=== PATIENT | male | born 1945 | race Caucasian/White ===

== ENCOUNTER 2016-09-05 15:16 | Inpatient (IN) | payer OTHER ==
[~2016-09-05] VITALS: Ht 172.7 cm; Wt 91.0 kg
[~2016-09-05 15:16] MED LIST: ASPEC81 PO; BETA0.1C3 TOP; CLOT1CRE3 TOP; CMD5 PO; CYCL-259 PO; DIGO0.1267 PO; HYDR1TAB2 PO; LISI5TAB3 PO; METO-217 PO; MULT-506 PO; NITR0.4S UT; PRLSR20 PO; SIMV80TA2 PO
[2016-09-05] MEDS ORDERED: SODIUM CHLORIDE 0.9% 1000ML 1,000 ML IV STA ×4 (15:47→17:50)
--- NOTE | 2016-09-05 15:53 | EMERGENCY ROOM VISIT NOTE ---
History Report prepared by Scribe: Annette Ram Under the Supervision of: Dr. Keven Hodge D.O. First contact with patient: 15:30 Chief Complaint: COUGH Stated Complaint: COUGHING, HOT History of Present Illness The patient is a 71 year old male who presents to the Emergency Room with complaints of persistent abdominal pain for the past 2 to 3 days. He is accompanied by his . He rates his discomfort as a 6/10 in severity. He denies any recent vomiting or diarrhea. He also complains of low back pain, intermittent fevers, diaphoresis and a cough for the past 1 month. The patient has a history of previous bypass surgery and mechanical valve replacement. He is currently on Coumadin and his admits to a family history of heart disease. Source of History: patient, spouse/significant other () Onset: 2 to 3 days [employer] Position: abdomen Symptom Intensity: 6/10 Timing: other (persistent) Associated Symptoms: + fevers, + diaphoresis, + cough, + back pain (low back pain), No vomiting, No diarrhea Review of Systems See HPI for pertinent positives & negatives. A total of 10 systems reviewed and were otherwise negative. Past Medical & Surgical Surgical Problems: (1) History of heart bypass surgery Family History Heart disease Social History Smoking Status: Former Smoker Alcohol Use: occasionally Drug Use: none Marital Status: Housing Status: lives with family Occupation Status: retired Current/Historical Medications Scheduled Digoxin (Digoxin), 0.125 MG PO DAILY Lisinopril (Zestril), 5 MG PO DAILY Metoprolol Succ (Toprol Xl) (Toprol-Xl), 25 MG PO DAILY Nitroglycerin (Nitrostat), 0.4 MG UT PRN Omeprazole (Prilosec), 20 MG PO QAM Simvastatin (Zocor), 80 MG PO QPM Warfarin Sodium (Warfarin Sodium), 2.5 TAB PO 2XWK Warfarin Sodium (Warfarin Sodium), 5 MG PO 5XWK Scheduled PRN Tramadol (Ultram), 50 MG PO DAILY PRN for Pain Allergies Coded Allergies: No Known Allergies (Verified , 12/03/11) Physical Exam Vital Signs Date Time Temp Pulse Resp B/P (MAP) Pulse Ox O2 Delivery O2 Flow Rate FiO2 09/05/16 17:45 98 Room Air 09/05/16 17:01 36.6 102 17 112/65 98 Room Air 09/05/16 16:43 126 20 90/65 95 Room Air 09/05/16 16:41 120 19 90/65 97 09/05/16 16:01 169 09/05/16 15:56 105 15 107/66 97 09/05/16 15:46 96 Room Air 09/05/16 15:45 177 09/05/16 15:45 96 Room Air 09/05/16 15:38 130 20 105/65 93 Room Air 09/05/16 15:23 36.3 94 20 64/48 94 Room Air Physical Exam GENERAL: Patient is awake, alert and mildly anxious appearing EYES: The conjunctivae are clear. The pupils are round and reactive. EARS, NOSE, MOUTH AND THROAT: The nose is without any evidence of any deformity. Mucous membranes are dry, tongue is midline NECK: The neck is nontender and supple. RESPIRATORY: Normal respiratory effort is noted there is no evidence of wheezing rhonchi or rales CARDIOVASCULAR: Heart sounds are irregular and tachycardic, no definite murmur noted to auscultation GASTROINTESTINAL: The abdomen is soft us mildly distended but soft. Bilateral lower abdominal tenderness to palpation, no guarding or rigidity. MUSCULOSKELETAL/EXTREMITIES: There is no evidence of gross deformity full range of motion is noted in the hips and shoulders SKIN: Trace pedal edema bilaterally. No signs of cellulitis. There is no obvious evidence of any rash. There are no petechiae, pallor or cyanosis noted. NEUROLOGIC: Patient is awake alert and oriented x3 Medical Decision & Procedures ER Provider Diagnostic Interpretation: Radiology results as stated below per my review and radiologist interpretation: CHEST ONE VIEW PORTABLE CLINICAL HISTORY: Sepsis. Cough. COMPARISON STUDY: Chest radiograph December 03, 2011. FINDINGS: There is no pneumothorax or pleural effusion. Median sternotomy wires are present. Mild to moderate cardiomegaly is unchanged. There is no evidence of pulmonary edema. There is no consolidation. IMPRESSION: No acute cardiopulmonary findings. Electronically signed by: Vipin Barnard M.D. 09/05/2016 4:[address] OF THE ABDOMEN AND PELVIS WITH CONTRAST CLINICAL HISTORY: Lower abdominal pain and fever. COMPARISON STUDY: None. TECHNIQUE: Following IV administration of 93 mL of Optiray-320, axial images of the abdomen and pelvis were obtained from the lung bases to the proximal femurs. Images were reviewed in the axial, sagittal, and coronal planes. IV contrast was administered without complication. CT DOSE: 532.89 mGy.cm FINDINGS: The heart is moderately enlarged. The liver, spleen, adrenal glands and pancreas are normal. Bilateral renal calculi are noted. The largest is a 6 mm left renal calculus. There are no ureteral calculi. There is no hydronephrosis. There is mild bladder wall thickening. Seminal vesicles are prominent. There are gallstones within the gallbladder. There is no pericholecystic infiltration. There is no biliary or pancreatic ductal dilatation. Mild mesenteric infiltration is of doubtful significance. There is sigmoid diverticulosis without evidence for acute diverticulitis. The appendix is normal. No suspicious skeletal lesions are identified. There is an old T12 compression deformity. There is a 1.2 cm left renal cyst. IMPRESSION: 1. Bilateral nephrolithiasis. No ureteral calculi or hydronephrosis. 2. Mild bladder wall thickening which could be correlated with urinalysis. 3. Cholelithiasis. No evidence of acute cholecystitis. 4. Normal appendix. No bowel obstruction. Electronically signed by: Vipin Barnard M.D. 09/05/2016 4:37 PM Laboratory Results Test 09/05/16 15:44 09/05/16 15:45 09/05/16 15:48 09/05/16 16:56 Bedside Hemoglobin 17.0 g/dl (14.0-18.0) Bedside Hematocrit 50 % (42-52) Bedside Sodium 138 mEq/L (135-144) Bedside Potassium 3.7 mEq/L (3.3-5.0) Bedside Chloride 97 mEq/L (101-112) Bedside Total CO2 26 mEq/l (24-31) Bedside Blood Urea Nitrogen 21 mg/dl (7-18) Bedside Creatinine 1.5 mg/dl (0.6-1.3) Bedside Glucose (other) 203 mg/dl (70-99) Bedside Ionized Calcium ([place]) 1.12 mmol/l (1.12-1.32) Erythrocyte Sedimentation Rate 31 mm/hr (0-14) C-Reactive Protein 11.40 mg/dl (0-0.29) Pro-B-Type Natriuretic Peptide 5958 pg/ml (0-900) Globulin 3.9 gm/dl (2.5-4.0) Albumin/Globulin Ratio 1.0 (0.9-2) Lipase 86 U/L (73-393) Thyroid Stimulating Hormone (TSH) 3.230 uIu/ml (0.300-4.500) Free Thyroxine 1.15 ng/dl (0.80-1.60) Random Cortisol 62.84 mcg/dl Digoxin Level 0.8 ng/ml (0.8-2.0) Bedside Lactic Acid Venous 2.97 mmol/L (0.90-1.70) Activated Partial Thromboplast Time 53.1 SECONDS (21.0-31.0) Partial Thromboplastin Ratio 2.0 Venous Blood pH 7.43 (7.36-7.41) Venous Blood Partial Pressure CO2 32 mmHg (38.0-50.0) Venous Blood Partial Pressure O2 43 mmHg Venous Blood HCO3 21 mmol/L Venous Blood Oxygen Saturation 81.9 % Venous Blood Base Excess -2.6 mmol/L Test 09/05/16 17:10 Urine Color DK YELLOW Urine Appearance CLOUDY (CLEAR) Urine pH 5.5 (4.5-7.5) Urine Specific [place] > 1.045 (1.000-1.030) Urine Protein 2+ (NEG) Urine Glucose (UA) TRACE (NEG) Urine Ketones NEG (NEG) Urine Occult Blood 3+ (NEG) Urine Nitrite POS (NEG) Urine Bilirubin NEG (NEG) Urine Urobilinogen POS (NEG) Urine Leukocyte Esterase MODERATE (NEG) Urine WBC (Auto) >30 /hpf (0-5) Urine RBC (Auto) 10-30 /hpf (0-4) Urine Hyaline Casts (Auto) 10-30 /lpf (0-5) Urine Epithelial Cells (Auto) 5-10 /lpf (0-5) Urine Bacteria (Auto) 4+ (NEG) Laboratory results per my review. Medications Administered Medications (Trade) Dose Ordered Sig/Bobby Route Start Time Stop Time Status Last Admin Dose Admin Sodium Chloride 1,000 ml @ 999 mls/hr Q1H1M STAT IV 09/05/16 15:47 09/05/16 16:47 DC 09/05/16 15:47 999 MLS/HR Sodium Chloride 1,000 ml @ 200 mls/hr Q5H STAT IV 09/05/16 15:47 09/05/16 19:50 DC 09/05/16 16:40 200 MLS/HR Levofloxacin (Levaquin / D5W) 750 mg NOW STAT IV 09/05/16 16:42 09/05/16 16:43 DC 09/05/16 16:46 750 MG Sodium Chloride 1,000 ml @ 999 mls/hr Q1H1M STAT IV 09/05/16 17:01 09/05/16 18:01 DC 09/05/16 17:01 999 MLS/HR Sodium Chloride 1,000 ml @ 999 mls/hr Q1H1M STAT IV 09/05/16 17:50 09/05/16 18:50 DC 09/05/16 17:50 999 MLS/HR ECG Indication: abdominal pain Rate (beats per minute): 167 Rhythm: atrial fibrillation Findings: other (low voltage QRS, diffuse ST segment abnormalities) Comparison ECG Date: Changes are new when compared to EKG from December 03, 2011 ED Course 1542: The patient was evaluated in room A3. A complete history and physical examination were performed. 1547: NSS 1000 ml @ 200 mls/hr IV, NSS 1000 ml @ 999 mls/hr IV. 1642: Levaquin 750 mg IV. 1701: NSS 1000 ml @ 999 mls/hr IV. 1714: I [facility] the [facility] The patient will be further evaluated. Medical Decision Medication Reconciliation: I attest that I have personally reviewed the patient' s current medications list. Blood pressure screening: Patient was found to have a low blood pressure and was referred to their primary doctor for recheck and further treatment. Prior records/ancillary studies reviewed. Triage Nursing notes reviewed. The patient's history was concerning for sepsis. Differential diagnosis: Etiologies such as sepsis, UTI, pneumonia, metabolic, electrolyte abnormalities , cardiac sources, intracerebral event, toxicologic, neurologic, as well as others were entertained. The patient is a 71-year-old male who presented to the emergency department with generalized weakness. He was found have rapid atrial fibrillation with ST segment abnormalities which could be consistent with ischemia. He was also very hypotensive. I do feel the patient's underlying issue was from an infectious process and this may have put him into this dysrhythmia. This reason the primary infectious process was treated with IV fluids and IV antibiotics prior to initiating any treatment for this dysrhythmia. Currently the patient is taking blood thinners because of valve replacement surgery in the past. The patient was reevaluated multiple times. His condition improved clinically however his blood pressure continued to be low. I discussed the patient's laboratory radiographic studies with him. He stated that he felt much better. I discussed his case with the on-call [facility]. They've agreed to evaluate the patient in the emergency department for further management and disposition. Consults Time Called: 171 Consulting Physician: Little Forrester Returned Call: [phone] I discussed the patients case with Little Forrester. The patient will be further evaluated. Impression Primary Impression: Sepsis Additional Impressions: Atrial fibrillation with RVR Rhabdomyolysis ANTWAN (acute kidney injury) Pyelonephritis Critical Care I have personally spent greater than 45 minutes of critical care time in the direct management of this patient. This includes bedside care, interpretation of diagnostic studies, and testing, discussion with consultants, patient, and family members, and other required patient management activities. This 45 minutes is in excess of all separately billable procedures. Scribe Attestation The scribe's documentation has been prepared under my direction and personally reviewed by me in its entirety. I confirm that the note above accurately reflects all work, treatment, procedures, and medical decision making performed by me. Departure Information Dispostion Being Evaluated By Hospitalist Omar Quiles M.D. (PCP) Patient Instructions My [facility] Problem Qualifiers Primary Impression: Sepsis Sepsis type: sepsis due to unspecified organism Qualified Codes: A41.9 - Sepsis, unspecified organism
[2016-09-05 15:55] LABS: BASO % 0.1 %; BASO ABS # 0.01 K/uL (0-0.2); COMPLETE YES; HEMATOCRIT 47.2 % (42-52); IG% 0.5 %; LYMPH % 3.5 %; LYMPH ABS # 0.28 K/uL (1.2-3.4); MEAN CELL VOLUME 90.8 fL (80-100); MEAN CORPUSCULAR HEMOGLOBIN 32.3 pg (25-34); MEAN CORPUSCULAR HGB CONC 35.6 g/dl (32-36); MEAN PLATELET VOLUME 11.8 fL (7.4-10.4); MONO % 3.6 %; NEUT % 92.3 %; PLATELET COUNT 132 K/uL (130-400)
[2016-09-05 15:58] LABS: ISTAT CREATININE 1.5 mg/dl (0.6-1.3); ISTAT IONIZED CALCIUM 1.12 mmol/l (1.12-1.32)
[2016-09-05] MEDS ORDERED: OPTIRAY 320 IV PRN (16:00)
[2016-09-05 16:13] LABS: BUN/CREATININE RATIO 11.3 (10-20); CALCIUM 8.9 mg/dl (8.5-10.1); CREATININE 1.7 mg/dl (0.60-1.40); MAGNESIUM 2.4 mg/dl (1.8-2.4); POTASSIUM 3.7 mmol/L (3.5-5.1)
--- NOTE | 2016-09-05 16:13 | DIAGNOSTIC IMAGING REPORT ---
CHEST ONE VIEW PORTABLE CLINICAL HISTORY: Sepsis. Cough. COMPARISON STUDY: Chest radiograph December 03, 2011. FINDINGS: There is no pneumothorax or pleural effusion. Median sternotomy wires are present. Mild to moderate cardiomegaly is unchanged. There is no evidence of pulmonary edema. There is no consolidation. IMPRESSION: No acute cardiopulmonary findings. Electronically signed by: Vipin Barnard M.D. 09/05/2016 4:12 PM Dictated Date/Time: 09/05/2016 4:11 PM
[2016-09-05] MEDS ORDERED: WARF-246 PO ×2 (16:26→16:44)
[2016-09-05 16:35] LABS: C-REACTIVE PROTEIN 11.4 mg/dl (0-0.29); CKMB/CK RATIO 0.2 (0-3.0); PHOSPHORUS 1.4 mg/dl (2.5-4.9); THYROID STIMULATING HORMONE 3.23 uIu/ml (0.300-4.500)
--- NOTE | 2016-09-05 16:38 | DIAGNOSTIC IMAGING REPORT ---
CT OF THE ABDOMEN AND PELVIS WITH CONTRAST CLINICAL HISTORY: Lower abdominal pain and fever. COMPARISON STUDY: None. TECHNIQUE: Following IV administration of 93 mL of Optiray-320, axial images of the abdomen and pelvis were obtained from the lung bases to the proximal femurs. Images were reviewed in the axial, sagittal, and coronal planes. IV contrast was administered without complication. CT DOSE: 532.89 mGy.cm FINDINGS: The heart is moderately enlarged. The liver, spleen, adrenal glands and pancreas are normal. Bilateral renal calculi are noted. The largest is a 6 mm left renal calculus. There are no ureteral calculi. There is no hydronephrosis. There is mild bladder wall thickening. Seminal vesicles are prominent. There are gallstones within the gallbladder. There is no pericholecystic infiltration. There is no biliary or pancreatic ductal dilatation. Mild mesenteric infiltration is of doubtful significance. There is sigmoid diverticulosis without evidence for acute diverticulitis. The appendix is normal. No suspicious skeletal lesions are identified. There is an old T12 compression deformity. There is a 1.2 cm left renal cyst. IMPRESSION: 1. Bilateral nephrolithiasis. No ureteral calculi or hydronephrosis. 2. Mild bladder wall thickening which could be correlated with urinalysis. 3. Cholelithiasis. No evidence of acute cholecystitis. 4. Normal appendix. No bowel obstruction. Electronically signed by: Vipin Barnard M.D. 09/05/2016 4:37 PM Dictated Date/Time: 09/05/2016 4:28 PM
[2016-09-05] MEDS ORDERED: LEVAQUIN 750MG / 150ML D5W IV STA (16:42)
[2016-09-05] MEDS ORDERED: LISI-729 PO (16:44)
[2016-09-05] MEDS ORDERED: METO25TA3 PO (16:44)
[2016-09-05] MEDS ORDERED: LNX125 PO (16:44)
[2016-09-05] MEDS ORDERED: TRAM-10 PO (16:44)
[2016-09-05 17:02] LABS: VEN BLD GAS O2 SATURATION 81.9 %; VEN BLOOD GAS BASE EXCESS -2.6 mmol/L
[2016-09-05 17:21] LABS: INR 2.9 (0.9-1.1); PROTHROMBIN TIME (PATIENT) 32.8 SECONDS (9.0-12.0)
[2016-09-05 17:24] LABS: URINE APPEARANCE CLOUDY (CLEAR); URINE COLOR DK YELLOW; URINE NITRITE POS (NEG); URINE PH 5.5 (4.5-7.5); URINE SPECIFIC GRAVITY > 1.045 (1.000-1.030); UROBILINOGEN POS (NEG); ZZUR CULT IF INDIC CLEAN CATCH YES
[2016-09-05 17:27] LABS: MANUAL MICROSCOPIC REQUIRED? NO; REVIEW REQ? YES
[2016-09-05 17:28] LABS: URINE BILIRUBIN NEG (NEG)
[2016-09-05 17:45] VITALS: O2SAT 98; Ht 172.7 cm; Wt 91.0 kg
[2016-09-05] MEDS ORDERED: ACETAMINOPHEN 325 MG TAB PO PRN (17:45)
[2016-09-05] MEDS ORDERED: TRAMADOL HCL 50 MG TAB PO PRN (17:45)
[2016-09-05] MEDS ORDERED: NITROGLYCERIN 0.4 MG SL PER TAB CHARGE UT SCH (17:45)
[2016-09-05] MEDS ORDERED: MAGNESIUM HYDROXIDE SUSP 30 ML UDC PO PRN (17:45)
[2016-09-05] MEDS ORDERED: ONDANSETRON INJ 2 MG/ML 2 ML VIAL IV PRN (17:45)
[2016-09-05] MEDS ORDERED: ALUMINUM/MAGNESIUM/SIMETH (MAALOX MAX) 30 ML UDC PO PRN (17:45)
[2016-09-05] MEDS ORDERED: PIPERACILL/TAZOBAC IV 3.375 GM in DEXTROSE 5% 100ML 100 ML IV SCH (17:45)
[2016-09-05] MEDS ORDERED: NITROGLYCERIN 0.4 MG SL PER TAB CHARGE SL PRN (17:45)
[2016-09-05] MEDS ORDERED: SODIUM PHOSPHATE 3 MMOL/1 ML INFUSION IV STA (17:53)
[2016-09-05] MEDS ORDERED: SODIUM PHOSPHATE INJ 30 MMOL in SODIUM CHLORIDE 0.9% 500ML 500 ML IV STA (18:05)
[2016-09-05] MEDS ORDERED: VANCOMYCIN INJ 2,000 MG in SODIUM CHLORIDE 0.9% 500ML 500 ML IV STA (18:09)
[2016-09-05] MEDS ORDERED: PIPERACILL/TAZOBAC CONSULT ACTIVE PRN (18:15)
[2016-09-05] MEDS ORDERED: VANCOMYCIN CONSULT ACTIVE PRN (18:15)
[2016-09-05] MEDS ORDERED: DEXTROSE 50% 50 ML SYR IV PRN (18:30)
[2016-09-05] MEDS ORDERED: GLUCOSE 10 TABS/TUBE PO PRN (18:30)
[2016-09-05] MEDS ORDERED: GLUCAGON FOR INJ 1 MG VIAL SQ PRN (18:30)
[2016-09-05] MEDS ORDERED: GLUCOSE 40% GEL 15 GM TUBE PO PRN (18:30)
--- NOTE | 2016-09-05 18:55 | DIAGNOSTIC IMAGING REPORT ---
ABDOMINAL ULTRASOUND, RIGHT UPPER QUADRANT HISTORY: Elevated liver function tests. Nausea. COMPARISON: CT of the abdomen and pelvis September 05, 2016. FINDINGS: Liver morphology is normal. No hepatic lesions are identified. There is no biliary ductal dilatation. The common bile duct measures 4 mm in caliber. There are multiple gallstones within gallbladder. There is no gallbladder wall thickening. The pancreas is obscured by overlying bowel gas. There is no right hydronephrosis. IMPRESSION: 1. Cholelithiasis. No evidence of acute cholecystitis. 2. No biliary ductal dilatation. Electronically signed by: Vipin Barnard M.D. 09/05/2016 6:54 PM Dictated Date/Time: 09/05/2016 6:52 PM
--- NOTE | 2016-09-05 19:22 | HISTORY & PHYSICAL EXAMINATION ---
DATE OF ADMISSION: 09/05/2016 CHIEF COMPLAINT: Not feeling well. HISTORY OF PRESENT ILLNESS: A 71-year-old male with past medical history significant for atrial fibrillation status post aortic valve replacement on Coumadin,history of left shoulder tendinitis, hyperlipidemia, who presents with not feeling well and found to be hypotensive. The patient states since 1 week ago, he had cold-like symptoms, went to [facility], was told he is suffering from cold and was not prescribed any medications, but he continued to have a lot of cough and he has a lot of nausea, vomited a couple of times and had diarrhea for 1.5 day and he is not eating much since last week and also has sweating and had some temperatures at home. Generally not feeling good and came to the ER today and found to be hypotensive. He had iv fluid bolus and currently blood pressure is improving.He was in rapid AFib which is also improve currently. Resting and talking comfortably. Denies any headaches, no blurred vision, no neck pain, no chest pain, no abdominal pain, no leg swelling, no rash. ALLERGIES: No known drug allergies. PAST MEDICAL HISTORY: As mentioned above. PAST SURGICAL HISTORY: No past surgical history. MEDICATIONS: The patient is on Toprol-XL 25 mg p.o. daily, digoxin 125 mcg p.o. daily, lisinopril 5 mg p.o. daily, hydrocodone/acetaminophen 5 mg one tablet p.o. q. 6 hours p.r.n. pain, multivitamins 1 tablet p.o. daily, cyclobenzaprine 10 mg p.o. b.i.d. p.r.n., Coumadin as directed, simvastatin 80 mg p.o. daily, omeprazole 20 mg p.o. daily. FAMILY HISTORY: Significant for sister has diabetes. Brother has NM at age of 63. Another brother of NM at age of 56. Father of NM at age of 63. SOCIAL HISTORY: Former smoker, quit in 1995. Alcohol occasional. No drug use. . REVIEW OF SYMPTOMS: As per HPI. Rest of review of symptoms is negative. PHYSICAL EXAMINATION: GENERAL: The patient is of moderate build, not in distress. VITAL SIGNS: Temperature 36.3, pulse in 120s, respiratory rate 20, blood pressure when he came in was 64/48, now 90/65, oxygen 95% room air. HEENT: No pallor, no icterus. Pupils equal, round, and reactive to light. NECK: No JVD, no neck masses, no carotid bruits. CARDIOVASCULAR: S1, S2 heard. Irregular tachycardia. No murmur. RESPIRATORY: Clear to auscultation bilaterally. No wheezing, no crackles, no accessory muscle use. ABDOMEN: Soft, bowel sounds present. Nontender. No distention. CENTRAL NERVOUS SYSTEM: Cranial nerves II-XII are grossly intact. Nonfocal. EXTREMITIES: No edema, no erythema. LABORATORIES: Sodium 138, potassium 3.7, chloride 102, bicarb 25, BUN 19, creatinine 1.7, serum glucose 202, calcium 8.9, phosphorus 1.4, magnesium 2, AST 99, ALT 57, alkaline phosphatase 68, total creatinine kinase 1722, troponin I 0.08. BNP 5000. TSH 3.2, lipase 86. Free T4 1.15. Random cortisol 62. Urinalysis positive for leukocyte esterase, and positive for nitrite. WBC 8, hemoglobin 16.8, hematocrit 47.2, platelets 132. ESR 31. IMAGING: Chest x-ray: No acute process seen. CT of the abdomen and pelvis shows bilateral nephrolithiasis, No hydronephrosis, mild bladder wall thickening.Cholelithiasis. There is no evidence of acute cholecystitis, no bowel obstruction. EKG shows AFib with rapid ventricular response with a rate of 167, some ST-T wave abnormalities, T-wave inversions in anterior leads. ASSESSMENT AND PLAN: This is a 71-year-old male who presents with possible sepsis. 1. Possible sepsis, patient presents with having some fever at home, tachycardia. Urinalysis positive, having cough for some time, but chest x-ray was unremarkable, and also has nausea and vomiting and CT abdomen and pelvis shows some gallstones, but no acute cholecystitis, but bladder wall thickening shown and urinalysis positive for urinary tract infection. Source of infection could be urinary tract infection, and possible pneumonia. We will place him on IV Zosyn, IV vancomycin and p.o. doxycycline. Follow his cultures. Aggressive IV fluids. Lactic acid is 2.9, will repeat the lactic acid in 6 hours and monitor his hemodynamics.Close monitoring in tele floor. 2. Rapid atrial fibrillation. The patient is on metoprolol and digoxin at home. We will hold the metoprolol as patinet is hypotensive mostly in sepsis. We will . If patient does not improve with fluid resuscitation and antibiotics we will give IV digoxin and consider consulting cardiology in the a.m. 3. Acute renal failure, baseline creatinine 0.8, Presented with creatinine of 1.7 secondary to above, on IV fluids. We will follow the labs in a.m. 4. Hypophosphatemia. We will replace and follow the labs. 5 Mild elevation in troponin, most likely demand ischemia from rapid atrial fibrillation and sepsis. We will follow the serial cardiac enzymes. We will consider echo. 6. History of aortic valve replacement, on Coumadin. INR is 2.9. We will follow the PT/INR. 7. History of hyperlipidemia. Hold statin for now. Elevated CPK. We will follow the labs. 8. Hypertension, currently hypotensive. Holding the lisinopril and metoprolol. We will monitor the blood pressure. 9 DVT prophylaxis On Coumadin. 10. Hyperglycemia we will place on insulin sliding scale and check HbA1c levels. 11. Disposition. Close monitoring in the tele floor, full code. MTDD
[2016-09-05] MEDS ORDERED: PIPERACILL/TAZOBAC IV 3.375 GM in DEXTROSE 5% 100ML IV ONE (20:00)
[2016-09-05 20:07] VITALS: BP 114/78; PULSE 94; TEMP 37; O2SAT 99
--- NOTE | 2016-09-05 20:09 | Pharmacy Progress Note ---
Pharmacy Abx Initial Consult Date of Service Sep 05, 2016. Pharmacy Dosing Scope Date of Consult: 09/05/16 Consultation requested by: Dr. Soto Pharmacy is consulted to initiate vancomycin and Zosyn IV dosing therapy, order appropriate labs and adjust drug dose/frequency. Subjective The patient is a 71 year old male admitted on Sep 05, 2016. Objective Height (Feet): 5 Height (Inches): 8.00 Weight (Kilograms): 84.200 Vital Signs (Past 12Hrs) Vital Signs Past 12 Hours Date Time Temp Pulse Resp B/P (MAP) Pulse Ox O2 Delivery O2 Flow Rate FiO2 09/05/16 19:16 37.0 110 20 106/70 94 Room Air 09/05/16 17:45 98 Room Air 09/05/16 17:01 36.6 102 17 112/65 98 Room Air 09/05/16 16:43 126 20 90/65 95 Room Air 09/05/16 16:41 120 19 90/65 97 09/05/16 16:01 169 09/05/16 15:56 105 15 107/66 97 09/05/16 15:46 96 Room Air 09/05/16 15:45 177 09/05/16 15:45 96 Room Air 09/05/16 15:38 130 20 105/65 93 Room Air 09/05/16 15:23 36.3 94 20 64/48 94 Room Air Lab Results (24Hrs) Laboratory Tests (24 Hours) Test 09/05/16 15:45 C-Reactive Protein 11.40 mg/dl (0-0.29) H Erythrocyte Sedimentation Rate 31 mm/hr (0-14) H White Blood Count 8.00 K/uL (4.8-10.8) Red Blood Count 5.20 M/uL (4.7-6.1) Hemoglobin 16.8 g/dL (14.0-18.0) Hematocrit 47.2 % (42-52) Mean Corpuscular Volume 90.8 fL (80-100) Mean Corpuscular Hemoglobin 32.3 pg (25-34) Mean Corpuscular Hemoglobin Concent 35.6 g/dl (32-36) Platelet Count 132 K/uL (130-400) Mean Platelet Volume 11.8 fL (7.4-10.4) H Neutrophils (%) (Auto) 92.3 % Lymphocytes (%) (Auto) 3.5 % Monocytes (%) (Auto) 3.6 % Eosinophils (%) (Auto) 0.0 % Basophils (%) (Auto) 0.1 % Neutrophils # (Auto) 7.38 K/uL (1.4-6.5) H Lymphocytes # (Auto) 0.28 K/uL (1.2-3.4) L Monocytes # (Auto) 0.29 K/uL (0.11-0.59) Eosinophils # (Auto) 0.00 K/uL (0-0.5) Basophils # (Auto) 0.01 K/uL (0-0.2) Total Creatine Kinase 1722 U/L (39-308) H Micro Results Date/Time Source Procedure Growth Status 09/05/16 16:00 Blood Blood Culture Pending Received 09/05/16 15:45 Blood Blood Culture Pending Received 09/05/16 17:10 Urine , Clean Catch Urine Culture Pending Received Assessment & Plan Assessment 71 year old male with sepsis secondary to UTI and possible pneumonia. Est PK parameters for vanc: Vd 0.7 L/kg, Uday 0.04 hr-1, t1/2 17.3 hrs; baseline SCr 0.8-1 but dosing vanc off of current SCr since it is significantly elevated from baseline - will need to adjust regimen if SCr improves Plan Vancomycin IV for pneumonia * Loading dose: 2000 mg (25 mg/kg) * Maintenance dose: 1250 mg IV (15 mg/kg) every 20 hours * Goal trough level for pneumonia : 15 to 20 mcg/mL * Trough level ordered for 09/07/16 prior to the 3rd dose - note that this will be prior to steady state * MRSA swab also ordered to determine if vancomycin is necessary (no risk factors for MRSA) Piperacillin/tazobactam for complicated UTI * 3.375 g bolus administered over 30 minutes, then 3.375 g IV extended infusion every 8 hours for CrCl greater than 20 mL/min Doxycycline not being dosed by pharmacy but is appropriate Pharmacy will continue to follow and will adjust dose/frequency as necessary. Thank you.
[2016-09-05] MEDS ORDERED: SODIUM CHLORIDE 0.9% 1000ML 1,000 ML IV SCH (20:15)
[2016-09-05] MEDS: INSULIN ASPART 100 UNITS/ML 3 ML PEN SC SCH (21:00)
[2016-09-05] MEDS: WARFARIN SOD 5 MG TAB PO SCH (21:09)
[2016-09-05] MEDS: DOXYCYCLINE HYCLATE 100 MG CAP PO SCH (21:52)
[2016-09-05] MEDS: SIMVASTATIN 80 MG TAB PO SCH (21:52)
[2016-09-05] MEDS: SODIUM CHLORIDE 0.9% 1000ML 1,000 ML IV SCH (23:38)
[2016-09-05] MEDS: PIPERACILL/TAZOBAC IV 3.375 GM in DEXTROSE 5% 100ML IV SCH (23:38)
[2016-09-05 23:52] VITALS: BP 109/73; PULSE 104; TEMP 36.7; O2SAT 98
[2016-09-06 02:11] LABS: CKMB/CK RATIO 0.3 (0-3.0)
[2016-09-06 04:31] VITALS: BP 116/80; PULSE 115; TEMP 37.4; O2SAT 95
[2016-09-06 06:23] LABS: INR 3.5 (0.9-1.1); PROTHROMBIN TIME (PATIENT) 39.7 SECONDS (9.0-12.0)
[2016-09-06] MEDS: SODIUM CHLORIDE 0.9% 1000ML 1,000 ML IV SCH ×3 (06:26→19:45)
[2016-09-06 06:39] LABS: COMPLETE YES; DOHLE BODIES 1+; EOS % 0.2 %; HEMATOCRIT 36.6 % (42-52); IG% 0.5 %; LYMPH % 6.8 %; LYMPH ABS # 0.41 K/uL (1.2-3.4); MEAN CELL VOLUME 88.8 fL (80-100); MEAN CORPUSCULAR HEMOGLOBIN 31.6 pg (25-34); MEAN CORPUSCULAR HGB CONC 35.5 g/dl (32-36); MEAN PLATELET VOLUME 11.3 fL (7.4-10.4); MONO % 4.1 %; NEUT % 88.4 %; PLATELET COUNT 96 K/uL (130-400); PLT ESTIMATE DECREASED; RED BLOOD COUNT 4.12 M/uL (4.7-6.1); WHITE BLOOD COUNT 6.07 K/uL (4.8-10.8)
[2016-09-06] MEDS: INSULIN ASPART 100 UNITS/ML 3 ML PEN SC SCH ×4 (07:00→21:00)
[2016-09-06 07:04] LABS: BUN/CREATININE RATIO 14.4 (10-20); CALCIUM 7.2 mg/dl (8.5-10.1); CHOLESTEROL/HDL RATIO 14.7; CREATININE 0.92 mg/dl (0.60-1.40); PHOSPHORUS 1.8 mg/dl (2.5-4.9); POTASSIUM 3.3 mmol/L (3.5-5.1)
[2016-09-06 07:07] LABS: LYME DISEASE AB IGG NEG (NEG); LYME DISEASE AB IGM NEG (NEG)
[2016-09-06 07:39] VITALS: BP 113/74; PULSE 111; TEMP 36.9; O2SAT 92
[2016-09-06] MEDS: PIPERACILL/TAZOBAC IV 3.375 GM in DEXTROSE 5% 100ML IV SCH ×3 (08:15→23:56)
[2016-09-06] MEDS: PANTOprazole SOD 40 MG TAB PO SCH (08:16)
[2016-09-06] MEDS: DOXYCYCLINE HYCLATE 100 MG CAP PO SCH ×2 (08:17→19:47)
[2016-09-06] MEDS ORDERED: DIGOXIN IV 125 MCG in SYRINGE 9.5 ML IV ONE (08:45)
[2016-09-06] MEDS ORDERED: POTASSIUM PHOS 3 MMOL/1 ML INFUSION IV STA (09:50)
[2016-09-06] MEDS ORDERED: METOPROLOL TARTRATE 1 MG/ML VIAL IV ONE (10:00)
[2016-09-06] MEDS ORDERED: POTASSIUM PHOSPHATE INJ 30 MMOL in SODIUM CHLORIDE 0.9% 500ML 500 ML IV ONE (10:30)
[2016-09-06] MEDS ORDERED: POTASSIUM CHLORIDE 10 MEQ TABCR PO ONE (10:30)
[2016-09-06] MEDS ORDERED: VANCOMYCIN INJ 1,250 MG in SODIUM CHLORIDE 0.9% 250ML 250 ML IV SCH ×2 (11:00→14:00)
--- NOTE | 2016-09-06 11:25 | DIAGNOSTIC IMAGING REPORT ---
CHEST ONE VIEW PORTABLE CLINICAL HISTORY: Cough. COMPARISON STUDY: 09/05/2016 FINDINGS: There are postsurgical changes of midline sternotomy. The heart is enlarged. There is no failure. There is no focal pulmonary consolidation. There are no pleural effusions.[ IMPRESSION: Cardiomegaly. No acute findings. Electronically signed by: Byron Beck M.D. 09/06/2016 11:24 AM Dictated Date/Time: 09/06/2016 11:23 AM
[2016-09-06 11:33] LABS: CKMB/CK RATIO 0.3 (0-3.0)
[2016-09-06 11:39] VITALS: BP 120/80; PULSE 107; TEMP 36.6; O2SAT 96
[2016-09-06 15:19] VITALS: BP 117/83; PULSE 111; TEMP 36.7; O2SAT 99
[2016-09-06] MEDS: WARFARIN SOD 5 MG TAB PO SCH (15:38)
[2016-09-06] MEDS: DIGOXIN 0.125 MG TAB PO SCH (15:45)
--- NOTE | 2016-09-06 15:47 | Progress Note ---
Internal Med Progress Note Date of Service: Sep 06, 2016. Provider Documentation: SUBJECTIVE: FEELING SLIGHTLY BETTER STILL HAS COUGH ABDOMINAL PAIN IS BETTER NO NAUSEA SLEPT OK OBJECTIVE: Vital Signs-as noted below Exam: General-alert and awake. Not in distress HEENT-Normal hearing Neck-no neck masses, supple Lungs-cta b/l no wheezing or crackles Heart-s1 and s2 heard irregular ,tachycardia, no murmurs Abdomen-soft bowel sounds present non tender no distension Extremities- no edema present no erythema Neuro-alert and awake moves extremities Lab data as noted below. ASSESSMENT & PLAN: This is a 71-year-old male who presents with possible sepsis. 1. Possible sepsis, patient presents with having some fever at home, tachycardia. Urinalysis positive, having cough for some time, but chest x-ray was unremarkable, and also has nausea and vomiting and CT abdomen and pelvis shows some gallstones, but no acute cholecystitis, but bladder wall thickening shown and urinalysis positive for urinary tract infection. Source of infection could be urinary tract infection, and possible pneumonia. Started on IV Zosyn, IV vancomycin and p.o. doxycycline. Follow his cultures. Aggressive IV fluids. Lactic acid is 2.9, will repeat the lactic acid in 6 hours and monitor his hemodynamics.Close monitoring in tele floor. 09/06/16 lactic acid normalized f/u cx continue current abx. 2. Rapid atrial fibrillation. The patient is on metoprolol and digoxin at home. Metoprolol held as patient is hypotensive. Currently blood pressure improved received a dose of iv digoxin and iv Lopressor. iv Lopressor prn Will restart Toprol xl in am. 3. Acute renal failure, baseline creatinine 0.8, Presented with creatinine of 1.7 secondary to above, on IV fluids. We will follow the labs in a.m. Resolved. 4. Hypophosphatemia. We will replace and follow the labs. 5 Mild elevation in troponin, most likely demand ischemia from rapid atrial fibrillation and sepsis. We will follow the serial cardiac enzymes. We will consider echo. 6. History of aortic valve replacement, on Coumadin. INR is 3.5. Hold Coumadin tonight. We will follow the PT/INR. 7. History of hyperlipidemia. Hold statin for now. Elevated CPK. We will follow the labs.CPK trending down. On high dose stain may need to cut down or change to Lipitor 40mg daily.. 8. Hypertension, currently hypotensive. Holding the lisinopril and metoprolol. We will monitor the blood pressure and possible restart them in am. . 9 DVT prophylaxis On Coumadin. 10. Hyperglycemia we will place on insulin sliding scale and check HbA1c levels. 11. Disposition. Close monitoring in the tele floor, full code. to be determined pt/ot when more stable Vital Signs: Date Time Temp Pulse Resp B/P (MAP) Pulse Ox O2 Delivery O2 Flow Rate FiO2 09/06/16 20:22 37.0 133 20 148/84 (105) 91 Room Air 09/06/16 16:57 135 117/83 09/06/16 16:00 Room Air 09/06/16 15:45 126 09/06/16 15:19 36.7 111 20 117/83 (94) 99 Room Air 09/06/16 12:00 Room Air 09/06/16 11:39 36.6 107 16 120/80 (93) 96 Room Air 09/06/16 11:34 135 128/64 09/06/16 08:46 143 09/06/16 08:00 Room Air 09/06/16 07:39 36.9 111 18 113/74 (87) 92 Room Air 09/06/16 04:31 37.4 115 20 116/80 (92) 95 Room Air 09/06/16 04:00 Room Air 09/05/16 23:59 Room Air 09/05/16 23:52 36.7 104 16 109/73 (85) 98 Room Air Lab Results: Results Past 24 Hours Test 09/05/16 21:00 09/05/16 21:04 09/06/16 01:18 09/06/16 05:50 Range/Units Lactic Acid Level 1.7 2.2 0.4-2.0 mmol/L Bedside Glucose 131 70-99 mg/dl Total Creatine Kinase 1390 39-308 U/L Creatine Kinase MB 3.8 0.5-3.6 ng/ml Creatine Kinase MB Ratio 0.3 0-3.0 Troponin I 0.062 0-0.045 ng/ml White Blood Count 6.07 4.8-10.8 K/uL Red Blood Count 4.12 4.7-6.1 M/uL Hemoglobin 13.0 14.0-18.0 g/dL Hematocrit 36.6 42-52 % Mean Corpuscular Volume 88.8 80-100 fL Mean Corpuscular Hemoglobin 31.6 25-34 pg Mean Corpuscular Hemoglobin Concent 35.5 32-36 g/dl Platelet Count 96 130-400 K/uL Mean Platelet Volume 11.3 7.4-10.4 fL Neutrophils (%) (Auto) 88.4 % Lymphocytes (%) (Auto) 6.8 % Monocytes (%) (Auto) 4.1 % Eosinophils (%) (Auto) 0.2 % Basophils (%) (Auto) 0.0 % Neutrophils # (Auto) 5.37 1.4-6.5 K/uL Lymphocytes # (Auto) 0.41 1.2-3.4 K/uL Monocytes # (Auto) 0.25 0.11-0.59 K/uL Eosinophils # (Auto) 0.01 0-0.5 K/uL Basophils # (Auto) 0.00 0-0.2 K/uL RDW Standard Deviation 40.7 36.4-46.3 fL RDW Coefficient of Variation 12.6 11.5-14.5 % Immature Granulocyte % (Auto) 0.5 % Immature Granulocyte # (Auto) 0.03 0.00-0.02 K/uL Dohle Bodies 1+ Platelet Estimate DECREASED Prothrombin Time 39.7 9.0-12.0 SECONDS Prothromb Time International Ratio 3.5 0.9-1.1 Sodium Level 142 136-145 mmol/L Potassium Level 3.3 3.5-5.1 mmol/L Chloride Level 110 98-107 mmol/L Carbon Dioxide Level 21 21-32 mmol/L Anion Gap 11.0 3-11 mmol/L Blood Urea Nitrogen 13 7-18 mg/dl Creatinine 0.92 0.60-1.40 mg/dl Est Creatinine Clear Calc Drug Dose 82.2 ml/min Estimated GFR () 98.0 Estimated GFR (Non- 84.6 BUN/Creatinine Ratio 14.4 10-20 Random Glucose 96 70-99 mg/dl Calcium Level 7.2 8.5-10.1 mg/dl Phosphorus Level 1.8 2.5-4.9 mg/dl Magnesium Level 2.0 1.8-2.4 mg/dl Total Bilirubin 1.4 0.2-1 mg/dl Direct Bilirubin 0.5 0-0.2 mg/dl Aspartate Amino Transf (AST/SGOT) 83 15-37 U/L Alanine Aminotransferase (ALT/SGPT) 50 12-78 U/L Alkaline Phosphatase 50 45-117 U/L Total Protein 5.7 6.4-8.2 gm/dl Albumin 2.8 3.4-5.0 gm/dl Triglycerides Level 161 0-150 mg/dl Cholesterol Level 103 0-200 mg/dl HDL Cholesterol 7 mg/dl LDL Cholesterol, Calculated 64 mg/dl VLDL Cholesterol, Calculated 32 mg/dl Cholesterol/HDL Ratio 14.7 Lyme Disease IgG Antibody NEG NEG Lyme Disease IgM Antibody NEG NEG Test 09/06/16 06:45 09/06/16 10:35 09/06/16 11:20 09/06/16 16:40 Range/Units Bedside Glucose 90 98 100 70-99 mg/dl Lactic Acid Level 1.5 0.4-2.0 mmol/L Total Creatine Kinase 1226 39-308 U/L Creatine Kinase MB 4.0 0.5-3.6 ng/ml Creatine Kinase MB Ratio 0.3 0-3.0 Troponin I 0.071 0-0.045 ng/ml
[2016-09-06] MEDS: METOPROLOL TARTRATE 1 MG/ML VIAL IV PRN ×2 (16:57→23:00)
[2016-09-06] MEDS: SIMVASTATIN 80 MG TAB PO SCH (19:47)
[2016-09-06 20:22] VITALS: BP 148/84; PULSE 133; TEMP 37; O2SAT 91
[2016-09-06 23:28] VITALS: BP 124/80; PULSE 137; TEMP 38; O2SAT 96
[2016-09-07] VITALS (15 sets, daily range): BP systolic 100–146; BP diastolic 59–92; PULSE 74–133; TEMP 36.2–37.1; O2SAT 93–98
[2016-09-07] MEDS ORDERED: METOPROLOL TARTRATE 1 MG/ML VIAL IV STA ×2 (01:30→18:32)
[2016-09-07] MEDS: METOPROLOL TARTRATE 1 MG/ML VIAL IV PRN (06:32)
[2016-09-07 07:00] LABS: ESTIMATED AVERAGE GLUCOSE 117 mg/dl; HA1C FLAG Normal (Normal)
[2016-09-07] MEDS: INSULIN ASPART 100 UNITS/ML 3 ML PEN SC SCH ×4 (07:00→21:00)
--- NOTE | 2016-09-07 07:39 | DIAGNOSTIC IMAGING REPORT ---
CHEST ONE VIEW PORTABLE CLINICAL HISTORY: congestion? Dyspnea COMPARISON STUDY: 09/06/2016 FINDINGS: Mild stable cardiomegaly. Prominent pulmonary vasculature suggesting mild congestive failure. Diaphragms smooth. Calcifications are sharp. IMPRESSION: Mild congestive failure Electronically signed by: Omar Romo M.D. 09/07/2016 7:37 AM Dictated Date/Time: 09/07/2016 7:37 AM
[2016-09-07 07:54] LABS: INR 4.5 (0.9-1.1); PROTHROMBIN TIME (PATIENT) 51.3 SECONDS (9.0-12.0)
[2016-09-07 08:03] LABS: HEMATOCRIT 36.5 % (42-52); MEAN CELL VOLUME 90.1 fL (80-100); MEAN CORPUSCULAR HEMOGLOBIN 30.9 pg (25-34); MEAN CORPUSCULAR HGB CONC 34.2 g/dl (32-36); PLATELET COUNT 104 K/uL (130-400); RED BLOOD COUNT 4.05 M/uL (4.7-6.1); WHITE BLOOD COUNT 5.15 K/uL (4.8-10.8)
[2016-09-07] MEDS: DOXYCYCLINE HYCLATE 100 MG CAP PO SCH (08:06)
[2016-09-07] MEDS: PIPERACILL/TAZOBAC IV 3.375 GM in DEXTROSE 5% 100ML IV SCH ×2 (08:06→16:24)
[2016-09-07] MEDS: PANTOprazole SOD 40 MG TAB PO SCH (08:06)
[2016-09-07] MEDS: LISINOPRIL 5 MG TAB PO SCH (08:07)
[2016-09-07 08:15] LABS: COMPLETE YES; EOS % 0.2 %; IG% 0.2 %; LARGE PLATELETS 1+; LYMPH % 18.6 %; LYMPH ABS # 0.96 K/uL (1.2-3.4); MONO % 4.3 %; NEUT % 76.7 %
[2016-09-07 08:25] LABS: BUN/CREATININE RATIO 7.4 (10-20); CREATININE 0.85 mg/dl (0.60-1.40); MAGNESIUM 1.9 mg/dl (1.8-2.4); PHOSPHORUS 2.2 mg/dl (2.5-4.9); POTASSIUM 3.9 mmol/L (3.5-5.1)
[2016-09-07] MEDS ORDERED: METOPROLOL SUCC 25MG EXT REL TAB PO SCH (09:00)
[2016-09-07 09:12] LABS: CALCIUM 7.9 mg/dl (8.5-10.1)
[2016-09-07] MEDS ORDERED: VANCOMYCIN TROUGH SCH (09:30)
--- NOTE | 2016-09-07 11:08 | Progress Note ---
Internal Med Progress Note Date of Service: Sep 07, 2016. Provider Documentation: SUBJECTIVE: The patient was seen and examined Feel a lot better Denies any symptoms Seems to have no more confusion OBJECTIVE: Vital Signs-as noted below Exam: General-no distress at rest Eyes-normal ENT-normal Neck-supple Lungs-clear to auscultate bilaterally Heart-Regular,no murmur Abdomen-Benign,no masses,bowel sound present Extremities-No edema Neuro-AAOx3 No focal neuro deficit Lab data as noted below. ASSESSMENT & PLAN: Possible sepsis and Likely source UTI Patient presents with having some fever at home, tachycardia. Urinalysis positive and Negative CXR -but could have Pneumonia given H/O Cough 1 week before Started on IV Zosyn, IV vancomycin and p.o. doxycycline. Blood Cultures-negative Urine Culture-3 different organisms MRSA screen negative Discontinue Vancomycin CXR negative for Pneumonia -discontinue Doxycycline Rapid atrial fibrillation. The patient is on metoprolol and digoxin at home. Received a dose of iv digoxin and iv Lopressor. Has been back on his Usual medications Acute renal failure, baseline creatinine 0.8, Presented with creatinine of 1.7 Received IVF and Renal function improved Mild elevation in troponin, most likely demand ischemia from rapid atrial fibrillation and sepsis. We will follow the serial cardiac enzymes. We will consider echo. History of aortic valve replacement, on Coumadin. INR is 3.5. Monitor INR while in Hospital History of hyperlipidemia. Hold statin for now. Elevated CPK. CPK trending down. On high dose stain may need to cut down or change to Lipitor 40mg daily.. Hypertension, currently hypotensive. Hold lisinopril and metoprolol. Will monitor the blood pressure and possible restart them in am. . DVT prophylaxis On Coumadin. Hyperglycemia we will place on insulin sliding scale and check HbA1c levels. Disposition. Close monitoring in the tele floor, full code. to be determined Start PT/OT Vital Signs: Date Time Temp Pulse Resp B/P (MAP) Pulse Ox O2 Delivery O2 Flow Rate FiO2 09/07/16 07:30 36.8 115 20 143/88 (106) 98 Room Air 09/07/16 06:32 158 09/07/16 04:31 37.1 128 22 133/89 (104) 96 Room Air 09/07/16 04:00 Room Air 09/07/16 02:02 150 09/06/16 23:59 Room Air 09/06/16 23:28 38.0 137 20 124/80 (95) 96 Room Air 09/06/16 23:00 158 09/06/16 20:22 37.0 133 20 148/84 (105) 91 Room Air 09/06/16 20:00 Room Air 09/06/16 16:57 135 117/83 09/06/16 16:00 Room Air 09/06/16 15:45 126 09/06/16 15:19 36.7 111 20 117/83 (94) 99 Room Air 09/06/16 12:00 Room Air 09/06/16 11:39 36.6 107 16 120/80 (93) 96 Room Air 09/06/16 11:34 135 128/64 Lab Results: Results Past 24 Hours Test 09/06/16 11:20 09/06/16 16:40 09/06/16 20:43 09/07/16 07:15 Range/Units Bedside Glucose 98 100 93 98 70-99 mg/dl Test 09/07/16 07:29 Range/Units White Blood Count 5.15 4.8-10.8 K/uL Red Blood Count 4.05 4.7-6.1 M/uL Hemoglobin 12.5 14.0-18.0 g/dL Hematocrit 36.5 42-52 % Mean Corpuscular Volume 90.1 80-100 fL Mean Corpuscular Hemoglobin 30.9 25-34 pg Mean Corpuscular Hemoglobin Concent 34.2 32-36 g/dl Platelet Count 104 130-400 K/uL Mean Platelet Volume 12.0 7.4-10.4 fL Neutrophils (%) (Auto) 76.7 % Lymphocytes (%) (Auto) 18.6 % Monocytes (%) (Auto) 4.3 % Eosinophils (%) (Auto) 0.2 % Basophils (%) (Auto) 0.0 % Neutrophils # (Auto) 3.95 1.4-6.5 K/uL Lymphocytes # (Auto) 0.96 1.2-3.4 K/uL Monocytes # (Auto) 0.22 0.11-0.59 K/uL Eosinophils # (Auto) 0.01 0-0.5 K/uL Basophils # (Auto) 0.00 0-0.2 K/uL RDW Standard Deviation 42.7 36.4-46.3 fL RDW Coefficient of Variation 12.9 11.5-14.5 % Immature Granulocyte % (Auto) 0.2 % Immature Granulocyte # (Auto) 0.01 0.00-0.02 K/uL Large Platelets 1+ Prothrombin Time 51.3 9.0-12.0 SECONDS Prothromb Time International Ratio 4.5 0.9-1.1 Sodium Level 143 136-145 mmol/L Potassium Level 3.9 3.5-5.1 mmol/L Chloride Level 108 98-107 mmol/L Carbon Dioxide Level 27 21-32 mmol/L Anion Gap 8.0 3-11 mmol/L Blood Urea Nitrogen 6 7-18 mg/dl Creatinine 0.85 0.60-1.40 mg/dl Est Creatinine Clear Calc Drug Dose 90.2 ml/min Estimated GFR () 103.0 Estimated GFR (Non- 88.9 BUN/Creatinine Ratio 7.4 10-20 Random Glucose 106 70-99 mg/dl Calcium Level 7.9 8.5-10.1 mg/dl Phosphorus Level 2.2 2.5-4.9 mg/dl Magnesium Level 1.9 1.8-2.4 mg/dl Total Bilirubin 1.0 0.2-1 mg/dl Direct Bilirubin 0.3 0-0.2 mg/dl Aspartate Amino Transf (AST/SGOT) 83 15-37 U/L Alanine Aminotransferase (ALT/SGPT) 54 12-78 U/L Alkaline Phosphatase 43 45-117 U/L Total Creatine Kinase 930 39-308 U/L Total Protein 5.5 6.4-8.2 gm/dl Albumin 2.7 3.4-5.0 gm/dl
[2016-09-07] MEDS: SODIUM CHLORIDE 0.9% 1000ML 1,000 ML IV SCH (15:57)
[2016-09-07] MEDS ORDERED: WARFARIN SOD 2.5 MG TAB PO SCH (16:00)
[2016-09-07] MEDS ORDERED: METOPROLOL TARTRATE 1 MG/ML VIAL IV ONE (16:20)
[2016-09-07] MEDS: DIGOXIN 0.125 MG TAB PO SCH (16:29)
[2016-09-07] MEDS ORDERED: METOPROLOL TARTRATE 25 MG TAB PO SCH (18:30)
[2016-09-07] MEDS ORDERED: DIGOXIN 0.125 MG TAB PO ONE (20:30)
[2016-09-07] MEDS: SIMVASTATIN 80 MG TAB PO SCH (20:59)
[2016-09-07] MEDS ORDERED: DILTIAZEM BOLUS / DRIP IV STA (22:23)
[2016-09-07] MEDS ORDERED: DILTIAZEM HCL INJ 125 MG in DEXTROSE 5% 100ML IV PRN (22:45)
[2016-09-07] MEDS ORDERED: DILTIAZEM HCL 5 MG/ML 5 ML VIAL IV STA (23:12)
[2016-09-08] VITALS (15 sets, daily range): BP systolic 107–130; BP diastolic 65–79; PULSE 80–131; TEMP 36.7–36.8; O2SAT 95–98
[2016-09-08] MEDS: PIPERACILL/TAZOBAC IV 3.375 GM in DEXTROSE 5% 100ML IV SCH ×4 (00:06→23:35)
[2016-09-08] MEDS: DILTIAZEM HCL INJ 125 MG in DEXTROSE 5% 100ML 100 ML IV PRN ×3 (05:55→23:53)
[2016-09-08 06:27] LABS: BASO % 1.1 %; BASO ABS # 0.06 K/uL (0-0.2); COMPLETE YES; EOS % 2.5 %; HEMATOCRIT 35.9 % (42-52); IG% 0.4 %; LYMPH % 18.5 %; LYMPH ABS # 1.05 K/uL (1.2-3.4); MEAN CELL VOLUME 88.6 fL (80-100); MEAN CORPUSCULAR HEMOGLOBIN 30.4 pg (25-34); MEAN CORPUSCULAR HGB CONC 34.3 g/dl (32-36); MEAN PLATELET VOLUME 11.4 fL (7.4-10.4); MONO % 10.6 %; NEUT % 66.9 %; PLATELET COUNT 133 K/uL (130-400); RED BLOOD COUNT 4.05 M/uL (4.7-6.1); WHITE BLOOD COUNT 5.68 K/uL (4.8-10.8)
[2016-09-08 06:47] LABS: PROTHROMBIN TIME (PATIENT) 48.3 SECONDS (9.0-12.0)
[2016-09-08 06:48] LABS: INR 4.2 (0.9-1.1)
[2016-09-08] MEDS: INSULIN ASPART 100 UNITS/ML 3 ML PEN SC SCH ×4 (07:00→20:50)
[2016-09-08 07:03] LABS: BUN/CREATININE RATIO 8.4 (10-20); CALCIUM 7.7 mg/dl (8.5-10.1); CREATININE 0.69 mg/dl (0.60-1.40); MAGNESIUM 2.2 mg/dl (1.8-2.4); POTASSIUM 3.7 mmol/L (3.5-5.1)
[2016-09-08 07:04] LABS: PHOSPHORUS 2.7 mg/dl (2.5-4.9)
[2016-09-08] MEDS: PANTOprazole SOD 40 MG TAB PO SCH (08:46)
[2016-09-08] MEDS: METOPROLOL SUCC 50MG EXT REL TAB PO SCH (08:46)
[2016-09-08] MEDS: LISINOPRIL 5 MG TAB PO SCH (08:47)
[2016-09-08] MEDS ORDERED: VANCOMYCIN TROUGH SCH (10:30)
--- NOTE | 2016-09-08 11:58 | Cardiology Consultation ---
Cardiology Consultation Date of Consultation: Sep 08, 2016 Requesting Physician: Neptali Attending Decator Operator: Swetha (Omar Burgos PA-C) History of Present Illness History of Present Illness: Mr. Barahona is a 71 year old male who is being seen at the request of Dr. Gunderson. Reason for consultation is atrial fibrillation with a rapid ventricular response. Mr. Barahona presented to the [facility] ER on 09/05/2016 with a chief complaint of lower abdominal discomfort. Additional complaints included lower back pain, intermittent fevers and diaphoresis, and a cough. Workup was felt to reveal probable urosepsis with course complicated by acute renal dysfunction, elevated CPK's, and a minimally elevated troponin. He was initially treated with IV Zosyn, Vancomycin, and oral doxycycline. One of two blood cultures obtained on 09/05/2016 is growing gram negative bacilli ( sensitivities pending). Metoprolol held on presentation secondary to hypotension. Continuous telemetry monitoring reveals a rapid ventricular response to his chronic atrial fibrillation. He has received multiple doses of IV Lopressor, IV diltiazem, and IV digoxin. Toprol XL has been resumed and increased. Mr. Barahona appears intermittently confusion. He denies chest pain or discomfort. He denies palpitations. Denies shortness of breath, cough, orthopnea , PND, or lower extremity peripheral edema. No dizziness, near syncope, or syncope. (Omar Burgos PA-C) History Past Medical and Surgical History: ASCVD. March 04, 2016 Cardiac Catheterization at [facility] revealed a normal left main, nonobstructive LAD system, nondominant RCA with an 80% proximal lesion, and a large cominant left circumflex with a 40-50% first OM lesion and an 80% ostial OM3 lesion. Repeat coronary angiography at [facility] on 01/19/2007 revealed mild nonobstructive coronary artery disease including a 25% LAD stenosis, nondominant RCA free of obstructive disease, and a dominant LCX with a 25% LCX lesion between the OM1 and OM2. Severe aortic insufficiency status post April 30, 2006 aortic valve replacement with a #21 On-X valve at [facility]. Postoperative course complicated by anemia and a large pericardial effusion requiring emergent drainage Past paroxysmal and now chronic atrial fibrillation Hypertension Dyslipidemia Family History: Positive for CAD in his father and brother. Father with an FL at 63. Brother with an FL at 63. Another brother with an FL at 56. Social History: Reformed smoker, 20 pack year history. Ongoing chronic smokeless tobacco user. No illegal drug use. . 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 (Omar Burgos PA-C) Review Of Systems A complete and accurate review of systems could not be obtained due to the patients confusion. (Omar Burgos PA-C) Allergies Coded Allergies: No Known Allergies (Verified , 12/03/11) Medications Reported Home Medications Medications Dose Route/Sig Max Daily Dose Days Date Category Dose Instructions Warfarin Sodium 5 Mg Tab 5 Mg PO 5XWK 90 09/05/16 Reported Ultram (Tramadol HCl) 50 Mg Tab 50 Mg PO DAILY PRN 09/05/16 Reported Toprol-Xl (Metoprolol Succinate) 25 Mg Tabcr 25 Mg PO DAILY 09/05/16 Reported Zestril (Lisinopril) 5 Mg Tab 5 Mg PO DAILY 09/05/16 Reported Digoxin 0.125 Mg Tab 0.125 Mg PO DAILY 09/05/16 Reported Warfarin Sodium 5 Mg Tab 2.5 Tab PO 2XWK 90 09/05/16 Reported WEDNESDAY,WEDNESDAY Nitrostat (Nitroglycerin) 0.4 Mg Sub 0.4 Mg UT PRN 12/03/11 Reported dissolve one tab under tongue prn,may repeat q 5 min x 3 doses.if no relief call md. Zocor (Simvastatin) 80 Mg Tab 80 Mg PO QPM 06/13/11 Reported Prilosec (Omeprazole) 20 Mg Capcr 20 Mg PO QAM 01/11/08 Reported (Omar Burgos PA-C) Physical Exam Vital Signs (Last 8hrs): Last 8 Hrs Date Time Temp Pulse Resp B/P (MAP) Pulse Ox O2 Delivery O2 Flow Rate FiO2 09/08/16 08:00 Room Air 09/08/16 07:34 36.7 91 16 113/66 (82) 97 Room Air 09/08/16 04:00 95 09/08/16 04:00 Room Air 09/08/16 03:46 36.7 115 20 116/65 (82) 96 Room Air General Appearance: Alert and Oriented to person and place, not to time. NAD. Head: Normocephalic Atraumatic. Eyes: PER, EOMI, conjunctiva and sclera clear Neck: Supple. No carotid bruits. No JVD. No HJD. Respiratory: Breath sounds clear to auscultation bilaterally. No w/r/r. Cardiovascular: Irregularly irregular in the 90's. Beadle mechanical valve sounds. Soft systolic murmur heard at the LLSB and apex. No diastolic murmur. No rub. PMI non displaced. Abdomen: +BS. Soft. Nontender. Extremities: No edema. No clubbing. No cyanosis. Distal pulses 2/4 bilaterally. Neuro: Appearing to be intermittently confusion. No focal deficits. Psychiatric: Normal affect. (Omar Burgos PA-C) Data Last 24 Hours Test 09/07/16 16:42 09/07/16 20:19 09/08/16 06:18 09/08/16 06:28 Bedside Glucose 100 mg/dl 102 mg/dl 81 mg/dl White Blood Count 5.68 K/uL Red Blood Count 4.05 M/uL Hemoglobin 12.3 g/dL Hematocrit 35.9 % Mean Corpuscular Volume 88.6 fL Mean Corpuscular Hemoglobin 30.4 pg Mean Corpuscular Hemoglobin Concent 34.3 g/dl Platelet Count 133 K/uL Mean Platelet Volume 11.4 fL Neutrophils (%) (Auto) 66.9 % Lymphocytes (%) (Auto) 18.5 % Monocytes (%) (Auto) 10.6 % Eosinophils (%) (Auto) 2.5 % Basophils (%) (Auto) 1.1 % Neutrophils # (Auto) 3.81 K/uL Lymphocytes # (Auto) 1.05 K/uL Monocytes # (Auto) 0.60 K/uL Eosinophils # (Auto) 0.14 K/uL Basophils # (Auto) 0.06 K/uL RDW Standard Deviation 41.8 fL RDW Coefficient of Variation 12.8 % Immature Granulocyte % (Auto) 0.4 % Immature Granulocyte # (Auto) 0.02 K/uL Prothrombin Time 48.3 SECONDS Prothromb Time International Ratio 4.2 Sodium Level 143 mmol/L Potassium Level 3.7 mmol/L Chloride Level 107 mmol/L Carbon Dioxide Level 28 mmol/L Anion Gap 8.0 mmol/L Blood Urea Nitrogen 6 mg/dl Creatinine 0.69 mg/dl Est Creatinine Clear Calc Drug Dose 110.9 ml/min Estimated GFR () 112.3 Estimated GFR (Non- 96.9 BUN/Creatinine Ratio 8.4 Random Glucose 89 mg/dl Calcium Level 7.7 mg/dl Phosphorus Level 2.7 mg/dl Magnesium Level 2.2 mg/dl Test 09/08/16 11:08 Bedside Glucose 112 mg/dl CXR's from 09/05, 09/06, and 09/07 reviewed Abdomen and Pelvix CT from 09/05 reviewed. Gallbladder ultrasound reviewed. EKG dated and timed 05-SEP-2016 @ 15:34:38: Atrial fibrillation with rapid ventricular response (167 bpm) with lateral ischemic changes. Telemetry: Continuous telemetry monitoring reveals his chronic atrial fibrillation with a rapid ventricular response. Heart rates recently coming under fair control (90-120 bpm). (Omar Burgos PA-C) Assessment & Plan Complex 71 year old male admitted with the working diagnosis of urosepsis with one of two blood cultures obtained on 09/05/2016 demonstrating gram negative bacilli. Course complicated by acute renal dysfunction, elevated CPK's, and a minimally elevated troponin. Cardiology consultation sought secondary to a rapid ventricular response of his chronic atrial fibrillation, as detailed above. Chronic atrial fibrillation, rapid ventricular response secondary to the acute illness and beta-shiloh withdrawal. Wean to discontinue diltiazem Titrate beta-shiloh therapy as needed Continue low dose digoxin Continue chronic Coumadin anticoagulation History of April 30, 2006 aortic valve replacement with a #21 On-X MECHANICAL valve. Continue chronic Coumadin anticoagulation Assess resting echocardiography. ? Need for transesophageal echocardiography. Recommend Infectious Disease Consultation Elevated troponin. Appears to be in the absence of necrosis Suspect secondary to the rhabdomyolysis, acute renal dysfunction, critically illness. Intermittent confusion Check noncontrast CT of the chest. Hyperlipidemia. Hold statin, RE: rhabdomyolysis. Recommend switching simvastatin to atorvastatin Hypertension. Follow. (Omar Burgos PA-C) Cardiology attending physician: Patient seen and examined at the bedside. Denies chest discomfort or unusual shortness of breath. No palpitations. Heart rate has improved. Average heart rate approximately 90 bpm on telemetry. He remains in atrial fibrillation which is chronic. Diltiazem infusing at 15 mg per hour. Metoprolol succinate has been titrated to 50 mg daily and he received a dose of oral digoxin this morning. No fevers. CT of the head performed without acute intracranial abnormality. Patient offers no complaints currently. PE: VSS, GEN: NAD, confused. Heart: Irregular, borderline tachycardic. 2/6 systolic ejection murmur heard best at the cardiac base. Lungs: Clear bilateral , no rales, rhonchi, or wheeze. Abdomen: No rebound or guarding. Extremities : No edema. A/P: Agree with above PAC history, physical exam, assessment and plan. 71-year- old gentleman admitted with gram-negative sepsis. Initially the presumed source was urinary, however, urine culture negative at this time. From a cardiovascular perspective patient noted to be in atrial fibrillation with rapid ventricular response with history of mechanical aortic valve replacement. Intravenous Cardizem infusing at 15 mg per hour. Metoprolol succinate titrated to 50 mg daily. Heart rate has improved. Continue oral digoxin. Intravenous diltiazem will be weaned as tolerated. Patient may require further titration of metoprolol during hospitalization. Hold Coumadin today with repeat INR in the a.m. Review resting 2-D transthoracic echo when available. Infectious disease consultation pending. Thank you for allowing me to take part in the care of the patient. Pb Posada DO, FACC (Sorin Posada DO)
--- NOTE | 2016-09-08 13:06 | DIAGNOSTIC IMAGING REPORT ---
CT OF THE HEAD WITHOUT CONTRAST CLINICAL HISTORY: Intermittent confusion. COMPARISON STUDY: Head CT June 13, 2011. CT DOSE: 638.56 mGycm TECHNIQUE: Helical axial images of the head were obtained without IV contrast. Automated exposure control was utilized for the study. FINDINGS: No acute intracranial hemorrhage, midline shift or mass effect is present. Ventricular system is normal for age. Basilar cisterns are patent. There are no extra-axial collections. There are no findings to suggest acute dural sinus thrombosis or acute territorial infarct. White matter hypodensity suggests small vessel disease. There are no significant calvarial abnormalities. Mastoid air cells are clear. There is minimal mucosal thickening of the ethmoid sinuses. IMPRESSION: No acute intracranial findings. Electronically signed by: Vipin Barnard M.D. 09/08/2016 1:05 PM Dictated Date/Time: 09/08/2016 1:02 PM
--- NOTE | 2016-09-08 14:54 | Progress Note ---
Progress Note Date of Service Sep 08, 2016. Progress Note ID Consult Dictated #[id number] A/P: 1. GNR sepsis, likely secondary to uti 2. Fever - resolved -Continue zosyn for now -Repeat blood cultures -Await echo report -Final abx recs based on ID/sensitivities gnr -Will follow, thank you
--- NOTE | 2016-09-08 15:04 | Progress Note ---
Internal Med Progress Note Date of Service: Sep 08, 2016. Provider Documentation: SUBJECTIVE: The patient was seen and examined Feel a lot better but having Rapid Ventricular response Denies any symptoms Seems to have no more confusion Wants to go home OBJECTIVE: Vital Signs-as noted below Exam: General-no distress at rest Eyes-normal ENT-normal Neck-supple Lungs-clear to auscultate bilaterally Heart-Regular,no murmur Abdomen-Benign,no masses,bowel sound present Extremities-No edema Neuro-AAOx3 No focal neuro deficit Lab data as noted below. ASSESSMENT & PLAN: Possible sepsis and Likely source UTI -Gm Negative Bacteremia Patient presents with having some fever at home, tachycardia. Urinalysis positive and Negative CXR -but could have Pneumonia given H/O Cough 1 week before Started on IV Zosyn, IV vancomycin and p.o. doxycycline. Blood Cultures-Gm negative Bacilli in 1 bottle -sensitivity pending Urine Culture-3 different organisms MRSA screen negative Discontinue Vancomycin CXR negative for Pneumonia -discontinue Doxycycline Continue with Zosyn for now Doubt Infective Endocarditis ID consulted A Fib with Rapid atrial fibrillation. The patient is on metoprolol and digoxin at home. Received a dose of iv digoxin and iv Lopressor. Has been back on his Usual medications Required to start IV Cardizem last night Cardiology consult-appreciate input Acute renal failure, baseline creatinine 0.8, Presented with creatinine of 1.7 Received IVF and Renal function improved Mild elevation in troponin, most likely demand ischemia from rapid atrial fibrillation and sepsis. We will follow the serial cardiac enzymes. We will consider echo. History of aortic valve replacement, on Coumadin. INR is 3.5. Monitor INR while in Hospital History of hyperlipidemia. Hold statin for now. Elevated CPK. CPK trending down. On high dose stain may need to cut down or change to Lipitor 40mg daily.. Hypertension, currently hypotensive. Hold lisinopril and metoprolol. Will monitor the blood pressure and possible restart them in am. . DVT prophylaxis On Coumadin. Hyperglycemia we will place on insulin sliding scale and check HbA1c levels. Disposition. Close monitoring in the tele floor, full code. to be determined Start PT/OT Vital Signs: Date Time Temp Pulse Resp B/P (MAP) Pulse Ox O2 Delivery O2 Flow Rate FiO2 09/08/16 12:00 Room Air 09/08/16 11:47 36.8 91 20 112/72 (85) 97 Room Air 09/08/16 08:00 Room Air 09/08/16 07:34 36.7 91 16 113/66 (82) 97 Room Air 09/08/16 04:00 95 09/08/16 04:00 Room Air 09/08/16 03:46 36.7 115 20 116/65 (82) 96 Room Air 09/08/16 01:48 127 130/73 (92) 97 Room Air 09/08/16 00:45 131 20 125/75 (92) 97 Room Air 09/08/16 00:30 107/78 (88) 09/08/16 00:01 36.8 127 24 123/79 (94) 97 Room Air 09/08/16 00:00 98 Room Air 09/07/16 23:45 146/92 (110) 09/07/16 23:32 36.9 130 22 100/66 (77) 93 Room Air 09/07/16 23:17 113/62 (79) 09/07/16 23:01 125/75 (92) 09/07/16 22:59 133 121/70 (87) 09/07/16 22:18 98 121/59 (79) 09/07/16 20:59 101 09/07/16 20:00 98 Room Air 09/07/16 19:52 36.7 127 22 115/70 (85) 98 Room Air 09/07/16 18:51 102 132/82 09/07/16 17:07 94 114/70 09/07/16 17:00 74 114/70 (85) 09/07/16 16:29 102 09/07/16 16:29 102 09/07/16 16:00 97 Room Air 09/07/16 15:42 36.4 110 20 143/90 (107) 97 Room Air Lab Results: Results Past 24 Hours Test 09/07/16 16:42 09/07/16 20:19 09/08/16 06:18 09/08/16 06:28 Range/Units Bedside Glucose 100 102 81 70-99 mg/dl White Blood Count 5.68 4.8-10.8 K/uL Red Blood Count 4.05 4.7-6.1 M/uL Hemoglobin 12.3 14.0-18.0 g/dL Hematocrit 35.9 42-52 % Mean Corpuscular Volume 88.6 80-100 fL Mean Corpuscular Hemoglobin 30.4 25-34 pg Mean Corpuscular Hemoglobin Concent 34.3 32-36 g/dl Platelet Count 133 130-400 K/uL Mean Platelet Volume 11.4 7.4-10.4 fL Neutrophils (%) (Auto) 66.9 % Lymphocytes (%) (Auto) 18.5 % Monocytes (%) (Auto) 10.6 % Eosinophils (%) (Auto) 2.5 % Basophils (%) (Auto) 1.1 % Neutrophils # (Auto) 3.81 1.4-6.5 K/uL Lymphocytes # (Auto) 1.05 1.2-3.4 K/uL Monocytes # (Auto) 0.60 0.11-0.59 K/uL Eosinophils # (Auto) 0.14 0-0.5 K/uL Basophils # (Auto) 0.06 0-0.2 K/uL RDW Standard Deviation 41.8 36.4-46.3 fL RDW Coefficient of Variation 12.8 11.5-14.5 % Immature Granulocyte % (Auto) 0.4 % Immature Granulocyte # (Auto) 0.02 0.00-0.02 K/uL Prothrombin Time 48.3 9.0-12.0 SECONDS Prothromb Time International Ratio 4.2 0.9-1.1 Sodium Level 143 136-145 mmol/L Potassium Level 3.7 3.5-5.1 mmol/L Chloride Level 107 98-107 mmol/L Carbon Dioxide Level 28 21-32 mmol/L Anion Gap 8.0 3-11 mmol/L Blood Urea Nitrogen 6 7-18 mg/dl Creatinine 0.69 0.60-1.40 mg/dl Est Creatinine Clear Calc Drug Dose 110.9 ml/min Estimated GFR () 112.3 Estimated GFR (Non- 96.9 BUN/Creatinine Ratio 8.4 10-20 Random Glucose 89 70-99 mg/dl Calcium Level 7.7 8.5-10.1 mg/dl Phosphorus Level 2.7 2.5-4.9 mg/dl Magnesium Level 2.2 1.8-2.4 mg/dl Test 09/08/16 11:08 Range/Units Bedside Glucose 112 70-99 mg/dl
--- NOTE | 2016-09-08 15:11 | ECHOCARDIOGRAM REPORT ---
*NOTICE TO RECEIVING DEMOCRAT AGENCY This information is strictly Confidential and protected under [place] law. [place] law prohibits you from making any further disclosure of this information unless further disclosure is expressly permitted by the written consent of the person to whom it pertains or is authorized by law. A general authorization for the release of medical or other information is not sufficient for this purpose. Hospital accepts no responsibility if the information is made available to any other person, INCLUDING THE PATIENT. Interpretation Summary * Name: PEARL RIVERA Study Date: 09/08/2016 02:02 PM BP: 112/72 mmHg * Patient Location: C.2T\S\E222\S\1 HR: 101 * : 1945 (M/d/yyyy) Gender: Male Height: 67 in * Age: 71 yrs Ethnicity: [place] Weight: 201 lb * Ordering Physician: Omar Burgos * Referring Physician: Self, Referred * Performed By: Ami Roman * * Reason For Study: VALVULAR HEART DISEASE, SEPSIS. AVR * BSA: 2.0 m2 * The study was technically adequate. * -- Conclusions -- * Ejection Fraction = 55-60%. * There is mild concentric left ventricular hypertrophy. * There is a mechanical aortic valve. * The gradient is normal for this prosthetic aortic valve. * Doppler evidence of regurgitation is probably normal for this prosthetic aortic valve. * There is mild mitral regurgitation. * There is mild tricuspid regurgitation. * Pulse wave TDI of the anterior and posterior mitral annulas demonstrates abnormal LV relaxation Procedure Details * Left Ventricle The left ventricle is normal in size. There is no thrombus. There is mild concentric left ventricular hypertrophy. Ejection Fraction = 55-60%. Septal motion is consistent with post-operative state. * Right Ventricle The right ventricular cavity size is normal (basal dimension <4.2 cm in right ventricular apical 4-chamber view). The right ventricular systolic function is normal as assessed by tricuspid annular plane systolic excursion (TAPSE) (normal >1.5 cm). * Atria The left atrium is moderately dilated. The right atrium is mild to moderately dilated. * Mitral Valve There is moderate mitral annular calcification. The posterior mitral valve leaflet is moderately calcified. There is no mitral valve stenosis. There is mild mitral regurgitation. * Tricuspid Valve The tricuspid valve anatomy is normal. There is no tricuspid stenosis. There is mild tricuspid regurgitation. Doppler findings do not suggest pulmonary hypertension. * Aortic Valve There is a mechanical aortic valve. The gradient is normal for this prosthetic aortic valve. Doppler evidence of regurgitation is probably normal for this prosthetic aortic valve. * Pulmonic Valve The pulmonary valve is inadequately visualized, but the Doppler data is adequate for interpretation. There is no pulmonic valvular stenosis. There is no pulmonic valvular regurgitation. * Great Vessels The aortic root is normal size. * Pericardium/Pleural There is no pericardial effusion. * Great Vessels Normal inferior vena cava size and collapsability with sniff indicates a normal right atrial pressure of 3 mmHg * Left Ventricular Diastolic Function Pulse wave TDI of the anterior and posterior mitral annulas demonstrates abnormal LV relaxation * * MMode 2D Measurements and Calculations * IVSd 1.4 cm * IVSs 1.8 cm * * LVIDd 5.5 cm * LVIDs 3.8 cm * LVPWd 1.3 cm * LVPWs 1.9 cm * * IVS/LVPW 1.1 * FS 30.1 % * EDV(Teich) 147.2 ml * ESV(Teich) 63.7 ml * EF(Teich) 56.7 % * * EDV(cubed) 166.0 ml * ESV(cubed) 56.8 ml * EF(cubed) 65.8 % * % IVS thick 29.0 % * % LVPW thick 44.8 % * * LV mass(C)d 328.2 grams * LV mass(C)dI 162.0 grams/m\S\2 * LV mass(C)s 317.6 grams * LV mass(C)sI 156.7 grams/m\S\2 * * CO(Teich) 6.1 l/min * CI(Teich) 3.0 l/min/m\S\2 * SV(Teich) 83.5 ml * SI(Teich) 41.2 ml/m\S\2 * CO(cubed) 8.0 l/min * CI(cubed) 3.9 l/min/m\S\2 * SV(cubed) 109.2 ml * SI(cubed) 53.9 ml/m\S\2 * * ACS 1.4 cm * * asc Aorta Diam 3.4 cm * * LVAd ap4 34.6 cm\S\2 * LVLd ap4 8.7 cm * EDV(MOD-sp4) 113.0 ml * LVAs ap4 20.5 cm\S\2 * LVLs ap4 7.5 cm * ESV(MOD-sp4) 47.1 ml * EF(MOD-sp4) 58.3 % * * LVAd ap2 34.4 cm\S\2 * LVLd ap2 8.8 cm * EDV(MOD-sp2) 113.0 ml * LVAs ap2 19.0 cm\S\2 * LVLs ap2 6.6 cm * ESV(MOD-sp2) 46.8 ml * EF(MOD-sp2) 58.6 % * * CO(MOD-sp4) 4.8 l/min * CI(MOD-sp4) 2.4 l/min/m\S\2 * SV(MOD-sp4) 65.9 ml * SI(MOD-sp4) 32.5 ml/m\S\2 * * CO(MOD-sp2) 4.8 l/min * CI(MOD-sp2) 2.4 l/min/m\S\2 * SV(MOD-sp2) 66.2 ml * SI(MOD-sp2) 32.7 ml/m\S\2 * * * Doppler Measurements and Calculations * MV E max miguel 153.0 cm/sec * * MV P1/2t max miguel 171.6 cm/sec * MV P1/2t 94.9 msec * MVA(P1/2t) 2.3 cm\S\2 * MV dec slope 529.6 cm/sec\S\2 * MV dec time 0.27 sec * * Ao V2 max 257.2 cm/sec * Ao max PG 26.5 mmHg * Ao max PG (full) 16.3 mmHg * * LV V1 max PG 10.2 mmHg * * LV V1 max 159.3 cm/sec * * MR max miguel 443.0 cm/sec * MR max PG 78.5 mmHg * * PA V2 max 72.8 cm/sec * PA max PG 2.1 mmHg * * TR max miguel 259.3 cm/sec * *
--- NOTE | 2016-09-08 15:24 | INFECT. DISEASE CONSULTATION ---
DATE OF CONSULTATION: 09/08/2016 DATE OF CONSULTATION: 09/08/2016. REQUESTING PHYSICIAN: Dr. Soto. HISTORY OF PRESENT ILLNESS: This is a 71-year-old gentleman who was admitted after he was found to be hypotensive. For the past week, he has had off and on flu-like symptoms per the H&P. On my examination today, he is complaining of suprapubic pain. He states this is essentially unchanged since admission to the hospital. He did admit to some subjective fevers at home and has had intermittent temperature elevations since admission to the hospital. As part of his initial workup, blood cultures were obtained and are growing gram negative rods which are yet to be identified. He remains on broad spectrum antibiotics. He does have a history of aortic valve replacement and he did have an echocardiogram just prior to my examination. Results are not available for review. He is tolerating antibiotics well. He states that he was eating well at home but his appetite is decreased since being admitted to the hospital. He has also had periods of confusion and continues to ask me what time he would be going to surgery later today. All remaining review of systems are negative except or as noted. ALLERGIES: He has no known drug allergies. PAST MEDICAL HISTORY: Significant for Afib, tendinitis, hyperlipidemia. PAST SURGICAL HISTORY: Significant for aortic valve replacement and left shoulder surgery. FAMILY HISTORY: Noncontributory. SOCIAL HISTORY: Significant for history of tobacco use. He quit in 1995. He occasionally drinks alcohol. He denies any drug use. He is and lives with family. CURRENT MEDICATIONS: Include Toprol-XL, Lopressor, Diltiazem, lisinopril, digoxin, Protonix, Zosyn, insulin, acetaminophen, Maalox, milk of magnesia, Zofran, Nitrostat, Ultram. PHYSICAL EXAMINATION: VITAL SIGNS: He has been afebrile for the past 24 hours, but did have an isolated fever of 38 degrees on the 11th, pulse 91, respiratory rate is 20, blood pressure is 112/72, oxygen saturation is 97% on room air. GENERAL: He is awake and alert. He is in no acute distress. HEAD, EYES, EARS, NOSE, AND THROAT: Mucous membranes are moist. Extraocular muscles are intact. HEART: Without murmur. LUNGS: Clear bilaterally with poor inspiratory effort. ABDOMEN: Soft and nondistended. There is minimal suprapubic tenderness. EXTREMITIES: There is no lower extremity edema. SKIN: Without rash. LABORATORY STUDIES: CBC today reveals a white blood cell count 5.6, hemoglobin 12.3 and platelets of 133. Chemistry panel today reveals a sodium of 143, potassium 3.7, chloride 107, bicarbonate 28, BUN 6, creatinine 0.6, glucose is 112. Most recent LFTs showed mild AST elevation of 83, ALT was normal at 54. CK has been elevated as high as 1722. Troponins were initially elevated as well. Total bilirubin was 2 on admission. This has been improving and is now back to normal. Again, blood cultures from the 10th 1/2 sets are growing gram negative rods which has yet to be identified. Urine culture from the 10th had more than 3 organisms found. Urinalysis done in the ER had greater than 30 WBCs and 4+ bacteria. Lyme titer was negative. Review of imaging chest x-ray done in the Emergency Room was unremarkable. CAT scan of the abdomen and pelvis did show gallbladder thickening and bilateral renal stones, the largest measuring 6 mm on the last. There were gallstones within the gallbladder. Gallbladder ultrasound was obtained and did not show any evidence of cholecystitis. A head CT was done today and was negative. Again, echocardiogram was done today and results are pending. ASSESSMENT AND PLAN: 1. Gram negative septicemia, likely secondary to urinary tract infection. 2. Transaminitis. Could be secondary to cholesterol medications and/or underlying infection. At this time, he will be continued on Zosyn as he does appear to have some clinical improvement. Repeat blood cultures will be obtained. I will await the final results from his blood cultures and adjust antibiotics as necessary. Thank you for this consultation.
[2016-09-08] MEDS: DIGOXIN 0.125 MG TAB PO SCH (16:16)
[2016-09-08] MEDS: METOPROLOL TARTRATE 1 MG/ML VIAL IV PRN (17:17)
[2016-09-09] VITALS (9 sets, daily range): BP systolic 103–138; BP diastolic 67–81; PULSE 97–117; TEMP 36.4–37.1; O2SAT 94–97
[2016-09-09 06:06] LABS: HEMATOCRIT 34.4 % (42-52); MEAN CELL VOLUME 88.9 fL (80-100); MEAN CORPUSCULAR HEMOGLOBIN 30.2 pg (25-34); PLATELET COUNT 176 K/uL (130-400); RED BLOOD COUNT 3.87 M/uL (4.7-6.1); WHITE BLOOD COUNT 5.85 K/uL (4.8-10.8)
[2016-09-09 06:23] LABS: INR 3.4 (0.9-1.1); PROTHROMBIN TIME (PATIENT) 38.7 SECONDS (9.0-12.0)
[2016-09-09 06:42] LABS: BUN/CREATININE RATIO 5.2 (10-20); CALCIUM 7.7 mg/dl (8.5-10.1); CREATININE 0.72 mg/dl (0.60-1.40); MAGNESIUM 2.2 mg/dl (1.8-2.4); POTASSIUM 3.6 mmol/L (3.5-5.1)
[2016-09-09] MEDS: INSULIN ASPART 100 UNITS/ML 3 ML PEN SC SCH ×2 (07:00→11:00)
[2016-09-09] MEDS: PIPERACILL/TAZOBAC IV 3.375 GM in DEXTROSE 5% 100ML IV SCH ×2 (08:29→15:37)
[2016-09-09] MEDS: METOPROLOL SUCC 50MG EXT REL TAB PO SCH (08:30)
[2016-09-09] MEDS: LISINOPRIL 5 MG TAB PO SCH (08:30)
[2016-09-09] MEDS: PANTOprazole SOD 40 MG TAB PO SCH (08:30)
--- NOTE | 2016-09-09 10:21 | Cardiology Follow-Up ---
Subjective General Date of Service: Sep 09, 2016. Chief Complaint: atrial fibrillation Pt evaluation today including: conversation w/ patient, conversation w/ family (), physical exam, chart review, lab review, review of studies, review of inpatient medication list History of Present Illness Patient seen and examined. at bedside. Denies chest pain, palpitations, dyspnea, orthopnea, PND, or edema. No fevers or chills. Remains on IV cardizem Telemetry: Atrial fibrillation with a rapid ventricular response. No marked bradycardia or pauses. September 08, 2016 TTE Interpretation Summary ([facility], Dr. Posada): Ejection Fraction = 55-60%. There is mild concentric left ventricular hypertrophy. There is a mechanical aortic valve. The gradient is normal for this prosthetic aortic valve. Doppler evidence of regurgitation is probably normal for this prosthetic aortic valve. There is mild mitral regurgitation. There is mild tricuspid regurgitation. Pulse wave TDI of the anterior and posterior mitral annulus demonstrates abnormal LV relaxation. Allergies Coded Allergies: No Known Allergies (Verified , 12/03/11) Social History Smoking Status: Former Smoker Hx Tobacco Use In Past Year?: Yes Hx Alcohol Use - Type And Amou: Yes (BEER AND TERESA BAUTISTA OCCASIONALLY) Hx Substance Use - Type And Am: No Problem List Medical Problems: (1) ANTWAN (acute kidney injury) Status: Acute (2) Atrial fibrillation with RVR Status: Acute (3) Pyelonephritis Status: Acute (4) Rhabdomyolysis Status: Acute (5) Sepsis Status: Acute Review of Systems Respiratory: No cough, No wheezing, No shortness of breath, No dyspnea on exertion, No dyspnea at rest, No hemoptysis Cardiac: No chest pain, No orthopnea, No PND, No edema, No claudication, No palpitations Physical Exam Vital Signs Last Vital Signs Documentation Date Time Temp Pulse Resp B/P (MAP) Pulse Ox O2 Delivery O2 Flow Rate FiO2 09/09/16 07:36 36.7 97 18 130/70 (90) 97 Room Air Physical Exam Constitutional: General Apperance: heathly-appearing Level of Distress: NAD Psychiatric: Mental Status: active & alert Orientation: to time, to place, to person Memory: remote memory normal, recent memory abnormal Head: normocephalic, atraumatic Eyes: Pupils: PERRLA Neck: pertinent finding (Normal JVP. No HJR) Lungs: Respiratory effort: no dyspnea Auscultation: breath sounds normal, no wheezing, no rales/crackles, no rhonchi Cardiovascular: Heart Auscultation: no rubs, tachycardia, II/ ROXIE, irregular rate rhythm Peripheral Pulses: Carotid Pulse: normal on the left, normal on the right Dorsalis Pedis Pulse: normal on the left, normal on the right Abdomen: Bowel Sounds: normal Inspection & Palpation: soft, non-distended Extremities: no cyanosis, no edema, no clubbing Neurologic: Cranial Nerves: grossly intact Assessment and Plan Assessment and Plan Complex 71 year old male admitted with the working diagnosis of urosepsis. One of the two blood cultures obtained on 09/05/2016 have now demonstrated pansensitive E coli. Course complicated by acute renal dysfunction, elevated CPK 's, and a minimally elevated troponin. Cardiology consultation sought secondary to a rapid ventricular response of his chronic atrial fibrillation. Chronic atrial fibrillation, rapid ventricular response secondary to the acute illness and beta-shiloh withdrawal. Titrate metoprolol to 50 mg in the AM and 25 mg in the PM Wean to discontinue diltiazem Continue low dose digoxin Continue chronic Coumadin anticoagulation History of April 30, 2006 aortic valve replacement with a #21 [employer] valve. Continue chronic Coumadin anticoagulation Elevated troponin. Appears to be in the absence of necrosis Suspect secondary to the rhabdomyolysis, acute renal dysfunction, critically illness. No further evaluation planned during this hospitalization. Intermittent confusion Noncontrast CT of the head OK As per Hospitalist. Hyperlipidemia. Hold statin, RE: rhabdomyolysis. Recommend switching simvastatin to atorvastatin when CPK's have normalized. Hypertension. Follow. Cardiology attending physician: Patient seen and examined at the bedside. Denies chest discomfort or unusual shortness of breath. No palpitations. Heart rate is borderline elevated. Cardizem infusion continues at 15 mg per hour. No fevers or chills. Tolerating medications. Offers no complaints this time. PE: VSS, GEN: NAD, confused. Heart: Irregular, borderline tachycardic. 2/6 systolic ejection murmur heard best at the cardiac base. Lungs: Clear bilateral , no rales, rhonchi, or wheeze. Abdomen: No rebound or guarding. Extremities : No edema. A/P: Agree with above PAC history, physical exam, assessment and plan. Titrate metoprolol to 50 mg in the morning, 25 mg in the evening. Continue to monitor telemetry. Wean diltiazem infusion as tolerated. Restart warfarin today. Will continue to follow during hospitalization. Pb Posada DO, [facility] Laboratory Results Last 24 Hours Test 09/08/16 11:08 09/08/16 16:13 09/08/16 19:53 09/09/16 06:00 Bedside Glucose 112 mg/dl 110 mg/dl 120 mg/dl White Blood Count 5.85 K/uL Red Blood Count 3.87 M/uL Hemoglobin 11.7 g/dL Hematocrit 34.4 % Mean Corpuscular Volume 88.9 fL Mean Corpuscular Hemoglobin 30.2 pg Mean Corpuscular Hemoglobin Concent 34.0 g/dl RDW Standard Deviation 41.3 fL RDW Coefficient of Variation 12.9 % Platelet Count 176 K/uL Mean Platelet Volume 11.0 fL Prothrombin Time 38.7 SECONDS Prothromb Time International Ratio 3.4 Sodium Level 144 mmol/L Potassium Level 3.6 mmol/L Chloride Level 110 mmol/L Carbon Dioxide Level 29 mmol/L Anion Gap 5.0 mmol/L Blood Urea Nitrogen 4 mg/dl Creatinine 0.72 mg/dl Est Creatinine Clear Calc Drug Dose 104.8 ml/min Estimated GFR () 110.3 Estimated GFR (Non- 95.2 BUN/Creatinine Ratio 5.2 Random Glucose 94 mg/dl Calcium Level 7.7 mg/dl Magnesium Level 2.2 mg/dl Test 09/09/16 06:50 Bedside Glucose 92 mg/dl
--- NOTE | 2016-09-09 10:34 | Progress Note ---
Internal Med Progress Note Date of Service: Sep 09, 2016. Provider Documentation: SUBJECTIVE: The patient was seen and examined Feel a lot better but having Rapid Ventricular response Denies any symptoms Seems to have no more confusion Getting anxious to get out of the hospital OBJECTIVE: Vital Signs-as noted below Exam: General-no distress at rest but anxious Eyes-normal ENT-normal Neck-supple Lungs-clear to auscultate bilaterally Heart-Regular,no murmur Abdomen-Benign,no masses,bowel sound present Extremities-No edema Neuro-AAOx3 No focal neuro deficit Lab data as noted below. ASSESSMENT & PLAN: Possible sepsis and Likely source UTI -Gm Negative Bacteremia Patient presents with having some fever at home, tachycardia. Urinalysis positive and Negative CXR -but could have Pneumonia given H/O Cough 1 week before Started on IV Zosyn, IV vancomycin and p.o. doxycycline. Blood Cultures-Gm negative Bacilli in 1 bottle -sensitivity pending Urine Culture-3 different organisms MRSA screen negative Discontinue Vancomycin CXR negative for Pneumonia -discontinue Doxycycline Continue with Zosyn for now Doubt Infective Endocarditis ID consulted-appreciate input ,Repeat Blood culture and awit for further recommendation A Fib with Rapid atrial fibrillation. The patient is on metoprolol and digoxin at home. Received a dose of iv digoxin and iv Lopressor. Has been back on his Usual medications Required to start IV Cardizem last night Cardiology consult-appreciate input BB increased and wean off Cardizem Acute renal failure, baseline creatinine 0.8, Presented with creatinine of 1.7 Received IVF and Renal function improved Mild elevation in troponin, most likely demand ischemia from rapid atrial fibrillation and sepsis. We will follow the serial cardiac enzymes. We will consider echo. History of aortic valve replacement, on Coumadin. INR is 3.5. Monitor INR while in Hospital History of hyperlipidemia. Hold statin for now. Elevated CPK. CPK trending down. On high dose stain may need to cut down or change to Lipitor 40mg daily.. Hypertension, currently hypotensive. Hold lisinopril and metoprolol. Will monitor the blood pressure and possible restart them in am. . DVT prophylaxis On Coumadin. Hyperglycemia we will place on insulin sliding scale and check HbA1c levels. Disposition. Close monitoring in the tele floor, full code. to be determined Start PT/OT Likely home tomorrow Vital Signs: Date Time Temp Pulse Resp B/P (MAP) Pulse Ox O2 Delivery O2 Flow Rate FiO2 09/09/16 07:36 36.7 97 18 130/70 (90) 97 Room Air 09/09/16 04:00 94 Room Air 09/09/16 03:53 36.6 100 20 103/67 (79) 94 Room Air 09/08/16 23:59 95 Room Air 09/08/16 23:48 36.8 80 21 114/73 (87) 95 Room Air 09/08/16 20:11 36.7 84 16 112/69 (83) 97 Room Air 09/08/16 20:00 Room Air 09/08/16 20:00 96 Room Air 09/08/16 17:17 84 148/80 09/08/16 16:16 85 09/08/16 16:00 96 Room Air 09/08/16 15:28 36.8 99 20 113/76 (88) 96 Room Air 09/08/16 12:00 Room Air 09/08/16 11:47 36.8 91 20 112/72 (85) 97 Room Air Lab Results: Results Past 24 Hours Test 09/08/16 11:08 09/08/16 16:13 09/08/16 19:53 09/09/16 06:00 Range/Units Bedside Glucose 112 110 120 70-99 mg/dl White Blood Count 5.85 4.8-10.8 K/uL Red Blood Count 3.87 4.7-6.1 M/uL Hemoglobin 11.7 14.0-18.0 g/dL Hematocrit 34.4 42-52 % Mean Corpuscular Volume 88.9 80-100 fL Mean Corpuscular Hemoglobin 30.2 25-34 pg Mean Corpuscular Hemoglobin Concent 34.0 32-36 g/dl RDW Standard Deviation 41.3 36.4-46.3 fL RDW Coefficient of Variation 12.9 11.5-14.5 % Platelet Count 176 130-400 K/uL Mean Platelet Volume 11.0 7.4-10.4 fL Prothrombin Time 38.7 9.0-12.0 SECONDS Prothromb Time International Ratio 3.4 0.9-1.1 Sodium Level 144 136-145 mmol/L Potassium Level 3.6 3.5-5.1 mmol/L Chloride Level 110 98-107 mmol/L Carbon Dioxide Level 29 21-32 mmol/L Anion Gap 5.0 3-11 mmol/L Blood Urea Nitrogen 4 7-18 mg/dl Creatinine 0.72 0.60-1.40 mg/dl Est Creatinine Clear Calc Drug Dose 104.8 ml/min Estimated GFR () 110.3 Estimated GFR (Non- 95.2 BUN/Creatinine Ratio 5.2 10-20 Random Glucose 94 70-99 mg/dl Calcium Level 7.7 8.5-10.1 mg/dl Magnesium Level 2.2 1.8-2.4 mg/dl Test 09/09/16 06:50 Range/Units Bedside Glucose 92 70-99 mg/dl Microbiology Results 09/08/16 Blood Culture, Received Pending 09/08/16 Blood Culture, Received Pending
[2016-09-09] MEDS ORDERED: NURSING VERBAL MED ORDER ONE (15:15)
--- NOTE | 2016-09-09 15:37 | Progress Note ---
Subjective Date of Service: Sep 09, 2016. Subjective Pt evaluation today including: conversation w/ patient, physical exam, chart review, lab review pt seen in follow up, doing well. asking to go home. echo negative for veg. blood culture with price sensitive e. coli, repeat pending. no abd pain, resolved. denies f/c. no gu complaints. eating well. no cough, cp. tolerating abx. remains on zosyn. afebrile. wbc nml. all remaining ros reviewed and are negative. Problem List Medical Problems: (1) ANTWAN (acute kidney injury) Status: Acute (2) Atrial fibrillation with RVR Status: Acute (3) Pyelonephritis Status: Acute (4) Rhabdomyolysis Status: Acute (5) Sepsis Status: Acute Objective Vital Signs Date Time Temp Pulse Resp B/P (MAP) Pulse Ox O2 Delivery O2 Flow Rate FiO2 09/09/16 15:33 37.1 113 18 129/69 (89) 96 Room Air 09/09/16 12:00 Room Air 09/09/16 11:44 36.6 101 18 131/72 (91) 95 Room Air 09/09/16 08:00 Room Air 09/09/16 07:36 36.7 97 18 130/70 (90) 97 Room Air 09/09/16 04:00 94 Room Air 09/09/16 03:53 36.6 100 20 103/67 (79) 94 Room Air 09/08/16 23:59 95 Room Air 09/08/16 23:48 36.8 80 21 114/73 (87) 95 Room Air 09/08/16 20:11 36.7 84 16 112/69 (83) 97 Room Air 09/08/16 20:00 Room Air 09/08/16 20:00 96 Room Air 09/08/16 17:17 84 148/80 09/08/16 16:16 85 09/08/16 16:00 96 Room Air Physical Exam General Appearance: WD/WN, no apparent distress Eyes: normal inspection, EOMI Neck: supple Respiratory/Chest: lungs clear, normal breath sounds, no respiratory distress Cardiovascular: regular rate, rhythm, no edema Abdomen: non tender, soft Extremities: non-tender, normal inspection, no pedal edema Neurologic/Psychiatric: alert, oriented x 3 Skin: normal color Laboratory Results Item Value Date Time Blood Culture - Preliminary Resulted 09/05/16 1545 Blood NO GROWTH TO DATE. Blood Culture - Preliminary Resulted 09/05/16 1600 Blood Escherichia Coli Last 24 Hours Test 09/08/16 16:13 09/08/16 19:53 09/09/16 06:00 09/09/16 06:50 Bedside Glucose 110 mg/dl 120 mg/dl 92 mg/dl White Blood Count 5.85 K/uL Red Blood Count 3.87 M/uL Hemoglobin 11.7 g/dL Hematocrit 34.4 % Mean Corpuscular Volume 88.9 fL Mean Corpuscular Hemoglobin 30.2 pg Mean Corpuscular Hemoglobin Concent 34.0 g/dl RDW Standard Deviation 41.3 fL RDW Coefficient of Variation 12.9 % Platelet Count 176 K/uL Mean Platelet Volume 11.0 fL Prothrombin Time 38.7 SECONDS Prothromb Time International Ratio 3.4 Sodium Level 144 mmol/L Potassium Level 3.6 mmol/L Chloride Level 110 mmol/L Carbon Dioxide Level 29 mmol/L Anion Gap 5.0 mmol/L Blood Urea Nitrogen 4 mg/dl Creatinine 0.72 mg/dl Est Creatinine Clear Calc Drug Dose 104.8 ml/min Estimated GFR () 110.3 Estimated GFR (Non- 95.2 BUN/Creatinine Ratio 5.2 Random Glucose 94 mg/dl Calcium Level 7.7 mg/dl Magnesium Level 2.2 mg/dl Assessment and Plan (1) Gram negative septicemia Assessment & Plan: culture with price sensitive e coli, can narrow to po keflex 500mg po tid to complete course, would give 14 days. ok for d/c when medically stable.
[2016-09-09] MEDS: DIGOXIN 0.125 MG TAB PO SCH (15:38)
[2016-09-09] MEDS: WARFARIN SOD 5 MG TAB PO SCH (16:51)
[2016-09-09] MEDS: METOPROLOL TARTRATE 1 MG/ML VIAL IV PRN (17:33)
[2016-09-09] MEDS: DILTIAZEM HCL INJ 125 MG in DEXTROSE 5% 100ML 100 ML IV PRN (19:42)
[2016-09-09] MEDS ORDERED: METOPROLOL SUCC 25MG EXT REL TAB PO SCH (21:00)
[2016-09-10] MEDS: PIPERACILL/TAZOBAC IV 3.375 GM in DEXTROSE 5% 100ML IV SCH ×2 (00:05→08:03)
[2016-09-10 00:11] VITALS: BP 126/71; PULSE 94; TEMP 36.8; O2SAT 96
[2016-09-10] MEDS: DILTIAZEM HCL INJ 125 MG in DEXTROSE 5% 100ML 100 ML IV PRN (03:55)
[2016-09-10 04:10] VITALS: BP 102/65; PULSE 91; TEMP 36.8; O2SAT 95
[2016-09-10 06:22] LABS: PROTHROMBIN TIME (PATIENT) 44.1 SECONDS (9.0-12.0)
[2016-09-10 06:30] LABS: INR 3.9 (0.9-1.1)
[2016-09-10 07:32] VITALS: BP 117/76; PULSE 100; TEMP 36.8; O2SAT 94
[2016-09-10] MEDS: METOPROLOL SUCC 50MG EXT REL TAB PO SCH ×2 (08:03→20:28)
[2016-09-10] MEDS: LISINOPRIL 5 MG TAB PO SCH (08:03)
[2016-09-10] MEDS: PANTOprazole SOD 40 MG TAB PO SCH (08:03)
--- NOTE | 2016-09-10 09:59 | Cardiology Follow-Up ---
Subjective General Date of Service: Sep 10, 2016. Chief Complaint: atrial fibrillation Pt evaluation today including: conversation w/ patient, conversation w/ family , physical exam, chart review, lab review, review of studies, review of inpatient medication list History of Present Illness Patient seen and examined. at bedside. Anxious to return home. Denies chest pain, palpitations, dyspnea, orthopnea, PND, or edema. No fevers or chills. Remains on IV cardizem Telemetry: Chronic atrial fibrillation, intermittently with an asymptomatic rapid ventricular response. No marked bradycardia or pauses. September 08, 2016 TTE Interpretation Summary ([facility], Dr. Posada): Ejection Fraction = 55-60%. There is mild concentric left ventricular hypertrophy. There is a mechanical aortic valve. The gradient is normal for this prosthetic aortic valve. Doppler evidence of regurgitation is probably normal for this prosthetic aortic valve. There is mild mitral regurgitation. There is mild tricuspid regurgitation. Pulse wave TDI of the anterior and posterior mitral annulus demonstrates abnormal LV relaxation. Allergies Coded Allergies: No Known Allergies (Verified , 12/03/11) Social History Smoking Status: Former Smoker Hx Tobacco Use In Past Year?: Yes Hx Alcohol Use - Type And Amou: Yes (BEER AND TERESA BAUTISTA OCCASIONALLY) Hx Substance Use - Type And Am: No Problem List Medical Problems: (1) ANTWAN (acute kidney injury) Status: Acute (2) Atrial fibrillation with RVR Status: Acute (3) Pyelonephritis Status: Acute (4) Rhabdomyolysis Status: Acute (5) Sepsis Status: Acute Review of Systems Respiratory: No cough, No sputum, No wheezing, No shortness of breath, No dyspnea on exertion, No dyspnea at rest, No hemoptysis Cardiac: No chest pain, No orthopnea, No PND, No edema, No claudication, No palpitations Physical Exam Vital Signs Last Vital Signs Documentation Date Time Temp Pulse Resp B/P (MAP) Pulse Ox O2 Delivery O2 Flow Rate FiO2 09/10/16 08:00 Room Air 09/10/16 07:32 36.8 100 16 117/76 (90) 94 Physical Exam Constitutional: General Apperance: heathly-appearing Level of Distress: NAD Psychiatric: Mental Status: active & alert Orientation: to time, to place, to person Head: normocephalic, atraumatic Eyes: Pupils: PERRLA Neck: pertinent finding (Normal JVP. No HJR) Lungs: Respiratory effort: no dyspnea Auscultation: breath sounds normal, no wheezing, no rales/crackles, no rhonchi Cardiovascular: Heart Auscultation: no rubs, II/ ROXIE, irregular rate rhythm Peripheral Pulses: Carotid Pulse: normal on the left, normal on the right Dorsalis Pedis Pulse: normal on the left, normal on the right Abdomen: Bowel Sounds: normal Inspection & Palpation: soft, non-distended Extremities: no cyanosis, no edema, no clubbing Neurologic: Cranial Nerves: grossly intact Assessment and Plan Assessment and Plan Complex 71 year old male admitted with the working diagnosis of urosepsis. One of the two blood cultures obtained on 09/05/2016 with pansensitive E coli. Course complicated by acute renal dysfunction, elevated CPK's, and a minimally elevated troponin. Cardiology consultation sought secondary to a rapid ventricular response of his chronic atrial fibrillation. Chronic atrial fibrillation, intermittent rapid ventricular response, asymptomatic. Titrate metoprolol succinate to 50 mg twice a day. Wean to discontinue diltiazem Continue low dose digoxin Continue chronic Coumadin anticoagulation History of April 30, 2006 aortic valve replacement with a #21 On-X MECHANICAL valve. Continue chronic Coumadin anticoagulation Elevated troponin. Suspect secondary to the rhabdomyolysis, acute renal dysfunction, critically illness. No further evaluation planned during this hospitalization. Hyperlipidemia. Statin held secondary to rhabdomyolysis. Recommend switching simvastatin to atorvastatin when CPK's have normalized. Hypertension. Follow. Outpatient Cardiology follow-up to be arranged, typically followed by Dr. Joe Luna DO, [facility]. Cardiology attending physician: Patient seen and examined at the bedside. Denies chest discomfort or unusual shortness of breath. Family present today. No palpitations. Heart rate controlled overnight with borderline elevated rates this a.m. Cardizem infusing at 15 mg per hour. No fevers or chills. Tolerating medications. Offers no complaints this time. PE: VSS, GEN: NAD, confused. Heart: Irregular, borderline tachycardic. 2/6 systolic ejection murmur heard best at the cardiac base. Lungs: Clear bilateral , no rales, rhonchi, or wheeze. Abdomen: No rebound or guarding. Extremities : No edema. A/P: Agree with above PAC history, physical exam, assessment and plan. Titrate metoprolol to 50 mg twice a day. Continue digoxin. Wean diltiazem infusion as tolerated. Pb Posada DO, [facility] Laboratory Results Last 24 Hours Test 09/09/16 11:30 09/10/16 05:45 Bedside Glucose 94 mg/dl Prothrombin Time 44.1 SECONDS Prothromb Time International Ratio 3.9
[2016-09-10] MEDS: CEPHALEXIN MONOHYDRATE 500 MG CAP PO SCH ×2 (10:59→16:33)
--- NOTE | 2016-09-10 13:33 | Progress Note ---
Internal Med Progress Note Date of Service: Sep 10, 2016. Provider Documentation: SUBJECTIVE: The patient was seen and examined Feel a lot better but having Rapid Ventricular response Denies any symptoms even with occasional tachyarrhythmia Seems to have no more confusion Getting anxious to get out of the hospital OBJECTIVE: Vital Signs-as noted below Exam: General-no distress at rest but anxious Eyes-normal ENT-normal Neck-supple Lungs-clear to auscultate bilaterally Heart-Regular,no murmur Abdomen-Benign,no masses,bowel sound present Extremities-No edema Neuro-AAOx3 No focal neuro deficit Lab data as noted below. ASSESSMENT & PLAN: Possible sepsis and Likely source UTI -Gm Negative Bacteremia Patient presents with having some fever at home, tachycardia. Urinalysis positive and Negative CXR -but could have Pneumonia given H/O Cough 1 week before Started on IV Zosyn, IV vancomycin and p.o. doxycycline. Blood Cultures-Gm negative Bacilli in 1 bottle -sensitivity pending Urine Culture-3 different organisms MRSA screen negative Discontinue Vancomycin CXR negative for Pneumonia -discontinue Doxycycline Continue with Zosyn for now Doubt Infective Endocarditis ID consulted-appreciate input ,Repeat Blood culture and await for further recommendation Started on Keflex 500mg TID for a total of 14 days A Fib with Rapid atrial fibrillation. The patient is on metoprolol and digoxin at home. Received a dose of iv digoxin and iv Lopressor. Has been back on his Usual medications Required to start IV Cardizem last night Cardiology consult-appreciate input BB increased and wean off Cardizem Wean off Cardizem drip Likely to discharge today /tomorrow Acute renal failure, baseline creatinine 0.8, Presented with creatinine of 1.7 Received IVF and Renal function improved Mild elevation in troponin, most likely demand ischemia from rapid atrial fibrillation and sepsis. We will follow the serial cardiac enzymes. We will consider echo. History of aortic valve replacement, on Coumadin. INR is 3.9 on 09/10/16 Monitor INR while in Hospital History of hyperlipidemia. Hold statin for now. Elevated CPK. CPK trending down. On high dose stain may need to cut down or change to Lipitor 40mg daily.. Hypertension, currently hypotensive. Hold lisinopril and metoprolol. Will monitor the blood pressure and possible restart them in am. . DVT prophylaxis On Coumadin. Hyperglycemia we will place on insulin sliding scale and check HbA1c levels. Disposition. Close monitoring in the tele floor, full code. to be determined Start PT/OT Likely home today/tomorrow Vital Signs: Date Time Temp Pulse Resp B/P (MAP) Pulse Ox O2 Delivery O2 Flow Rate FiO2 09/10/16 12:00 Room Air 09/10/16 08:00 Room Air 09/10/16 07:32 36.8 100 16 117/76 (90) 94 Room Air 09/10/16 04:10 36.8 91 16 102/65 (77) 95 Room Air 09/10/16 04:00 Room Air 09/10/16 00:11 36.8 94 20 126/71 (89) 96 Room Air 09/09/16 23:50 Room Air 09/09/16 20:00 96 Room Air 09/09/16 19:56 36.4 117 20 138/81 (100) 96 Room Air 09/09/16 17:33 98 130/80 09/09/16 17:26 98 130/80 (97) 09/09/16 16:00 96 Room Air 09/09/16 15:38 84 09/09/16 15:33 37.1 113 18 129/69 (89) 96 Room Air Lab Results: Results Past 24 Hours Test 09/10/16 05:45 Range/Units Prothrombin Time 44.1 9.0-12.0 SECONDS Prothromb Time International Ratio 3.9 0.9-1.1
[2016-09-10] MEDS: WARFARIN SOD 5 MG TAB PO SCH (16:00)
[2016-09-10 16:18] VITALS: BP 131/88; PULSE 94; TEMP 36.7; O2SAT 95
[2016-09-10] MEDS: DIGOXIN 0.125 MG TAB PO SCH (16:34)
[2016-09-10 19:13] VITALS: BP 119/80; PULSE 110; TEMP 36.7; O2SAT 95
[2016-09-10 23:45] VITALS: BP 130/67; PULSE 120; TEMP 36.8; O2SAT 97
[2016-09-11 03:28] VITALS: BP 115/80; PULSE 100; TEMP 36.8; O2SAT 95
[2016-09-11 06:38] LABS: PROTHROMBIN TIME (PATIENT) 51.5 SECONDS (9.0-12.0)
[2016-09-11 06:41] LABS: INR 4.5 (0.9-1.1)
[2016-09-11 07:37] VITALS: BP 125/88; PULSE 113; TEMP 36.8; O2SAT 94
[2016-09-11] MEDS: CEPHALEXIN MONOHYDRATE 500 MG CAP PO SCH ×2 (07:54→11:13)
[2016-09-11] MEDS: LISINOPRIL 5 MG TAB PO SCH (07:55)
[2016-09-11] MEDS: PANTOprazole SOD 40 MG TAB PO SCH (07:55)
[2016-09-11] MEDS: METOPROLOL SUCC 50MG EXT REL TAB PO SCH (07:55)
--- NOTE | 2016-09-11 09:52 | Cardiology Follow-Up ---
Subjective General Date of Service: Sep 11, 2016. Chief Complaint: atrial fibrillation Pt evaluation today including: conversation w/ patient, conversation w/ family , physical exam, chart review, lab review, review of studies, review of inpatient medication list History of Present Illness Patient seen and examined. at bedside. Anxious to return home. Denies chest pain, palpitations, dyspnea, orthopnea, PND, or edema. No fevers or chills. Off IV Cardizem. Resting heart rates remain elevated during the day, acceptably controlled at night while on Toprol XL 50 mg twice a day and digoxin 125 mcg/day Telemetry: Chronic atrial fibrillation, currently with an asymptomatic rapid ventricular response. No marked bradycardia or pauses. September 08, 2016 TTE Interpretation Summary ([facility], Dr. Posada): Ejection Fraction = 55-60%. There is mild concentric left ventricular hypertrophy. There is a mechanical aortic valve. The gradient is normal for this prosthetic aortic valve. Doppler evidence of regurgitation is probably normal for this prosthetic aortic valve. There is mild mitral regurgitation. There is mild tricuspid regurgitation. Pulse wave TDI of the anterior and posterior mitral annulus demonstrates abnormal LV relaxation. Allergies Coded Allergies: No Known Allergies (Verified , 12/03/11) Social History Smoking Status: Former Smoker Hx Tobacco Use In Past Year?: Yes Hx Alcohol Use - Type And Amou: Yes (BEER AND TERESA BAUTISTA OCCASIONALLY) Hx Substance Use - Type And Am: No Problem List Medical Problems: (1) ANTWAN (acute kidney injury) Status: Acute (2) Atrial fibrillation with RVR Status: Acute (3) Pyelonephritis Status: Acute (4) Rhabdomyolysis Status: Acute (5) Sepsis Status: Acute Physical Exam Vital Signs Last Vital Signs Documentation Date Time Temp Pulse Resp B/P (MAP) Pulse Ox O2 Delivery O2 Flow Rate FiO2 09/11/16 07:37 36.8 113 18 125/88 (100) 94 Room Air Physical Exam Constitutional: General Apperance: heathly-appearing Level of Distress: NAD Psychiatric: Mental Status: active & alert Orientation: to time, to place, to person Head: normocephalic, atraumatic Eyes: Pupils: PERRLA Neck: pertinent finding (Normal JVP. No HJR) Lungs: Respiratory effort: no dyspnea Auscultation: breath sounds normal, no wheezing, no rales/crackles, no rhonchi Cardiovascular: Heart Auscultation: no rubs, tachycardia, II/ ROXIE, irregular rate rhythm Peripheral Pulses: Carotid Pulse: normal on the left, normal on the right Dorsalis Pedis Pulse: normal on the left, normal on the right Abdomen: Bowel Sounds: normal Inspection & Palpation: soft, non-distended Extremities: no cyanosis, no edema, no clubbing Neurologic: Cranial Nerves: grossly intact Assessment and Plan Assessment and Plan Complex 71 year old male admitted with the working diagnosis of urosepsis. One of the two blood cultures obtained on 09/05/2016 with pansensitive E coli. Course complicated by acute renal dysfunction, elevated CPK's, and a minimally elevated troponin. Cardiology consultation sought secondary to a rapid ventricular response of his chronic atrial fibrillation. Chronic atrial fibrillation, intermittent rapid ventricular response, asymptomatic. Titrate metoprolol succinate to 100 mg in the AM and 50 mg in the PM. Continue low dose digoxin Continue chronic Coumadin anticoagulation Status post April 30, 2006 aortic valve replacement with a #21 On-X MECHANICAL valve. Continue chronic Coumadin anticoagulation Elevated troponin. Suspect secondary to the rhabdomyolysis, acute renal dysfunction, critically illness. No further evaluation planned during this hospitalization. Hyperlipidemia. Statin held secondary to rhabdomyolysis. Recommend switching simvastatin to atorvastatin when CPK's have normalized. Hypertension. Follow. Dr. Gonzalez is covering the service over the weekend. Please call if any questions or concerns. Outpatient Cardiology follow-up to be arranged, typically followed by Dr. Joe Luna DO, [facility]. Patient seen and examined, agree with above. Will need blood cultures after completion of antibiotics. Fidencio Gonzalez MD Laboratory Results Last 24 Hours Test 09/11/16 05:56 Prothrombin Time 51.5 SECONDS Prothromb Time International Ratio 4.5
[2016-09-11] MEDS ORDERED: METOPROLOL SUCC 50MG EXT REL TAB PO ONE (10:15)
--- NOTE | 2016-09-11 10:23 | Progress Note ---
Internal Med Progress Note Date of Service: Sep 11, 2016. Provider Documentation: SUBJECTIVE: The patient was seen and examined Feel a lot better but having Rapid Ventricular response Denies any symptoms even with occasional tachyarrhythmia Seems to have no more confusion Likely to be discharged today OBJECTIVE: Vital Signs-as noted below Exam: General-no distress at rest but anxious Eyes-normal ENT-normal Neck-supple Lungs-clear to auscultate bilaterally Heart-Regular,no murmur Abdomen-Benign,no masses,bowel sound present Extremities-No edema Neuro-AAOx3 No focal neuro deficit Lab data as noted below. ASSESSMENT & PLAN: Possible sepsis and Likely source UTI -Gm Negative Bacteremia Patient presents with having some fever at home, tachycardia. Urinalysis positive and Negative CXR -but could have Pneumonia given H/O Cough 1 week before Started on IV Zosyn, IV vancomycin and p.o. doxycycline. Blood Cultures-Gm negative Bacilli in 1 bottle -sensitivity pending Urine Culture-3 different organisms MRSA screen negative Discontinue Vancomycin CXR negative for Pneumonia -discontinue Doxycycline Continue with Zosyn for now Doubt Infective Endocarditis ID consulted-appreciate input ,Repeat Blood culture and await for further recommendation Started on Keflex 500mg TID for a total of 14 days A Fib with Rapid atrial fibrillation. The patient is on metoprolol and digoxin at home. Received a dose of iv digoxin and iv Lopressor. Has been back on his Usual medications Required to start IV Cardizem last night Cardiology consult-appreciate input BB increased and wean off Cardizem Wean off Cardizem drip Likely to discharge today /tomorrow BB dose has been increased further Discharge this afternoon if Heart rate remains stable Acute renal failure, baseline creatinine 0.8, Presented with creatinine of 1.7 Received IVF and Renal function improved Mild elevation in troponin, most likely demand ischemia from rapid atrial fibrillation and sepsis. We will follow the serial cardiac enzymes. We will consider echo. History of aortic valve replacement, on Coumadin. INR is 3.9 on 09/10/16 Monitor INR while in Hospital Increased ti 4.9 -will hold Coumadin for today and decrease the dose History of hyperlipidemia. Hold statin for now. Elevated CPK. CPK trending down. On high dose stain may need to cut down or change to Lipitor 40mg daily.. Hypertension, currently hypotensive. Hold lisinopril and metoprolol. Will monitor the blood pressure and possible restart them in am. . DVT prophylaxis On Coumadin. Hyperglycemia we will place on insulin sliding scale and check HbA1c levels. Disposition. Close monitoring in the tele floor, full code. to be determined Start PT/OT Likely home today Vital Signs: Date Time Temp Pulse Resp B/P (MAP) Pulse Ox O2 Delivery O2 Flow Rate FiO2 09/11/16 07:37 36.8 113 18 125/88 (100) 94 Room Air 09/11/16 04:00 Room Air 09/11/16 03:28 36.8 100 20 115/80 (92) 95 Room Air 09/10/16 23:59 Room Air 09/10/16 23:45 36.8 120 20 130/67 (88) 97 Room Air 09/10/16 20:00 Room Air 09/10/16 19:13 36.7 110 18 119/80 (93) 95 Room Air 09/10/16 16:34 94 09/10/16 16:18 36.7 94 20 131/88 (102) 95 Room Air 09/10/16 16:00 Room Air 09/10/16 12:00 Room Air Lab Results: Results Past 24 Hours Test 09/11/16 05:56 Range/Units Prothrombin Time 51.5 9.0-12.0 SECONDS Prothromb Time International Ratio 4.5 0.9-1.1
[2016-09-11 11:29] VITALS: BP 118/71; PULSE 109; TEMP 36.6; O2SAT 96
[2016-09-11] MEDS ORDERED: KFL500 PO (14:24)
[2016-09-11] MEDS ORDERED: LCTX PO (14:24)
[2016-09-11] MEDS ORDERED: TPRSR50 PO ×2 (14:24)
[2016-09-11] MEDS ORDERED: ATOR-24 PO (14:24)
--- NOTE | 2016-09-11 14:26 | Discharge Instructions ---
Discharge Instructions Date of Service Sep 11, 2016. Admission Reason for Admission: Sepsis Discharge Discharge Diagnosis / Problem: AF with RVR,UTI with E Coli Bacteremia Discharge Goals Goal(s): Prevent Disease Progression Activity Recommendations Activity Limitations: resume your previous activity . Instructions / Follow-Up Instructions / Follow-Up DR East on 09/15/16 at 8:25 AM ( Dr Beck is away).Please make an appointment with Dr Luna in 2 weeks Current Hospital Diet Patient's current hospital diet: AHA Diet (Heart Healthy) Discharge Diet Recommended Diet: AHA Diet (Heart Healthy) Pending Studies Studies pending at discharge: no Laboratory Results Hemoglobin A1c Test 09/06/16 05:50 Range/Units Estimated Average Glucose 117 mg/dl Hemoglobin A1c 5.7 H 4.5-5.6 % Lipid Panel Test 09/06/16 05:50 Range/Units Triglycerides Level 161 H 0-150 mg/dl Cholesterol Level 103 0-200 mg/dl HDL Cholesterol 7 mg/dl Cholesterol/HDL Ratio 14.7 LDL Cholesterol, Calculated 64 mg/dl Medical Emergencies . Who to Call and When: Medical Emergencies: If at any time you feel your situation is an emergency, please call 911 immediately. . Non-Emergent Contact Non-Emergency issues call your: Primary Care Provider . Past History Medical & Surgical History: (1) Pyelonephritis (2) Rhabdomyolysis (3) ANTWAN (acute kidney injury) (4) Atrial fibrillation with RVR (5) Gram negative septicemia . "Provider Documentation" section prepared by Smith Gunderson. . VTE Core Measure Inpt VTE Proph given/why not?: Warfarin (Coumadin)
[2016-09-11 14:37] VITALS: BP 118/71; PULSE 109; TEMP 36.6; O2SAT 96
[2016-09-11] MEDS ORDERED: METOPROLOL SUCC 50MG EXT REL TAB PO SCH (21:00)
--- NOTE | 2016-09-12 08:14 | Discharge Summary ---
Discharge Summary Date of Service Sep 12, 2016. Discharge Summary Admission Date: Sep 05, 2016 at 17:52 Discharge Date: Sep 11, 2016 Discharge Disposition: Home Principal Diagnosis: AF with RVR,UTI with E Coli Bacteremia Secondary Diagnoses/Problems: Please see H&P and Hospital Progress note Consultations: Cardiology and ID Medication Reconciliation New Medications: Atorvastatin (Lipitor) 40 Mg Tab 1 TAB PO DAILY for 30 Days, #30 TAB 5 Refills Lactobacillus Acidophilus (Lactinex) Tab 2 TAB PO BID, #30 TAB Cephalexin Monohydrate (Cephalexin) 500 Mg Cap 500 MG PO TIDM for 7 Days, #21 CAP Metoprolol Succinate (Metoprolol Succinate ER) 50 Mg Tabcr 100 MG PO QAM for 30 Days, #30 Metoprolol Succinate (Metoprolol Succinate ER) 50 Mg Tabcr 50 MG PO QPM for 30 Days, #30 Continued Medications: Digoxin (Digoxin) 0.125 Mg Tab 0.125 MG PO DAILY Lisinopril (Zestril) 5 Mg Tab 5 MG PO DAILY, TAB Nitroglycerin (Nitrostat) 0.4 Mg Sub 0.4 MG UT PRN, SUB dissolve one tab under tongue prn,may repeat q 5 min x 3 doses.if no relief call md. Omeprazole (Prilosec) 20 Mg Capcr 20 MG PO QAM, 0 Refills Tramadol (Ultram) 50 Mg Tab 50 MG PO DAILY PRN for Pain, TAB Warfarin Sodium (Warfarin Sodium) 5 Mg Tab 2.5 TAB PO 2XWK for 90 Days, TAB 3 Refills WEDNESDAY,WEDNESDAY Warfarin Sodium (Warfarin Sodium) 5 Mg Tab 5 MG PO 5XWK for 90 Days, TAB 3 Refills Discontinued Medications: Metoprolol Succ (Toprol Xl) (Toprol-Xl) 25 Mg Tabcr 25 MG PO DAILY, #30 TAB Simvastatin (Zocor) 80 Mg Tab 80 MG PO QPM Admission Information HPI (per Admitting provider): DATE OF ADMISSION: 09/05/2016 CHIEF COMPLAINT: Not feeling well. HISTORY OF PRESENT ILLNESS: A 71-year-old male with past medical history significant for atrial fibrillation status post aortic valve replacement on Coumadin,history of left shoulder tendinitis, hyperlipidemia, who presents with not feeling well and found to be hypotensive. The patient states since 1 week ago, he had cold-like symptoms, went to [facility], was told he is suffering from cold and was not prescribed any medications, but he continued to have a lot of cough and he has a lot of nausea, vomited a couple of times and had diarrhea for 1.5 day and he is not eating much since last week and also has sweating and had some temperatures at home. Generally not feeling good and came to the ER today and found to be hypotensive. He had iv fluid bolus and currently blood pressure is improving.He was in rapid AFib which is also improve currently. Resting and talking comfortably. Denies any headaches, no blurred vision, no neck pain, no chest pain, no abdominal pain, no leg swelling, no rash. ALLERGIES: No known drug allergies. PAST MEDICAL HISTORY: As mentioned above. PAST SURGICAL HISTORY: No past surgical history. MEDICATIONS: The patient is on Toprol-XL 25 mg p.o. daily, digoxin 125 mcg p.o. daily, lisinopril 5 mg p.o. daily, hydrocodone/acetaminophen 5 mg one tablet p.o. q. 6 hours p.r.n. pain, multivitamins 1 tablet p.o. daily, cyclobenzaprine 10 mg p.o. b.i.d. p.r.n., Coumadin as directed, simvastatin 80 mg p.o. daily, omeprazole 20 mg p.o. daily. FAMILY HISTORY: Significant for sister has diabetes. Brother has AZ at age of 63. Another brother of [place] at age of 56. Father of [place] at age of 63. SOCIAL HISTORY: Former smoker, quit in 1995. Alcohol occasional. No drug use. . REVIEW OF SYMPTOMS: As per HPI. Rest of review of symptoms is negative. PHYSICAL EXAMINATION: GENERAL: The patient is of moderate build, not in distress. VITAL SIGNS: Temperature 36.3, pulse in 120s, respiratory rate 20, blood pressure when he came in was 64/48, now 90/65, oxygen 95% room air. HEENT: No pallor, no icterus. Pupils equal, round, and reactive to light. NECK: No JVD, no neck masses, no carotid bruits. CARDIOVASCULAR: S1, S2 heard. Irregular tachycardia. No murmur. RESPIRATORY: Clear to auscultation bilaterally. No wheezing, no crackles, no accessory muscle use. ABDOMEN: Soft, bowel sounds present. Nontender. No distention. CENTRAL NERVOUS SYSTEM: Cranial nerves II-XII are grossly intact. Nonfocal. EXTREMITIES: No edema, no erythema. LABORATORIES: Sodium 138, potassium 3.7, chloride 102, bicarb 25, BUN 19, creatinine 1.7, serum glucose 202, calcium 8.9, phosphorus 1.4, magnesium 2, AST 99, ALT 57, alkaline phosphatase 68, total creatinine kinase 1722, troponin I 0.08. BNP 5000. TSH 3.2, lipase 86. Free T4 1.15. Random cortisol 62. Urinalysis positive for leukocyte esterase, and positive for nitrite. WBC 8, hemoglobin 16.8, hematocrit 47.2, platelets 132. ESR 31. IMAGING: Chest x-ray: No acute process seen. CT of the abdomen and pelvis shows bilateral nephrolithiasis, No hydronephrosis, mild bladder wall thickening.Cholelithiasis. There is no evidence of acute cholecystitis, no bowel obstruction. EKG shows AFib with rapid ventricular response with a rate of 167, some ST-T wave abnormalities, T-wave inversions in anterior leads. ASSESSMENT AND PLAN: This is a 71-year-old male who presents with possible sepsis. 1. Possible sepsis, patient presents with having some fever at home, tachycardia. Urinalysis positive, having cough for some time, but chest x-ray was unremarkable, and also has nausea and vomiting and CT abdomen and pelvis shows some gallstones, but no acute cholecystitis, but bladder wall thickening shown and urinalysis positive for urinary tract infection. Source of infection could be urinary tract infection, and possible pneumonia. We will place him on IV Zosyn, IV vancomycin and p.o. doxycycline. Follow his cultures. Aggressive IV fluids. Lactic acid is 2.9, will repeat the lactic acid in 6 hours and monitor his hemodynamics.Close monitoring in tele floor. 2. Rapid atrial fibrillation. The patient is on metoprolol and digoxin at home. We will hold the metoprolol as patinet is hypotensive mostly in sepsis. We will . If patient does not improve with fluid resuscitation and antibiotics we will give IV digoxin and consider consulting cardiology in the a.m. 3. Acute renal failure, baseline creatinine 0.8, Presented with creatinine of 1.7 secondary to above, on IV fluids. We will follow the labs in a.m. 4. Hypophosphatemia. We will replace and follow the labs. 5 Mild elevation in troponin, most likely demand ischemia from rapid atrial fibrillation and sepsis. We will follow the serial cardiac enzymes. We will consider echo. 6. History of aortic valve replacement, on Coumadin. INR is 2.9. We will follow the PT/INR. 7. History of hyperlipidemia. Hold statin for now. Elevated CPK. We will follow the labs. 8. Hypertension, currently hypotensive. Holding the lisinopril and metoprolol. We will monitor the blood pressure. 9 DVT prophylaxis On Coumadin. 10. Hyperglycemia we will place on insulin sliding scale and check HbA1c levels. 11. Disposition. Close monitoring in the tele floor, full code. Hospital Course Possible sepsis and Likely source UTI -Gm Negative Bacteremia Patient presents with having some fever at home, tachycardia. Urinalysis positive and Negative CXR -but could have Pneumonia given H/O Cough 1 week before Started on IV Zosyn, IV vancomycin and p.o. doxycycline. Blood Cultures-Gm negative Bacilli in 1 bottle -sensitivity pending Urine Culture-3 different organisms MRSA screen negative Discontinue Vancomycin CXR negative for Pneumonia -discontinue Doxycycline Continue with Zosyn for now Doubt Infective Endocarditis ID consulted-appreciate input ,Repeat Blood culture and await for further recommendation Started on Keflex 500mg TID for a total of 14 days A Fib with Rapid atrial fibrillation. The patient is on metoprolol and digoxin at home. Received a dose of iv digoxin and iv Lopressor. Has been back on his Usual medications Required to start IV Cardizem last night Cardiology consult-appreciate input BB increased and wean off Cardizem Wean off Cardizem drip Likely to discharge today /tomorrow BB dose has been increased further Discharge this afternoon if Heart rate remains stable Acute renal failure, baseline creatinine 0.8, Presented with creatinine of 1.7 Received IVF and Renal function improved Mild elevation in troponin, most likely demand ischemia from rapid atrial fibrillation and sepsis. We will follow the serial cardiac enzymes. We will consider echo. History of aortic valve replacement, on Coumadin. INR is 3.9 on 09/10/16 Monitor INR while in Hospital Increased ti 4.9 -will hold Coumadin for today and decrease the dose History of hyperlipidemia. Hold statin for now. Elevated CPK. CPK trending down. On high dose stain may need to cut down or change to Lipitor 40mg daily.. Hypertension, currently hypotensive. Hold lisinopril and metoprolol. Will monitor the blood pressure and possible restart them in am. . DVT prophylaxis On Coumadin. Hyperglycemia we will place on insulin sliding scale and check HbA1c levels. Disposition. Close monitoring in the tele floor, full code. to be determined Start PT/OT Likely home today Total time spent on discharge = 35 minutes This includes examination of the patient, discharge planning, medication reconciliation, and communication with other providers. Discharge Instructions Date of Service Sep 11, 2016. Admission Reason for Admission: Sepsis Discharge Discharge Diagnosis / Problem: AF with RVR,UTI with E Coli Bacteremia Discharge Goals Goal(s): Prevent Disease Progression Activity Recommendations Activity Limitations: resume your previous activity . Instructions / Follow-Up Instructions / Follow-Up DR East on 09/15/16 at 8:25 AM ( Dr Beck is away).Please make an appointment with Dr Luna in 2 weeks Current Hospital Diet Patient's current hospital diet: AHA Diet (Heart Healthy) Discharge Diet Recommended Diet: AHA Diet (Heart Healthy) Pending Studies Studies pending at discharge: no Laboratory Results Hemoglobin A1c Test 09/06/16 05:50 Range/Units Estimated Average Glucose 117 mg/dl Hemoglobin A1c 5.7 H 4.5-5.6 % Lipid Panel Test 09/06/16 05:50 Range/Units Triglycerides Level 161 H 0-150 mg/dl Cholesterol Level 103 0-200 mg/dl HDL Cholesterol 7 mg/dl Cholesterol/HDL Ratio 14.7 LDL Cholesterol, Calculated 64 mg/dl Medical Emergencies . Who to Call and When: Medical Emergencies: If at any time you feel your situation is an emergency, please call 911 immediately. . Non-Emergent Contact Non-Emergency issues call your: Primary Care Provider . Past History Medical & Surgical History: (1) Pyelonephritis (2) Rhabdomyolysis (3) ANTWAN (acute kidney injury) (4) Atrial fibrillation with RVR (5) Gram negative septicemia . "Provider Documentation" section prepared by Smith Gunderson. . VTE Core Measure Inpt VTE Proph given/why not?: Warfarin (Coumadin) <Electronically signed by Smith Gunderson M.D.> Additional Copies To Omar Beck M.D.
[2016-09-12] MEDS ORDERED: METOPROLOL SUCC 50MG EXT REL TAB PO SCH (09:00)
== END 2016-09-11 15:15 | disposition home or self-care (01) | DRG 872 ==
LOC: C.EDB 15:17 → C.2T 17:52 → ENRESERV 18:09
PROVIDERS: ADMIT Internal Medicine; ATTEND Internal Medicine
DX: A41.9 Sepsis, unspecified organism (principal); N39.0 Urinary tract infection, site not specified; N17.9 Acute kidney failure, unspecified; I24.8 Other forms of acute ischemic heart disease; B96.20 Unspecified Escherichia coli [E. coli] as the cause of diseases classified elsewhere; I48.2 Chronic atrial fibrillation; I08.1 Rheumatic disorders of both mitral and tricuspid valves; Z95.2 Presence of prosthetic heart valve; Z79.01 Long term (current) use of anticoagulants; Z79.899 Other long term (current) drug therapy; Z87.891 Personal history of nicotine dependence; Z83.3 Family history of diabetes mellitus; Z82.49 Family history of ischemic heart disease and other diseases of the circulatory system; E83.39 Other disorders of phosphorus metabolism; R73.9 Hyperglycemia, unspecified; E78.5 Hyperlipidemia, unspecified

== ENCOUNTER 2021-04-09 11:47 | Inpatient (IN) ==
[2021-04-09] MEDS ORDERED: SODIUM CHLORIDE 0.9% 1000ML 1,000 ML IV ONE ×2 (12:05→14:41)
[2021-04-09] MEDS ORDERED: ACETAMINOPHEN 1,000 MG/100 ML VIAL IV STA (12:05)
--- NOTE | 2021-04-09 12:17 | Emergency Department Note ---
Impression & Plan Atrial fibrillation with RVR, UTI (urinary tract infection), Confusion ED Provider Note NAME: PEARL RIVERA AGE: 75 SEX: M ARRIVES VIA: Ambulance INFORMANT: Patient, daughter ED PROVIDER(S): Carlos Alberto Monique MD CHIEF COMPLAINT: Weakness, confusion, decrease oral intake PLAN: Disposition: Admit MEDICAL DECISION MAKING: The patient is a pleasant 75-year-old gentleman with a past medical history of hypertension, hyperlipidemia, GERD, atrial fibrillation on Coumadin who presents to the emergency department from home for evaluation of concern for UTI with confusion on behalf of the patient's daughter. Patient daughter reports that he has not been feeling well and not eating or drinking much and not taking his medications. She reports he was seen at the [facility] last week and his INR was elevated and he was instructed to hold his Coumadin and have it rechecked. She is unaware of any cough, congestion. She reports that he does have some mild confusion normally with some undiagnosed dementia but his confusion is worse over the past few days and he has been weaker staying mostly in bed. On arrival, the patient is no distress, afebrile with heart rate in the 150s in atrial fibrillation with vital signs otherwise stable. He appears clinically dry. He is alert to self and place. EKG demonstrates A. fib with RVR in the 150s. ST and T wave abnormalities are noted likely rate related. Chest x-ray with nonspecific interstitial prom inence. Question of pulmonary edema on CT of the abdomen pelvis however the patient has no respiratory symptoms and has O2 saturation of 98% and greater on room air. There is evidence of cystitis. CT of the head was negative for acute process. WBC, H/H and platelets within normal limits. INR is therapeutic at 2.5. Chemistry without metabolic acidosis. Electrolytes and LFTs without significant abnormality. Troponin 0.03, within normal limits. TSH within normal limits. Lipase not elevated. UA is consistent with infection. Blood cultures were drawn and the patient was treated with empiric ceftriaxone. Of note, the patient's heart rate did improve marginally with IV fluids. He was given 5 mg of IV Lopressor x2 with improvement to the 100s-110s. Given the patient's A. fib with RVR in setting of his UTI with decreased oral intake the patient and daughter at the bedside are in agreement with plan for admission. Triage Nursing notes reviewed and agree them. Prior medical records reviewed Vital Signs: reviewed and remarkable for tachycardia. Differential diagnosis: Infection, dehydration, metabolic abnormality, hypo/hyperglycemia, electrolyte disturbance, anemia, hypoxia, cardiac sources, intracerebral event, toxicologic, neurologic, as well as other pathologies. ER treatment provided: See below. Diagnostics interpreted by me: ECG: Atrial fibrillation with RVR, 153 bpm, ST and T wave abnormality, no overt ST elevation, QTc 463, QRS 88. Cardiac Monitoring: An order for continuous cardiac monitoring was placed and demonstrated Atrial fibrillation with RVR, 153 bpm, no ectopy. Laboratory studies: See below Imaging studies: See below Consultation(s): Shanti Sevilla, [facility] PAC, with Dr. Peres, [facility] hospitalist who will evaluate the patient for admission. HPI: The patient is a pleasant 75-year-old gentleman with a past medical history of hypertension, hyperlipidemia, GERD, atrial fibrillation on Coumadin who presents to the emergency department from home for evaluation of concern for UTI with confusion on behalf of the patient's daughter. Patient daughter reports that he has not been feeling well and not eating or drinking much and not taking his medications. She reports he was seen at the [facility] last week and his INR was elevated and he was instructed to hold his Coumadin and have it rechecked. She is unaware of any cough, congestion. She reports that he does have some mild confusion normally with some undiagnosed dementia but his confusion is worse over the past few days and he has been weaker staying mostly in bed. ROS: See above HPI for pertinent positives & negatives. A total of 10 systems reviewed and were otherwise negative. PAST MEDICAL HISTORY:See Below PAST SURGICAL HISTORY:See Below FAMILY HISTORY:See Below SOCIAL HISTORY:See Below HOME MEDICATIONS:See Below ALLERGIES:See Below VITALS:See Below PHYSICAL EXAMINATION: GENERAL: Awake, alert, relatively well-appearing, in no distress HENT: Normocephalic, atraumatic. Oropharynx with dry mucous membranes and otherwise unremarkable. EYES: Normal conjunctiva. Sclera non-icteric. NECK: Supple. No nuchal rigidity. FROM. No JVD. RESPIRATORY: Clear to auscultation. CARDIAC: Tachycardic rate, irregular rhythm. Extremities warm and well perfused. Pulses equal. ABDOMEN: Soft, non-distended. No tenderness to palpation. No rebound or guarding. No masses. RECTAL: Deferred. MUSCULOSKELETAL: Chest examination reveals no tenderness. The back is symmetrical on inspection without obvious abnormality. There is no CVA tenderness to palpation. No joint edema. LOWER EXTREMITIES: Calves are equal size bilaterally and non-tender. No edema. No discoloration. NEURO: Normal sensorium. No sensory or motor deficits noted. SKIN: No rash or jaundice noted. ED COURSE: Critical Care: I have personally spent greater than 45 minutes of critical care time in the direct management of this patient. This includes bedside care, interpretation of diagnostic studies, and testing, discussion with consultants, patient, and family members, and other required patient management activities. This 45 minutes is in excess of all separately billable procedures. Carlos Alberto Monique MD Past Med/Surg History Medical History Gram negative septicemia Family History Other Family history non-contributory Social History Smoking Status: Smoker, status unknown Preferred Language: Senegalese Communication Ability: Effective Wood Room Hand Required: No Current Living Situation: Alone Current Living Situation Comment: failure to thrive at [facility] alone Feels Safe at Home: Yes Safety Concerns: Feels Safe At This Time Assistive Devices: Hearing Aid - Left Allergies Allergies Allergy/AdvReac Type Severity Reaction Status Date / Time No Known Allergies Allergy Mild Verified 04/09/21 15:48 Home Meds Home Medications Medication Instructions Recorded Confirmed digoxin 125 mcg (0.125 mg) tablet 125 mcg PO DAILY 04/09/21 04/09/21 lisinopril 5 mg tablet 5 mg PO DAILY 04/09/21 04/09/21 multivitamin 1 tab PO DAILY 04/09/21 04/09/21 omeprazole 20 mg capsule,delayed 20 mg PO DAILY 04/09/21 04/09/21 release warfarin 5 mg tablet 5 mg PO DIRECTED 04/09/21 04/09/21 Results & Data (ED) Vital Signs Vital Signs - 24 hr 04/09/21 11:59 04/09/21 12:07 04/09/21 12:08 Temperature 36.4 C L Temperature Source Oral Pulse Rate 155 H Pulse Rate [Apical] 148 H Pulse Rhythm Irregular Pulse Rhythm [Apical] Irregular Respiratory Rate 17 16 Respiratory Effort / Characteristics Non-Labored Respiratory Depth Normal Normal Respiratory Pattern Regular Blood Pressure 145/114 H Blood Pressure Mean 124 Pulse Oximetry 98 98 95 Oxygen Delivery Method Room Air Room Air Room Air Sepsis Recent Fever Within 48 Hours No Sepsis New/Unexplained Change in Mental Status N/A Sepsis Action Taken by Nursing No Action Required 04/09/21 12:09 04/09/21 12:52 04/09/21 13:00 Temperature Temperature Source Pulse Rate 144 H 133 H Pulse Rate [Apical] Pulse Rhythm Pulse Rhythm [Apical] Respiratory Rate 20 19 Respiratory Effort / Characteristics Respiratory Depth Respiratory Pattern Blood Pressure Blood Pressure Mean Pulse Oximetry 96 Oxygen Delivery Method Room Air Sepsis Recent Fever Within 48 Hours Sepsis New/Unexplained Change in Mental Status Sepsis Action Taken by Nursing 04/09/21 13:10 04/09/21 13:20 04/09/21 13:30 Temperature Temperature Source Pulse Rate 147 H 137 H 145 H Pulse Rate [Apical] Pulse Rhythm Pulse Rhythm [Apical] Respiratory Rate 19 17 14 Respiratory Effort / Characteristics Respiratory Depth Respiratory Pattern Blood Pressure Blood Pressure Mean Pulse Oximetry Oxygen Delivery Method Sepsis Recent Fever Within 48 Hours Sepsis New/Unexplained Change in Mental Status Sepsis Action Taken by Nursing 04/09/21 13:35 04/09/21 13:36 04/09/21 13:38 Temperature Temperature Source Pulse Rate 139 H 153 H 138 H Pulse Rate [Apical] Pulse Rhythm Pulse Rhythm [Apical] Respiratory Rate 16 22 Respiratory Effort / Characteristics Respiratory Depth Respiratory Pattern Blood Pressure 117/90 120/85 120/85 Blood Pressure Mean 99 96 Pulse Oximetry Oxygen Delivery Method Sepsis Recent Fever Within 48 Hours Sepsis New/Unexplained Change in Mental Status Sepsis Action Taken by Nursing 04/09/21 13:40 04/09/21 13:50 04/09/21 14:22 Temperature Temperature Source Pulse Rate 118 H 118 H 126 H Pulse Rate [Apical] Pulse Rhythm Pulse Rhythm [Apical] Respiratory Rate 14 19 30 H Respiratory Effort / Characteristics Respiratory Depth Respiratory Pattern Blood Pressure Blood Pressure Mean Pulse Oximetry Oxygen Delivery Method Sepsis Recent Fever Within 48 Hours Sepsis New/Unexplained Change in Mental Status Sepsis Action Taken by Nursing 04/09/21 14:26 04/09/21 14:30 04/09/21 14:40 Temperature Temperature Source Pulse Rate 128 H 129 H Pulse Rate [Apical] 125 H Pulse Rhythm Pulse Rhythm [Apical] Irregular Respiratory Rate 22 28 H 24 Respiratory Effort / Characteristics Non-Labored Respiratory Depth Normal Respiratory Pattern Blood Pressure Blood Pressure Mean Pulse Oximetry 97 Oxygen Delivery Method Sepsis Recent Fever Within 48 Hours Sepsis New/Unexplained Change in Mental Status Sepsis Action Taken by Nursing 04/09/21 14:50 04/09/21 15:00 04/09/21 15:06 Temperature Temperature Source Pulse Rate 117 H 120 H 131 H Pulse Rate [Apical] Pulse Rhythm Pulse Rhythm [Apical] Respiratory Rate 28 H 22 16 Respiratory Effort / Characteristics Respiratory Depth Respiratory Pattern Blood Pressure 114/80 Blood Pressure Mean 91 Pulse Oximetry Oxygen Delivery Method Sepsis Recent Fever Within 48 Hours Sepsis New/Unexplained Change in Mental Status Sepsis Action Taken by Nursing 04/09/21 15:10 04/09/21 15:11 04/09/21 15:20 Temperature Temperature Source Pulse Rate 130 H 131 H 117 H Pulse Rate [Apical] Pulse Rhythm Pulse Rhythm [Apical] Respiratory Rate 20 19 Respiratory Effort / Characteristics Respiratory Depth Respiratory Pattern Blood Pressure 114/80 Blood Pressure Mean Pulse Oximetry Oxygen Delivery Method Sepsis Recent Fever Within 48 Hours Sepsis New/Unexplained Change in Mental Status Sepsis Action Taken by Nursing 04/09/21 15:30 04/09/21 15:40 04/09/21 15:50 Temperature Temperature Source Pulse Rate 123 H 124 H 122 H Pulse Rate [Apical] Pulse Rhythm Pulse Rhythm [Apical] Respiratory Rate 19 19 24 Respiratory Effort / Characteristics Respiratory Depth Respiratory Pattern Blood Pressure Blood Pressure Mean Pulse Oximetry Oxygen Delivery Method Sepsis Recent Fever Within 48 Hours Sepsis New/Unexplained Change in Mental Status Sepsis Action Taken by Nursing Laboratory Data Attestation: I reviewed the patient's lab results. Result diagrams: 04/09/21 11:55 04/09/21 11:55 Lab Results 04/09/21 04/09/21 04/09/21 Range/Units 11:55 11:55 11:55 WBC 8.45 (4.8-10.8) K/uL RBC 4.73 (4.7-6.1) M/uL Hgb 14.7 (14.0-18.0) g/dL Hct 43.6 (42-52) % MCV 92.2 (80-100) fL MCH 31.1 (25-34) pg MCHC 33.7 (32-36) g/dL RDW Std Deviation 44.1 (36.4-46.3) fL RDW Coeff of Terrence 13.2 (11.5-14.5) % Plt Count 212 (130-400) K/uL MPV 13.1 H (7.4-10.4) fL Immature Gran % (Auto) 0.2 % Neut % (Auto) 69.1 % Lymph % (Auto) 17.4 % Kenton % (Auto) 11.1 % Eos % (Auto) 1.8 % Baso % (Auto) 0.4 % Neut # (Auto) 5.84 (1.4-6.5) K/uL Lymph # (Auto) 1.47 (1.2-3.4) K/uL Kenton # (Auto) 0.94 H (0.11-0.59) K/uL Eos # (Auto) 0.15 (0-0.5) K/uL Baso # (Auto) 0.03 (0-0.2) K/uL Immature Gran # (Auto) 0.02 (0.00-0.02) K/uL PT (9.0-12.0) Seconds INR (0.9-1.1) Sodium 138 (136-145) mmol/L Potassium 3.8 (3.5-5.1) mmol/L Chloride 100 (98-107) mmol/L Carbon Dioxide 27 (21-32) mmol/L Anion Gap 11 (3-11) BUN 13 (6-23) mg/dl Creatinine 0.98 (0.6-1.4) mg/dl Est Cr Clr Drug Dosing Not Reportable Est GFR ( Amer) 88.3 ml/min Est GFR (Non-Af Amer) 76.2 ml/min BUN/Creatinine Ratio 13.3 (10-20) Glucose 116 H (70-99) mg/dl Calcium 9.3 (8.5-10.1) mg/dl Phosphorus 3.2 (2.5-4.9) mg/dl Magnesium 2.0 (1.7-2.4) mg/dl Total Bilirubin 2.4 H (0.2-1.0) mg/dl AST 17 (13-39) U/L ALT 15 (7-52) U/L Alkaline Phosphatase 112 H (34-104) U/L Troponin I 0.03 (0-0.04) ng/ml Total Protein 7.2 (6.0-8.3) gm/dl Albumin 4.1 (3.4-5.0) gm/dl Globulin 3.1 (2.5-4.0) gm/dl Albumin/Globulin Ratio 1.3 (0.9-2) Lipase 31 (11-82) U/L TSH 3.823 (0.300-4.500) uIu/ml SARS-CoV-2, RNA, NAAT (NEGATIVE) 04/09/21 04/09/21 Range/Units 11:55 12:15 WBC (4.8-10.8) K/uL RBC (4.7-6.1) M/uL Hgb (14.0-18.0) g/dL Hct (42-52) % MCV (80-100) fL MCH (25-34) pg MCHC (32-36) g/dL RDW Std Deviation (36.4-46.3) fL RDW Coeff of Terrence (11.5-14.5) % Plt Count (130-400) K/uL MPV (7.4-10.4) fL Immature Gran % (Auto) % Neut % (Auto) % Lymph % (Auto) % Kenton % (Auto) % Eos % (Auto) % Baso % (Auto) % Neut # (Auto) (1.4-6.5) K/uL Lymph # (Auto) (1.2-3.4) K/uL Kenton # (Auto) (0.11-0.59) K/uL Eos # (Auto) (0-0.5) K/uL Baso # (Auto) (0-0.2) K/uL Immature Gran # (Auto) (0.00-0.02) K/uL PT 24.0 H (9.0-12.0) Seconds INR 2.5 H (0.9-1.1) Sodium (136-145) mmol/L Potassium (3.5-5.1) mmol/L Chloride (98-107) mmol/L Carbon Dioxide (21-32) mmol/L Anion Gap (3-11) BUN (6-23) mg/dl Creatinine (0.6-1.4) mg/dl Est Cr Clr Drug Dosing Est GFR ( Amer) ml/min Est GFR (Non-Af Amer) ml/min BUN/Creatinine Ratio (10-20) Glucose (70-99) mg/dl Calcium (8.5-10.1) mg/dl Phosphorus (2.5-4.9) mg/dl Magnesium (1.7-2.4) mg/dl Total Bilirubin (0.2-1.0) mg/dl AST (13-39) U/L ALT (7-52) U/L Alkaline Phosphatase (34-104) U/L Troponin I (0-0.04) ng/ml Total Protein (6.0-8.3) gm/dl Albumin (3.4-5.0) gm/dl Globulin (2.5-4.0) gm/dl Albumin/Globulin Ratio (0.9-2) Lipase (11-82) U/L TSH (0.300-4.500) uIu/ml SARS-CoV-2, RNA, NAAT NEGATIVE (NEGATIVE) Administered Medications Digoxin (Digoxin 0.125 Mg Tab) 0.125 mg PO DAILY@1600 [facility] Stop: 05/09/21 17:59 Last Admin: 04/09/21 17:44 Dose: 0.125 mg Documented by: [id number] Metoprolol Tartrate (Metoprolol Tartrate 1 Mg/Ml Vial) 5 mg IV Q6 PRN PRN Reason: tachycardiac Stop: 05/09/21 17:59 Last Admin: 04/09/21 21:19 Dose: 5 mg Documented by: [id number] Metoprolol Tartrate (Metoprolol Tartrate 25 Mg Tab) 12.5 mg PO Q6H [facility] Stop: 05/09/21 17:59 Last Admin: 04/09/21 23:06 Dose: 12.5 mg Documented by: [id number] Admin: 04/09/21 17:44 Dose: 12.5 mg Documented by: [id number] Warfarin Sodium (Warfarin Sod 2.5 Mg Tab) 2.5 mg PO DAILY@1600 [facility] Stop: 05/09/21 19:14 Last Admin: 04/09/21 20:21 Dose: 2.5 mg Documented by: [id number] Discontinued Medications Sodium Chloride (Nss 1000ml) 1,000 mls @ 999 mls/hr IV .Q1H1M ONE Stop: 04/09/21 13:05 Last Infusion: 04/09/21 12:24 Dose: 0 mls/hr Documented by: [id number] Admin: 04/09/21 12:14 Dose: 999 mls/hr Documented by: [id number] Acetaminophen (Ofirmev) 1,000 mg in 100 mls @ 400 mls/hr IV NOW STA Stop: 04/09/21 12:19 Last Infusion: 04/09/21 12:44 Dose: 0 mls/hr Documented by: [id number] Admin: 04/09/21 12:24 Dose: 400 mls/hr Documented by: [id number] Sodium Chloride (Nss 1000ml) 1,000 mls @ 999 mls/hr IV .Q1H1M ONE Stop: 04/09/21 15:41 Last Infusion: 04/09/21 15:43 Dose: 0 mls/hr Documented by: [id number] Admin: 04/09/21 15:11 Dose: 999 mls/hr Documented by: [id number] Ceftriaxone Sodium (Rocephin) 2,000 mg in 70 mls @ 140 mls/hr IV NOW STA Stop: 04/09/21 15:15 Last Infusion: 04/09/21 15:43 Dose: 0 mls/hr Documented by: [id number] Admin: 04/09/21 15:11 Dose: 140 mls/hr Documented by: [id number] Ioversol (Optiray 320 100ml) 94 ml IV ONCE ONE Stop: 04/09/21 14:29 Last Admin: 04/09/21 14:14 Dose: 94 ml Documented by: [id number] Lorazepam (Lorazepam 0.5 Mg Tab) 0.25 mg PO NOW STA Stop: 04/09/21 18:32 Last Admin: 04/09/21 18:44 Dose: 0.25 mg Documented by: [id number] Metoprolol Tartrate (Metoprolol Tartrate 1 Mg/Ml Vial) 5 mg IV NOW STA Stop: 04/09/21 13:32 Last Admin: 04/09/21 13:38 Dose: 5 mg Documented by: [id number] Metoprolol Tartrate (Metoprolol Tartrate 1 Mg/Ml Vial) 5 mg IV NOW STA Stop: 04/09/21 14:42 Last Admin: 04/09/21 15:11 Dose: 5 mg Documented by: [id number] Imaging Data Radiologist's Impression: Chest X-Ray 04/09/21 12:03 XR chest 1V portable CLINICAL HISTORY: Atypical chest pain TECHNIQUE: Single frontal radiograph of the chest was obtained. Comparison: Comparison is made to chest one view 09/07/2016 FINDINGS: No lines and tubes are seen. Cardiomegaly is noted. Interstitial prominence is seen in the bilateral lower lungs. No evidence of pleural effusion or pneumothorax. IMPRESSION: Interstitial prominence in the bilateral lower lungs may represent scarring or atelectasis. ACT 112: Negative or not required by law. Electronically signed by: Victor M Bran M.D. 04/09/2021 1:05 PM Abdomen/Pelvis CT 04/09/21 12:[address] WITH IV CONTRAST HISTORY: Acute left-sided flank pain with urinary tract infection left flank pain, ?UTI TECHNIQUE: Multiaxial CT images of the abdomen and pelvis were performed following the IV administration of 94 cc of Optiray, A dose lowering technique was utilized adhering to the principles of ALARA. COMPARISON STUDY: CT abdomen and pelvis 09/05/2016 FINDINGS: Moderate cardiomegaly. Aortic and mitral annular with coronary artery calcifications. Trace right pleural effusion. Pulmonary edema with mild bibasilar atelectasis. No pneumatosis or pneumoperitoneum respiratory motion artifact limits the study. Unremarkable spleen, pancreas and adrenal glands. Cholelithiasis without CT evidence of acute cholecystitis. There is no biliary ductal dilation. Unremarkable liver. There is symmetric enhancement of the kidneys. There are a few calculi of the inferior pole right kidney measuring up to 4 mm. 3 mm nonobstructing calculus of the interpolar left kidney. Decreased amount of left renal calculi compared to the prior study. There are a few cysts noted within left kidney measuring up to 1.6 cm within the superior pole. No ureteral calculi or hydronephrosis. Prostamegaly. Urinary bladder wall thickening with partial distention. Mild perivesicular stranding. Atherosclerotic plaque of the abdominal aorta and branch vessels. No aneurysm. No adenopathy. No bowel obstruction. Colonic diverticulosis. Mild wall thickening of the sigmoid colon is likely secondary to partial distention. Normal appendix. Demineralized appearance of the bones. Degenerative changes of the spine, pelvis and hips. Subacute to chronic appearing bilateral rib fractures, most of which are new from prior study. Multilevel intervertebral disc space narrowing, severe at L1-L2. Mild superior endplate compression deformity at T9 similar to prior. Moderate T11 superior endplate compression deformity without retropulsion and mild paravertebral edema. Chronic T12 compression deformity. Mild superior endplate compression deformity of the L1 and L2 vertebral bodies. Severe L4 compression deformity. Dextroscoliosis of the lumbar spine centered at L1-L2. IMPRESSION: 1. Numerous thoracolumbar compression deformities are new from 09/05/2016 and appear to be acute, notably at the T11, L1 and L2 levels with moderate paravertebral edema. No associated retropulsion. 2. Bilateral nephrolithiasis. No ureteral calculi or hydronephrosis. 3. Cardiomegaly with pulmonary edema, trace right pleural effusion with bibasilar atelectasis. 4. Cholelithiasis without CT evidence of acute cholecystitis. 5. No bowel obstruction or bowel wall thickening. 6. Colonic diverticulosis. 7. Prostamegaly with urinary bladder wall thickening and perivesicular stranding. Correlate with urinalysis to exclude cystitis. 8. Additional findings as above. ACT 112: Negative or not required by law. The above report was generated using voice recognition software. It may contain grammatical, syntax or spelling errors. Electronically signed by: Vaibhav Castro M.D. 04/09/2021 2:[address] 04/09/21 12:17 CT head/brain wo con CLINICAL HISTORY: confusion Technique: Contiguous axial CT images of the head were acquired from the base of the skull to the vertex without intravenous contrast administration. Images were viewed in brain, subdural and bone windows. Automated dose lowering techniques and/or adjustment according to patient size were utilized for this exam. Comparison: Comparison is made to CT head 09/08/2016 Findings: Areas of decreased attenuation are present in the periventricular and subcortical white matter bilaterally consistent with small vessel ischemic disease. Generalized cerebral atrophy with commensurate enlargement of the ventricles, sulci, and cisterns is also present. There is no acute intracranial hemorrhage or evidence of acute territorial infarction. No shift of the midline structures, mass effect, or extra-axial abnormalities are shown. Atherosclerotic calcifications are present in the intracranial segments of the internal carotid arteries. Focal encephalomalacia in the left occipital region is unchanged from prior exam. Imaged portions of the paranasal sinuses and mastoid air cells are clear. The orbits appear normal. There are no acute fractures of the calvaria or scalp swelling. Impression: No acute intracranial hemorrhage, no evidence of acute territorial infarction or other acute intracranial disease process. ACT 112: Negative or not required by law. Electronically signed by: Victor M Bran M.D. 04/09/2021 2:28 PM Discharge Plan Visit Data Chief Complaint: Weakness Stated Complaint: BACK PAIN, WEAKNESS, URINARY SX ED Provider: Carlos Alberto Monique Discharge Problem: Atrial fibrillation with RVR, UTI (urinary tract infection), Confusion Patient Disposition: Admitted As Inpatient Discharge Instructions Interventions: ED Discharge Assessment Last Done: 04/09/21 20:39 Discharge Problem: UTI (urinary tract infection) Qualifiers: Urinary tract infection type: site unspecified Hematuria presence: without hematuria Qualified Code(s): N39.0 - Urinary tract infection, site not specified
[2021-04-09 12:36] LABS: Basophils # (auto) 0.03 K/uL (0-0.2); Basophils % (auto) 0.4 %; Eosinophils # (auto) 0.15 K/uL (0-0.5); Eosinophils % (auto) 1.8 %; Hematocrit (blood only) 43.6 % (42-52); Hemoglobin 14.7 g/dL (14.0-18.0); Immature Granulocytes # (auto) 0.02 K/uL (0.00-0.02); Immature Granulocytes % (auto) 0.2 %; Lymphocytes # (auto) 1.47 K/uL (1.2-3.4); Lymphocytes % (auto) 17.4 %; Mean Corpuscular Hemoglobin 31.1 pg (25-34); Mean Corpuscular Hgb Conc 33.7 g/dL (32-36); Mean Corpuscular Volume 92.2 fL (80-100); Mean Platelet Volume 13.1 fL (7.4-10.4); Monocytes # (auto) 0.94 K/uL (0.11-0.59); Monocytes % (auto) 11.1 %; Neutrophils # (auto) 5.84 K/uL (1.4-6.5); Neutrophils % (auto) 69.1 %; Platelet Count 212 K/uL (130-400); RDW Coefficient of Variation 13.2 % (11.5-14.5); RDW Standard Deviation 44.1 fL (36.4-46.3); Red Blood Count 4.73 M/uL (4.7-6.1); White Blood Count 8.45 K/uL (4.8-10.8)
[2021-04-09 12:55] LABS: INR 2.5 (0.9-1.1)
[2021-04-09 13:00] LABS: Troponin I 0.03 ng/ml (0-0.04)
--- NOTE | 2021-04-09 13:06 | XRay Report ---
XR chest 1V portable CLINICAL HISTORY: Atypical chest pain TECHNIQUE: Single frontal radiograph of the chest was obtained. Comparison: Comparison is made to chest one view 09/07/2016 FINDINGS: No lines and tubes are seen. Cardiomegaly is noted. Interstitial prominence is seen in the bilateral lower lungs. No evidence of pleural effusion or pneumothorax. IMPRESSION: Interstitial prominence in the bilateral lower lungs may represent scarring or atelectasis. ACT 112: Negative or not required by law. Electronically signed by: Victor M Bran M.D. 04/09/2021 1:05 PM
[2021-04-09 13:12] LABS: Alanine Aminotransferase 15 U/L (7-52); Albumin Globulin Ratio 1.3 (0.9-2); Albumin Level 4.1 gm/dl (3.4-5.0); Alkaline Phosphatase 112 U/L (34-104); Anion Gap 11 (3-11); Aspartate Aminotransferase 17 U/L (13-39); BUN Creatinine Ratio 13.3 (10-20); Bilirubin,Total 2.4 mg/dl (0.2-1.0); Blood Urea Nitrogen 13 mg/dl (6-23); Calcium 9.3 mg/dl (8.5-10.1); Carbon Dioxide 27 mmol/L (21-32); Chloride 100 mmol/L (98-107); Est GFR (African American) 88.3 ml/min; Est GFR (Non-African American) 76.2 ml/min; Globulin 3.1 gm/dl (2.5-4.0); Glucose 116 mg/dl (70-99); Lipase 31 U/L (11-82); Phosphorus 3.2 mg/dl (2.5-4.9); Potassium 3.8 mmol/L (3.5-5.1); Sodium 138 mmol/L (136-145); Total Protein 7.2 gm/dl (6.0-8.3)
[2021-04-09] MEDS ORDERED: METOPROLOL TARTRATE 1 MG/ML VIAL IV STA ×2 (13:31→14:41)
--- NOTE | 2021-04-09 13:50 | Electrocardiogram Report ---
Test Reason : Blood Pressure : / mmHG Vent. Rate : 153 BPM Atrial Rate : 136 BPM P-R Int : 000 ms QRS Dur : 088 ms QT Int : 290 ms P-R-T Axes : 000 -05 -24 degrees QTc Int : 463 ms Atrial fibrillation with rapid ventricular response Diffuse Nonspecific ST and T wave abnormality Abnormal ECG When compared with ECG of 05-SEP-2016 15:34, T wave inversion less evident in Lateral leads Confirmed by Patricio Dobbins ([id number]) on 04/09/2021 1:50:04 PM Referred By: Confirmed By:Patricio Dobbins
[2021-04-09] MEDS ORDERED: OPTIRAY 320 100ml IV ONE (14:28)
--- NOTE | 2021-04-09 14:30 | CT Scan Report ---
CT head/brain wo con CLINICAL HISTORY: confusion Technique: Contiguous axial CT images of the head were acquired from the base of the skull to the chepe kyle without intravenous contrast administration. Images were viewed in brain, subdural and bone [facility]. Automated dose lowering techniques and/or adjustment according to patient size were utilized for this exam. Comparison: Comparison is made to CT head 09/08/2016 Findings: Areas of decreased attenuation are present in the periventricular and subcortical white matter bilate rally consistent with small vessel ischemic disease. Generalized cerebral atrophy with commensurate e nlargement of the ventricles, sulci, and cisterns is also present. There is no acute intracranial hem orrhage or evidence of acute territorial infarction. No shift of the midline structures, mass effect, or extra-axial abnormalities are shown. Atherosclerotic calcifications are present in the intracran ial segments of the internal carotid arteries. Focal encephalomalacia in the left occipital region is unchanged from prior exam. Imaged portions of the paranasal sinuses and mastoid air cells are clear. The orbits appear normal. There are no acute fractures of the calvaria or scalp swelling. Impression: No acute intracranial hemorrhage, no evidence of acute territorial infarction or other acute intracra nial disease process. ACT 112: Negative or not required by law. Electronically signed by: Victor M Bran M.D. 04/09/2021 2:28 PM
[2021-04-09 14:41] LABS: Appearance Urine Turbid (Clear); Bacteria Urine Automated 4+ (Negative); Blood Urine 3+ (Negative); Color Urine Dark Yellow; Epithelial Cell Urine Auto >30 /lpf (0-5); Glucose Urine UA Negative (Negative); Ketones Urine Trace (Negative); Leukocyte Esterase Urine 2+ (Negative); Nitrite Urine Positive (Negative); Protein Urine 1+ (Negative); Urobilinogen Urine Negative (Negative); WBC Urine Automated >30 /hpf (0-5)
--- NOTE | 2021-04-09 14:43 | CT Scan Report ---
ABDOMEN AND PELVIS CT WITH IV CONTRAST HISTORY: Acute left-sided flank pain with urinary tract infection left flank pain, ?UTI TECHNIQUE: Multiaxial CT images of the abdomen and pelvis were performed following the IV administrat ion of 94 cc of Optiray, A dose lowering technique was utilized adhering to the principles of ALARA. COMPARISON STUDY: CT abdomen and pelvis 09/05/2016 FINDINGS: Moderate cardiomegaly. Aortic and mitral annular with coronary artery calcifications. Trace right ple ural effusion. Pulmonary edema with mild bibasilar atelectasis. No pneumatosis or pneumoperitoneum re spiratory motion artifact limits the study. Unremarkable spleen, pancreas and adrenal glands. Choleli thiasis without CT evidence of acute cholecystitis. There is no biliary ductal dilation. Unremarkable liver. There is symmetric enhancement of the kidneys. There are a few calculi of the inferior pole right kid lokesh measuring up to 4 mm. 3 mm nonobstructing calculus of the interpolar left kidney. Decreased amoun t of left renal calculi compared to the prior study. There are a few cysts noted within left kidney m easuring up to 1.6 cm within the superior pole. No ureteral calculi or hydronephrosis. Prostamegaly. Urinary bladder wall thickening with partial distention. Mild perivesicular stranding. Atheroscleroti c plaque of the abdominal aorta and branch vessels. No aneurysm. No adenopathy. No bowel obstruction. Colonic diverticulosis. Mild wall thickening of the sigmoid colon is likely sec ondary to partial distention. Normal appendix. Demineralized appearance of the bones. Degenerative ch anges of the spine, pelvis and hips. Subacute to chronic appearing bilateral rib fractures, most of w hich are new from prior study. Multilevel intervertebral disc space narrowing, severe at L1-L2. Mild superior endplate compression deformity at T9 similar to prior. Moderate T11 superior endplate compre ssion deformity without retropulsion and mild paravertebral edema. Chronic T12 compression deformity. Mild superior endplate compression deformity of the L1 and L2 vertebral bodies. Severe L4 compressio n deformity. Dextroscoliosis of the lumbar spine centered at L1-L2. IMPRESSION: 1. Numerous thoracolumbar compression deformities are new from 09/05/2016 and appear to be acute, nota carlos at the T11, L1 and L2 levels with moderate paravertebral edema. No associated retropulsion. 2. Bilateral nephrolithiasis. No ureteral calculi or hydronephrosis. 3. Cardiomegaly with pulmonary edema, trace right pleural effusion with bibasilar atelectasis. 4. Cholelithiasis without CT evidence of acute cholecystitis. 5. No bowel obstruction or bowel wall thickening. 6. Colonic diverticulosis. 7. Prostamegaly with urinary bladder wall thickening and perivesicular stranding. Correlate with urin alysis to exclude cystitis. 8. Additional findings as above. ACT 112: Negative or not required by law. The above report was generated using voice recognition software. It may contain grammatical, syntax o r spelling errors. Electronically signed by: Vaibhav Castro M.D. 04/09/2021 2:42 PM
[2021-04-09] MEDS ORDERED: cefTRIAXone SODIUM 2,000 MG/70 ML BAG IV STA (14:46)
[2021-04-09 14:47] LABS: Bilirubin Urine 1+ (Negative)
[2021-04-09 15:09] LABS: Cast Urine Automated 0 /lpf (0-5)
--- NOTE | 2021-04-09 15:51 | History & Physical Report ---
Date of Service April 09, 2021 Assessment & Plan (1) Atrial fibrillation with RVR: Plan: - Admit to tele - Will continue lopressor IV prn, start metoprolol tartrate 12.5 mg Q6H and give home digoxin now since he has missed meds x 1 week. Pt is not on metoprolol at home, appears that he was on this several years ago, unsure why he was ever taken off or if the patient stopped it himself - Consult cardiology, appears he previously followed with Dr. Luna as outpa tient -Check 2D echo -Continue warfarin at 2.5 daily, INR 2.5 on admission, trend daily INRs - COVID negative (2) CAD (coronary artery disease): Plan: -History of such, he is not on statin therapy or beta-blockade, not on -Coumadin for anticoagulation (3) H/O mechanical aortic valve replacement: Plan: - Hx of such in 2005 at [facility] in [place] - coumadin as above (4) UTI (urinary tract infection): Plan: - UA appears to be grossly infected - Follow urine cultures, blood cultures, lactate pending - WBC is 8.45, afebrile - CT abd/pelvis showing some perivesicular stranding - CT head with increased confusion is normal (5) HTN (hypertension): Plan: - Continue medications as above (6) Back pain: Plan: - Chronic, no new trauma or injury. Pt notes fall 8 years ago from 10 feet high and landed on concrete. He uses a walker/cane at baseline. Does not take chronic pain meds (7) HLD (hyperlipidemia): Plan: - check lipid panel with am labs, not on statin therapy DVT PPx: - teds, scds, Coumadin CODE: Full Dispo: From home, likely to remain in the hospital x 1-2 days History of Present Illness Chief Complaint: Weakness Primary Care Provider: NO PCP This is a 75 yo M with PMHx of mechanical aortic valve replacement in 2005, chronic A. fib on Coumadin, CAD, HTN, HLD who presents to the ER with acute onset of weakness and worsening confusion, possibly with hx of some dementia at baseline. His daughter is present at bedside and supports the history. The patient is also very hard of hearing, but hears best out of his left ear with hearing aid in. Patient routinely follows with the [facility] for his medical care. Patient is unable to tell me chronological events today, and looks to his daughter for several of his answers. Daughter is concerned that there is some baseline dementia however that it is worsened, and that when she leaves he will become increasingly confused. Amongst becoming increasingly confused, he has not taken his pills including digoxin. Pt was instructed last week to stop taking Coumadin because his INR with supratherapeutic. Today his INR is 2.5. Pt admits to depressed appetite. He denies any urinary type symptoms although his UA appears to be grossly infected today. He reports left lower back and buttocks pain which is chronic however seems to be slightly worse today. He denies any acute injury or trauma to the area. 8 years ago he fell from 10 feet in the air and hit concrete, and since then his back has never been the same. He never had surgery performed and is not on any chronic pain medication at baseline, only uses Tylenol OTC. Allergies Allergy/AdvReac Type Severity Reaction Status Date / Time No Known Allergies Allergy Mild Verified 04/09/21 15:48 Home Medications Medication Instructions Recorded Confirmed Type digoxin 125 mcg (0.125 mg) tablet 125 mcg PO DAILY 04/09/21 04/09/21 History lisinopril 5 mg tablet 5 mg PO DAILY 04/09/21 04/09/21 History multivitamin 1 tab PO DAILY 04/09/21 04/09/21 History omeprazole 20 mg capsule,delayed 20 mg PO DAILY 04/09/21 04/09/21 History release warfarin 5 mg tablet 5 mg PO DIRECTED 04/09/21 04/09/21 History Past Med/Surg History Medical History (Updated 04/09/21 @ 16:50 by Arlen Sevilla PA-C) Gram negative septicemia Social History Smoking Status: Smoker, status unknown Preferred Language: Togolese Communication Ability: Effective Department Sales Manager Required: No Current Living Situation: Alone Current Living Situation Comment: failure to thrive at [facility] alone Feels Safe at Home: Yes Safety Concerns: Feels Safe At This Time Assistive Devices: Hearing Aid - Left Review of Systems Review of Systems: Constitutional: No fever, sweats or chills Eyes: No diplopia, no worsening or blurred vision ENT: + hard of hearing, no trouble swallowing Respiratory: No cough, sputum, dyspnea at rest or on exertion Cardiovascular: No chest pain, tightness or palpitations, No lightheadedness or dizziness Abdomen: No pain, nausea, vomiting, diarrhea or constipation Musculoskeletal: No joint pain, calf pain, swelling Neurologic: No weakness, numbness/tingling, + balance problems, Uses a walker or cane at baseline Psychiatric: No anxiety or depression Skin: No rash or itch Physical Exam Physical Exam: General: awake, alert, no apparent distress, + thin Head: Normocephalic, atraumatic ENT: PERRL, EOMI, no pharyngeal exudate, mucous membranes moist Chest: Clear to auscultation, on room air, no adventitious breath sounds Cardiac: + Irregularly irregular with heart rate in the 130s, faint murmur, no JVD, normal peripheral pulses, good capillary refill Abdominal: NABS x 4 quadrants, soft, nondistended, nontender to palpation, no rebound or guarding Extremities: Normal inspection, no peripheral edema or erythema, calfs nontender to palpation Psych: Normal mood and affect Neuro: AAO x 3, strength intact bilaterally and rated 5/5, no motor deficits, speech is clear, no peripheral sensory deficits Results & Data Results & Data ([facility]) Vital Signs (Past 12 Hours) Vital Signs Temp Pulse Pulse Resp BP Pulse Ox 04/09/21 15:11 131 H 114/80 04/09/21 14:26 125 H 22 97 04/09/21 13:38 138 H 120/85 04/09/21 12:09 96 04/09/21 12:08 95 04/09/21 12:07 148 H 16 98 04/09/21 11:59 36.4 C L 155 H 17 145/114 H 98 Laboratory Results 04/09/21 15:19 Aerobic Blood Culture - Pending Blood Anaerobic Blood Culture - Pending 04/09/21 15:10 Aerobic Blood Culture - Pending Blood Anaerobic Blood Culture - Pending 04/09/21 Unknown Urine Culture - Pending Urine,Clean Catch 04/09/21 04/09/21 04/09/21 Unknown 15:57 15:57 WBC RBC Hgb Hct MCV MCH MCHC RDW Std Deviation RDW Coeff of Terrence Plt Count MPV Immature Gran % (Auto) Neut % (Auto) Lymph % (Auto) Lewis % (Auto) Eos % (Auto) Baso % (Auto) Neut # (Auto) Lymph # (Auto) Lewis # (Auto) Eos # (Auto) Baso # (Auto) Immature Gran # (Auto) PT INR Sodium Potassium Chloride Carbon Dioxide Anion Gap BUN Creatinine Est Cr Clr Drug Dosing Est GFR ( Amer) Est GFR (Non-Af Amer) BUN/Creatinine Ratio Glucose Lactate 1.0 Calcium Phosphorus Magnesium Total Bilirubin AST ALT Alkaline Phosphatase Troponin I Total Protein Albumin Globulin Albumin/Globulin Ratio Lipase Procalcitonin Cancelled TSH Urine Color Dark Yellow Urine Appearance Turbid A Urine pH 5.0 Ur Specific [place] 1.030 Urine Protein 1+ H Urine Glucose (UA) Negative Urine Ketones Trace H Urine Blood 3+ H Urine Nitrite Positive A Urine Bilirubin 1+ H Urine Urobilinogen Negative Ur Leukocyte Esterase 2+ H Urine WBC (Auto) >30 H Urine RBC (Auto) 5-10 H U Hyaline Cast (Auto) 0 U Epithel Cells (Auto) >30 H Urine Bacteria (Auto) 4+ H Urine Yeast Not Reportable SARS-CoV-2, RNA, NAAT 04/09/21 04/09/21 04/09/21 12:15 11:55 11:55 WBC 8.45 RBC 4.73 Hgb 14.7 Hct 43.6 MCV 92.2 MCH 31.1 MCHC 33.7 RDW Std Deviation 44.1 RDW Coeff of Terrence 13.2 Plt Count 212 MPV 13.1 H Immature Gran % (Auto) 0.2 Neut % (Auto) 69.1 Lymph % (Auto) 17.4 Lewis % (Auto) 11.1 Eos % (Auto) 1.8 Baso % (Auto) 0.4 Neut # (Auto) 5.84 Lymph # (Auto) 1.47 Lewis # (Auto) 0.94 H Eos # (Auto) 0.15 Baso # (Auto) 0.03 Immature Gran # (Auto) 0.02 PT 24.0 H INR 2.5 H Sodium Potassium Chloride Carbon Dioxide Anion Gap BUN Creatinine Est Cr Clr Drug Dosing Est GFR ( Amer) Est GFR (Non-Af Amer) BUN/Creatinine Ratio Glucose Lactate Calcium Phosphorus Magnesium Total Bilirubin AST ALT Alkaline Phosphatase Troponin I Total Protein Albumin Globulin Albumin/Globulin Ratio Lipase Procalcitonin TSH Urine Color Urine Appearance Urine pH Ur Specific [place] Urine Protein Urine Glucose (UA) Urine Ketones Urine Blood Urine Nitrite Urine Bilirubin Urine Urobilinogen Ur Leukocyte Esterase Urine WBC (Auto) Urine RBC (Auto) U Hyaline Cast (Auto) U Epithel Cells (Auto) Urine Bacteria (Auto) Urine Yeast SARS-CoV-2, RNA, NAAT NEGATIVE 04/09/21 04/09/21 11:55 11:55 WBC RBC Hgb Hct MCV MCH MCHC RDW Std Deviation RDW Coeff of Terrence Plt Count MPV Immature Gran % (Auto) Neut % (Auto) Lymph % (Auto) Lewis % (Auto) Eos % (Auto) Baso % (Auto) Neut # (Auto) Lymph # (Auto) Lewis # (Auto) Eos # (Auto) Baso # (Auto) Immature Gran # (Auto) PT INR Sodium 138 Potassium 3.8 Chloride 100 Carbon Dioxide 27 Anion Gap 11 BUN 13 Creatinine 0.98 Est Cr Clr Drug Dosing Not Reportable Est GFR ( Amer) 88.3 Est GFR (Non-Af Amer) 76.2 BUN/Creatinine Ratio 13.3 Glucose 116 H Lactate Calcium 9.3 Phosphorus 3.2 Magnesium 2.0 Total Bilirubin 2.4 H AST 17 ALT 15 Alkaline Phosphatase 112 H Troponin I 0.03 Total Protein 7.2 Albumin 4.1 Globulin 3.1 Albumin/Globulin Ratio 1.3 Lipase 31 Procalcitonin TSH 3.823 Urine Color Urine Appearance Urine pH Ur Specific [place] Urine Protein Urine Glucose (UA) Urine Ketones Urine Blood Urine Nitrite Urine Bilirubin Urine Urobilinogen Ur Leukocyte Esterase Urine WBC (Auto) Urine RBC (Auto) U Hyaline Cast (Auto) U Epithel Cells (Auto) Urine Bacteria (Auto) Urine Yeast SARS-CoV-2, RNA, NAAT Diagnostic Findings Chest X-Ray 04/09/21 12:03 XR chest 1V portable CLINICAL HISTORY: Atypical chest pain TECHNIQUE: Single frontal radiograph of the chest was obtained. Comparison: Comparison is made to chest one view 09/07/2016 FINDINGS: No lines and tubes are seen. Cardiomegaly is noted. Interstitial prominence is seen in the bilateral lower lungs. No evidence of pleural effusion or pneumothorax. IMPRESSION: Interstitial prominence in the bilateral lower lungs may represent scarring or atelectasis. ACT 112: Negative or not required by law. Electronically signed by: Victor M Bran M.D. 04/09/2021 1:05 PM Abdomen/Pelvis CT 04/09/21 12:[address] WITH IV CONTRAST HISTORY: Acute left-sided flank pain with urinary tract infection left flank pain, ?UTI TECHNIQUE: Multiaxial CT images of the abdomen and pelvis were performed following the IV administration of 94 cc of Optiray, A dose lowering technique was utilized adhering to the principles of ALARA. COMPARISON STUDY: CT abdomen and pelvis 09/05/2016 FINDINGS: Moderate cardiomegaly. Aortic and mitral annular with coronary artery calcifications. Trace right pleural effusion. Pulmonary edema with mild bibasilar atelectasis. No pneumatosis or pneumoperitoneum respiratory motion artifact limits the study. Unremarkable spleen, pancreas and adrenal glands. Cholelithiasis without CT evidence of acute cholecystitis. There is no biliary ductal dilation. Unremarkable liver. There is symmetric enhancement of the kidneys. There are a few calculi of the inferior pole right kidney measuring up to 4 mm. 3 mm nonobstructing calculus of the interpolar left kidney. Decreased amount of left renal calculi compared to the prior study. There are a few cysts noted within left kidney measuring up to 1.6 cm within the superior pole. No ureteral calculi or hydronephrosis. Prostamegaly. Urinary bladder wall thickening with partial distention. Mild perivesicular stranding. Atherosclerotic plaque of the abdominal aorta and branch vessels. No aneurysm. No adenopathy. No bowel obstruction. Colonic diverticulosis. Mild wall thickening of the sigmoid colon is likely secondary to partial distention. Normal appendix. Demineralized appearance of the bones. Degenerative changes of the spine, pelvis and hips. Subacute to chronic appearing bilateral rib fractures, most of which are new from prior study. Multilevel intervertebral disc space narrowing, severe at L1-L2. Mild superior endplate compression deformity at T9 similar to prior. Moderate T11 superior endplate compression deformity without retropulsion and mild paravertebral edema. Chronic T12 compression deformity. Mild superior endp late compression deformity of the L1 and L2 vertebral bodies. Severe L4 compression deformity. Dextroscoliosis of the lumbar spine centered at L1-L2. IMPRESSION: 1. Numerous thoracolumbar compression deformities are new from 09/05/2016 and appear to be acute, notably at the T11, L1 and L2 levels with moderate paravertebral edema. No associated retropulsion. 2. Bilateral nephrolithiasis. No ureteral calculi or hydronephrosis. 3. Cardiomegaly with pulmonary edema, trace right pleural effusion with bibasilar atelectasis. 4. Cholelithiasis without CT evidence of acute cholecystitis. 5. No bowel obstruction or bowel wall thickening. 6. Colonic diverticulosis. 7. Prostamegaly with urinary bladder wall thickening and perivesicular stranding. Correlate with urinalysis to exclude cystitis. 8. Additional findings as above. ACT 112: Negative or not required by law. The above report was generated using voice recognition software. It may contain grammatical, syntax or spelling errors. Electronically signed by: Vaibhav Castro M.D. 04/09/2021 2:[address] 04/09/21 12:17 CT head/brain wo con CLINICAL HISTORY: confusion Technique: Contiguous axial CT images of the head were acquired from the base of the skull to the vertex without intravenous contrast administration. Images were viewed in brain, subdural and bone windows. Automated dose lowering techniques and/or adjustment according to patient size were utilized for this exam. Comparison: Comparison is made to CT head 09/08/2016 Findings: Areas of decreased attenuation are present in the periventricular and subcortical white matter bilaterally consistent with small vessel ischemic disease. Generalized cerebral atrophy with commensurate enlargement of the ventricles, sulci, and cisterns is also present. There is no acute intracranial hemorrhage or evidence of acute territorial infarction. No shift of the midline structures, mass effect, or extra-axial abnormalities are shown. Atherosclerotic calcifications are present in the intracranial segments of the internal carotid arteries. Focal encephalomalacia in the left occipital region is unchanged from prior exam. Imaged portions of the paranasal sinuses and mastoid air cells are clear. The orbits appear normal. There are no acute fractures of the calvaria or scalp swelling. Impression: No acute intracranial hemorrhage, no evidence of acute territorial infarction or other acute intracranial disease process. ACT 112: Negative or not required by law. Electronically signed by: Victor M Bran M.D. 04/09/2021 2:28 PM ECG Additional Comments: Vent. Rate : 153 BPM Atrial Rate : 136 BPM P-R Int : 000 ms QRS Dur : 088 ms QT Int : 290 ms P-R-T Axes : 000 -05 -24 degrees QTc Int : 463 ms Atrial fibrillation with rapid ventricular response Diffuse Nonspecific ST and T wave abnormality Abnormal ECG When compared with ECG of 05-SEP-2016 15:34, T wave inversion less evident in Lateral leads Code Status & VTE Plan Code Status Full code- discussed with pt at bedside Supervising Physician Co-Signing Physician Notes Patient is a 75-year-old male with multiple comorbidities presents with history of generalized weakness, worsening confusion. Patient has significant hearing impairment, dementia and unable to provide much history. Most of the history is obtained from old records, patient's family. Apparently patient has not been taking his home medications since about 1 week duration. He was found to be in A. fib RVR while in ED. INR is therapeutic at 2.5. Also noted poor appetite lately. Urinalysis suggestive of possible UTI. Review HPI for complete details of presentation. On exam patient is thin, chronically appearing, no apparent distress, normocephalic atraumatic, EOMI, normal breath sounds, clear to auscultation, irregularly irregular rhythm, tachycardic,+ murmur, no pedal edema, abdomen soft, nontender, normal bowel sounds, alert, awake, grossly no focal deficits, significant hearing impairment. Patient is admitted for management of A. fib RVR, possible acute metabolic encephalopathy secondary to UTI. Resume home digoxin. Will start on metoprolol. Obtain echo. Consulted cardiology. Continue Coumadin for anticoagulation. Monitor INR. Agree with continuing Rocephin for UTI. I personally reviewed the record. Patient is interviewed and examined at bedside. Patient's care is coordinated with Arlen Sevilla PA-C. Please refer to the documentation above for details of patient's presentation and for discussion of other issues.
[2021-04-09] MEDS: METOPROLOL TARTRATE 25 MG TAB PO SCH ×2 (17:44→23:06)
[2021-04-09] MEDS: DIGOXIN 0.125 MG TAB PO SCH (17:44)
[2021-04-09] MEDS ORDERED: LORazepam 0.5 MG TAB PO STA (18:31)
[2021-04-09] MEDS ORDERED: ONDANSETRON INJ 2 MG/ML 2 ML VIAL IV PRN (19:04)
[2021-04-09] MEDS ORDERED: WARFARIN SOD 2.5 MG TAB PO SCH (19:15)
[2021-04-09] MEDS: METOPROLOL TARTRATE 1 MG/ML VIAL IV PRN (21:19)
[2021-04-10] MEDS ORDERED: POTASSIUM CHLORIDE CRTAB 20 MEQ TABCR PO STA (00:37)
[2021-04-10] MEDS ORDERED: SODIUM CHLORIDE 0.9% 500 ML IV ONE (00:39)
[2021-04-10] MEDS ORDERED: dilTIAZem HCl 5 MG/ML 5 ML VIAL IV STA (00:39)
[2021-04-10] MEDS ORDERED: DIGOXIN 250 MCG in SYRINGE 9 ML IV ONE (00:48)
[2021-04-10] MEDS ORDERED: OLANZapine 10 MG/2.1 ML SDV IM PRN (00:48)
[2021-04-10] MEDS: MELATONIN 3 MG TAB PO PRN ×2 (01:08→23:58)
[2021-04-10] MEDS: METOPROLOL TARTRATE 25 MG TAB PO SCH ×4 (05:31→23:54)
[2021-04-10 06:52] LABS: Hematocrit (blood only) 36.2 % (42-52); Hemoglobin 11.9 g/dL (14.0-18.0); Mean Corpuscular Hemoglobin 30.7 pg (25-34); Mean Corpuscular Hgb Conc 32.9 g/dL (32-36); Mean Corpuscular Volume 93.3 fL (80-100); Platelet Count 164 K/uL (130-400); RDW Coefficient of Variation 13.4 % (11.5-14.5); RDW Standard Deviation 45.3 fL (36.4-46.3); Red Blood Count 3.88 M/uL (4.7-6.1); White Blood Count 5.96 K/uL (4.8-10.8)
[2021-04-10 07:16] LABS: INR 2.8 (0.9-1.1); Partial Thromboplastin Ratio 1.9; Prothrombin Time 26.4 Seconds (9.0-12.0)
[2021-04-10 07:27] LABS: Albumin Globulin Ratio 1.5 (0.9-2); Albumin Level 3.4 gm/dl (3.4-5.0); BUN Creatinine Ratio 16.2 (10-20); Bilirubin,Total 1.4 mg/dl (0.2-1.0); Calcium 8.4 mg/dl (8.5-10.1); Creatinine Clr Calc Pharmacy 89.1 ml/min; Est GFR (African American) 109.8 ml/min; Est GFR (Non-African American) 94.7 ml/min; Globulin 2.3 gm/dl (2.5-4.0); Magnesium 1.8 mg/dl (1.7-2.4); Phosphorus 2.5 mg/dl (2.5-4.9); Potassium 3.8 mmol/L (3.5-5.1); Total Protein 5.7 gm/dl (6.0-8.3)
[2021-04-10 07:30] LABS: Partial Thromboplastin Time 50.9 Seconds (21.0-31.0)
[2021-04-10] MEDS: MULTIVITAMIN TAB PO SCH (07:52)
[2021-04-10] MEDS: PANTOprazole 40 MG TAB PO SCH (07:52)
[2021-04-10] MEDS: DIGOXIN 0.125 MG TAB PO SCH (07:52)
[2021-04-10] MEDS: METOPROLOL TARTRATE 1 MG/ML VIAL IV PRN ×2 (08:33→17:34)
[2021-04-10] MEDS ORDERED: lisinopril 5 MG TAB PO SCH (09:00)
[2021-04-10] MEDS ORDERED: Flu Vaccine-High Dose (Fluzone-HD) PF 65+ 0.7mL SYR IM ONE (09:00)
[2021-04-10 09:30] LABS: Estimated Average Glucose 111 mg/dl; Hemoglobin A1C 5.5 % (4.5-5.6)
--- NOTE | 2021-04-10 10:15 | Cardiology Consultation ---
Date of Consultation April 10, 2021 Assessment & Plan (1) Atrial fibrillation: (2) UTI (urinary tract infection): (3) HLD (hyperlipidemia): (4) HTN (hypertension): (5) H/O mechanical aortic valve replacement: (6) CAD (coronary artery disease): (7) Atrial fibrillation with RVR: Urinary tract infection. Patient notably admitted to this facility in August 2016 with E. coli bacteremia. Blood and urine cultures pending. As per hospitalist. Back pain. Imaging with numerous thoracolumbar compression deformities. As per hospitalist. Atrial fibrillation. Chronic. Rates uncontrolled due to acute illness, possibly missed medication(s). Patient chronically anticoagulated due to the atrial fibrillation as well as mechanical valve in the aortic position. Recommend holding lisinopril to allow for titration of beta-shiloh therapy, metoprolol tartrate, for additional heart rate control. Continue digoxin. Continue anticoagulation. Status post April 30, 2006 aortic valve replacement (On-X MECHANICAL valve). Normal prosthetic aortic valve gradient, trace prosthetic aortic valve regurgitation. OK. Continue Coumadin anticoagulation. ASCVD. No reported angina. Troponin negative. Recommend appropriate medical management including utilization of aspirin and statin Hypertension. Controlled. See above. Dyslipidemia. LDL cholesterol 82 mg/deciliter on April 10, 2021. AST 13, ALT 11, alk phos 86. Total bilirubin elevated at 1.4, improved. Recommend utilization of statin therapy, targeting an optimal LDL goal of less than 70 mg/deciliter, perhaps with atorvastatin 10-20 mg/day after the more pressing issues are addressed. Supervising Physician Attestation: I have personally performed a history and physical examination on the patient. I agree with the physician payroll assistant's findings and plan as documented with the following additions. Subjective: Patient hard of hearing, and confused. Telemetry reveals ongoing atrial fibrillation with rapid ventricular rate in the range of 120-130 bpm. With assistance, patient walked to the bathroom and voided spontaneously just prior to my assessment. Exam: Irregular rhythm, rapid response No edema Data: INR 2.8 Assessment and Plan: Presumed UTI Chronic atrial fibrillation, elevated rate History of mechanical AVR -Anticipate ventricular rates will improve with improvement in infection. -Continue current medications for now as documented above. -INR goal 2.5, continue Coumadin. Avni Cross, History of Present Illness Reason for Consultation: Atrial fibrillation with a rapid ventricular response Requesting Physician: Larisa Attending Physician: Larisa History of Present Illness 75-year-old male admitted to [facility] on April 09, 2021, presenting to the ER from home due to concerns for a urinary tract infection with weakness, decreased appetite, acute on chronic confusion, EKG revealed atrial fibrillation with a rapid ventricular response leading to cardiology consultation. Patient with known chronic atrial fibrillation ASCVD, and aortic valve disease status post April 30, 2006 aortic valve replacement with a #21 On-X mechanical valve by Dr. Gao in [place], [place]. Anticoagulation chronically followed by the [facility]. Additional history includes hypertension, dyslipidemia, and GERD. Last outpatient cardiology evaluation was with Dr. Luna on July 26, 2017. The patient is not a reliable source of information. Past Medical and Surgical History: ASCVD. March 04, 2016 Cardiac Catheterization at [facility] revealed a normal left main, nonobstructive LAD system, nondominant RCA with an 80% proximal lesion, and a large codominant left circumflex with a 40-50% first OM lesion and an 80% ostial OM3 lesion. Repeat coronary angiography at [facility] on 01/19/2007 revealed mild nonobstructive coronary artery disease including a 25% LAD stenosis, nondominant RCA free of obstructive disease, and a dominant LCX with a 25% LCX lesion between the OM1 and OM2. Severe aortic insufficiency status post April 30, 2006 aortic valve replacement with a #21 On-X valve at [facility]. Postoperative course complicated by anemia and a large pericardial effusion requiring emergent drainage Chronic atrial fibrillation Carotid artery disease Hypertension Dyslipidemia Chronic back pain, cervical disc disease, spinal stenosis Nephrolithiasis Cholelithiasis Diverticulosis BPH Family History: Father with an ID at 63. Brother with an ID at 63. Another brother with an ID at 56. Social History: Reformed smoker, 20 pack year history. Chronic smokeless tobacco user. No illegal drug use. 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 Previously enjoyed [employer]. ROS: Followed by the [facility]. Hard of hearing. No appetite. Chronic back pain following remote fall. See below. Allergies Allergy/AdvReac Type Severity Reaction Status Date / Time No Known Allergies Allergy Mild Verified 04/09/21 15:48 Home Medications Medication Instructions Recorded Confirmed Type digoxin 125 mcg (0.125 mg) tablet 125 mcg PO DAILY 04/09/21 04/09/21 History lisinopril 5 mg tablet 5 mg PO DAILY 04/09/21 04/09/21 History multivitamin 1 tab PO DAILY 04/09/21 04/09/21 History omeprazole 20 mg capsule,delayed 20 mg PO DAILY 04/09/21 04/09/21 History release warfarin 5 mg tablet 5 mg PO DIRECTED 04/09/21 04/09/21 History Patient History Medical History Gram negative septicemia Family History Other Family history non-contributory Social History Smoking Status: Smoker, status unknown Preferred Language: Danish Communication Ability: Effective 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 Physical Exam Physical Exam: General: Alert to person, not to place or time. No acute distress HENT: Normocephalic. Atraumatic. Eyes: PER. Conjunctiva pink, sclera clear. Neck: No carotid bruits. No JVD. No HJR. Heart: Irregularly irregular around 110 bpm. Soft systolic murmur. No rub. PMI is nondisplaced. Lungs: Clear to auscultation anteriorly and laterally. Abdomen: +BS. Soft. Nontender. No masses or organomegaly. Extremities: No clubbing, cyanosis, or edema. Neurologic: No focal deficits. Demented. Pulses: radial=2/4, posterior tibial=0/4. Results & Data ([facility]) Vital Signs (Past 12 Hours) Vital Signs Temp Pulse Pulse Resp BP BP BP 04/10/21 08:33 144 H 123/66 04/10/21 07:52 100 H 04/10/21 07:30 36.6 C 100 H 20 123/66 04/10/21 07:26 112 H 04/10/21 05:32 90 102/64 01/13/22 03:32 36.6 C 63 16 112/73 04/10/21 02:46 101 H 04/10/21 01:47 94 H 110/67 04/10/21 01:28 86 107/61 04/09/21 22:49 36.5 C 131 H 20 116/72 Pulse Ox 04/10/21 08:33 04/10/21 07:52 04/10/21 07:30 97 04/10/21 07:26 04/10/21 05:32 04/10/21 03:32 98 04/10/21 02:46 04/10/21 01:47 04/10/21 01:28 04/09/21 22:49 100 Laboratory Results Laboratory Results - last 24 hr 04/09/21 04/09/21 04/09/21 11:55 11:55 11:55 WBC 8.45 RBC 4.73 Hgb 14.7 Hct 43.6 MCV 92.2 MCH 31.1 MCHC 33.7 RDW Std Deviation 44.1 RDW Coeff of Terrence 13.2 Plt Count 212 MPV 13.1 H Immature Gran % (Auto) 0.2 Neut % (Auto) 69.1 Lymph % (Auto) 17.4 [place] % (Auto) 11.1 Eos % (Auto) 1.8 Baso % (Auto) 0.4 Neut # (Auto) 5.84 Lymph # (Auto) 1.47 [place] # (Auto) 0.94 H Eos # (Auto) 0.15 Baso # (Auto) 0.03 Immature Gran # (Auto) 0.02 PT INR APTT PTT Ratio Sodium 138 Potassium 3.8 Chloride 100 Carbon Dioxide 27 Anion Gap 11 BUN 13 Creatinine 0.98 Est Cr Clr Drug Dosing Not Reportable Est GFR ( Amer) 88.3 Est GFR (Non-Af Amer) 76.2 BUN/Creatinine Ratio 13.3 Glucose 116 H Estimat Average Glucose Hemoglobin A1c Lactate Calcium 9.3 Phosphorus 3.2 Magnesium 2.0 Total Bilirubin 2.4 H AST 17 ALT 15 Alkaline Phosphatase 112 H Troponin I 0.03 Total Protein 7.2 Albumin 4.1 Globulin 3.1 Albumin/Globulin Ratio 1.3 Triglycerides Cholesterol LDL Cholesterol, Calc VLDL Cholesterol, Calc HDL Cholesterol Cholesterol/HDL Ratio Lipase 31 Procalcitonin TSH 3.823 Urine Color Urine Appearance Urine pH Ur Specific [place] Urine Protein Urine Glucose (UA) Urine Ketones Urine Blood Urine Nitrite Urine Bilirubin Urine Urobilinogen Ur Leukocyte Esterase Urine WBC (Auto) Urine RBC (Auto) U Hyaline Cast (Auto) U Epithel Cells (Auto) Urine Bacteria (Auto) Urine Yeast Digoxin SARS-CoV-2, RNA, NAAT 04/09/21 04/09/21 04/09/21 11:55 12:15 15:57 WBC RBC Hgb Hct MCV MCH MCHC RDW Std Deviation RDW Coeff of Terrence Plt Count MPV Immature Gran % (Auto) Neut % (Auto) Lymph % (Auto) [place] % (Auto) Eos % (Auto) Baso % (Auto) Neut # (Auto) Lymph # (Auto) [place] # (Auto) Eos # (Auto) Baso # (Auto) Immature Gran # (Auto) PT 24.0 H INR 2.5 H APTT PTT Ratio Sodium Potassium Chloride Carbon Dioxide Anion Gap BUN Creatinine Est Cr Clr Drug Dosing Est GFR ( Amer) Est GFR (Non-Af Amer) BUN/Creatinine Ratio Glucose Estimat Average Glucose Hemoglobin A1c Lactate Calcium Phosphorus Magnesium Total Bilirubin AST ALT Alkaline Phosphatase Troponin I Total Protein Albumin Globulin Albumin/Globulin Ratio Triglycerides Cholesterol LDL Cholesterol, Calc VLDL Cholesterol, Calc HDL Cholesterol Cholesterol/HDL Ratio Lipase Procalcitonin Cancelled TSH Urine Color Urine Appearance Urine pH Ur Specific [place] Urine Protein Urine Glucose (UA) Urine Ketones Urine Blood Urine Nitrite Urine Bilirubin Urine Urobilinogen Ur Leukocyte Esterase Urine WBC (Auto) Urine RBC (Auto) U Hyaline Cast (Auto) U Epithel Cells (Auto) Urine Bacteria (Auto) Urine Yeast Digoxin SARS-CoV-2, RNA, NAAT NEGATIVE 04/09/21 04/09/21 04/09/21 15:57 17:18 Unknown WBC RBC Hgb Hct MCV MCH MCHC RDW Std Deviation RDW Coeff of Terrence Plt Count MPV Immature Gran % (Auto) Neut % (Auto) Lymph % (Auto) [place] % (Auto) Eos % (Auto) Baso % (Auto) Neut # (Auto) Lymph # (Auto) [place] # (Auto) Eos # (Auto) Baso # (Auto) Immature Gran # (Auto) PT INR APTT PTT Ratio Sodium Potassium Chloride Carbon Dioxide Anion Gap BUN Creatinine Est Cr Clr Drug Dosing Est GFR ( Amer) Est GFR (Non-Af Amer) BUN/Creatinine Ratio Glucose Estimat Average Glucose Hemoglobin A1c Lactate 1.0 Calcium Phosphorus Magnesium Total Bilirubin AST ALT Alkaline Phosphatase Troponin I Total Protein Albumin Globulin Albumin/Globulin Ratio Triglycerides Cholesterol LDL Cholesterol, Calc VLDL Cholesterol, Calc HDL Cholesterol Cholesterol/HDL Ratio Lipase Procalcitonin < 0.05 TSH Urine Color Dark Yellow Urine Appearance Turbid A Urine pH 5.0 Ur Specific [place] 1.030 Urine Protein 1+ H Urine Glucose (UA) Negative Urine Ketones Trace H Urine Blood 3+ H Urine Nitrite Positive A Urine Bilirubin 1+ H Urine Urobilinogen Negative Ur Leukocyte Esterase 2+ H Urine WBC (Auto) >30 H Urine RBC (Auto) 5-10 H U Hyaline Cast (Auto) 0 U Epithel Cells (Auto) >30 H Urine Bacteria (Auto) 4+ H Urine Yeast Not Reportable Digoxin SARS-CoV-2, RNA, NAAT 04/10/21 04/10/21 04/10/21 06:07 06:07 06:07 WBC 5.96 RBC 3.88 L Hgb 11.9 L Hct 36.2 L MCV 93.3 MCH 30.7 MCHC 32.9 RDW Std Deviation 45.3 RDW Coeff of Terrence 13.4 Plt Count 164 MPV 13.0 H Immature Gran % (Auto) Neut % (Auto) Lymph % (Auto) [place] % (Auto) Eos % (Auto) Baso % (Auto) Neut # (Auto) Lymph # (Auto) [place] # (Auto) Eos # (Auto) Baso # (Auto) Immature Gran # (Auto) PT 26.4 H INR 2.8 H APTT 50.9 H* PTT Ratio 1.9 Sodium 136 Potassium 3.8 Chloride 104 Carbon Dioxide 25 Anion Gap 7 BUN 11 Creatinine 0.68 D Est Cr Clr Drug Dosing 89.1 Est GFR ( Amer) 109.8 Est GFR (Non-Af Amer) 94.7 BUN/Creatinine Ratio 16.2 Glucose 76 Estimat Average Glucose Hemoglobin A1c Lactate Calcium 8.4 L Phosphorus 2.5 Magnesium 1.8 Total Bilirubin 1.4 H AST 13 ALT 11 Alkaline Phosphatase 86 Troponin I Total Protein 5.7 L D Albumin 3.4 Globulin 2.3 L Albumin/Globulin Ratio 1.5 Triglycerides 65 Cholesterol 120 LDL Cholesterol, Calc 82 VLDL Cholesterol, Calc 13 HDL Cholesterol 25 Cholesterol/HDL Ratio 5 Lipase Procalcitonin TSH Urine Color Urine Appearance Urine pH Ur Specific [place] Urine Protein Urine Glucose (UA) Urine Ketones Urine Blood Urine Nitrite Urine Bilirubin Urine Urobilinogen Ur Leukocyte Esterase Urine WBC (Auto) Urine RBC (Auto) U Hyaline Cast (Auto) U Epithel Cells (Auto) Urine Bacteria (Auto) Urine Yeast Digoxin SARS-CoV-2, RNA, NAAT 04/10/21 04/10/21 06:07 06:07 WBC RBC Hgb Hct MCV MCH MCHC RDW Std Deviation RDW Coeff of Terrence Plt Count MPV Immature Gran % (Auto) Neut % (Auto) Lymph % (Auto) [place] % (Auto) Eos % (Auto) Baso % (Auto) Neut # (Auto) Lymph # (Auto) [place] # (Auto) Eos # (Auto) Baso # (Auto) Immature Gran # (Auto) PT INR APTT PTT Ratio Sodium Potassium Chloride Carbon Dioxide Anion Gap BUN Creatinine Est Cr Clr Drug Dosing Est GFR ( Amer) Est GFR (Non-Af Amer) BUN/Creatinine Ratio Glucose Estimat Average Glucose 111 Hemoglobin A1c 5.5 Lactate Calcium Phosphorus Magnesium Total Bilirubin AST ALT Alkaline Phosphatase Troponin I Total Protein Albumin Globulin Albumin/Globulin Ratio Triglycerides Cholesterol LDL Cholesterol, Calc VLDL Cholesterol, Calc HDL Cholesterol Cholesterol/HDL Ratio Lipase Procalcitonin TSH Urine Color Urine Appearance Urine pH Ur Specific [place] Urine Protein Urine Glucose (UA) Urine Ketones Urine Blood Urine Nitrite Urine Bilirubin Urine Urobilinogen Ur Leukocyte Esterase Urine WBC (Auto) Urine RBC (Auto) U Hyaline Cast (Auto) U Epithel Cells (Auto) Urine Bacteria (Auto) Urine Yeast Digoxin 1.1 SARS-CoV-2, RNA, NAAT Diagnostic Findings March 04, 2006 coronary angiography ([place]): Large, nonobstructive LAD, dominant LCX with a 40-50% first OM stenosis and an 80% 3rd OM stenosis, small nondominant sclerotic RCA with 80% proximal stenosis, 2-3+ calcification, mildly reduced LV systolic function with moderate pulmonary hypertension EKG on presentation revealed atrial fibrillation with a rapid ventricular response (153 bpm) with diffuse nonspecific ST and T wave abnormality. QTc 463 ms. Continuous telemetry monitoring reveals (chronic) atrial fibrillation with a rapid ventricular response, currently with heart rates in the 120s. April 10, 2021 TTE Interpretation Summary ([facility], Dr. Cross): Atrial fibrillation with mildly elevated ventricular rates were present during the echocardiogram. Mild concentric LVH. Mildly dilated left atrium. Septal motion consistent with postoperative state. Ejection fraction 50 to 55%. Mechanical aortic valve. Trace prosthetic aortic valve regurgitation. Gradient normal for this prosthetic aortic valve. Moderate mitral regurgitation. Doppler findings are not suggestive of pulmonary hypertension. Compared to the prior study performed on September 08, 2016, atrial fibrillation is now present, moderate mitral regurgitation is now present. (1) UTI (urinary tract infection) Hematuria presence: without hematuria Urinary tract infection type: site unspecified Qualified Code(s): N39.0 - Urinary tract infection, site not specified
[2021-04-10] MEDS: cefTRIAXone SODIUM 1,000 MG in DEXTROSE 5% 50 ML IV SCH (15:00)
[2021-04-10] MEDS: WARFARIN SOD 1 MG TAB PO SCH (16:40)
--- NOTE | 2021-04-10 17:48 | Hospitalist Progress Note ---
Date of Service April 10, 2021 Assessment & Plan (1) Atrial fibrillation with RVR: Plan: Afib RVR Normal TSH Continue metoprolol 25 mg every 6 hours IV Lopressor as needed Also on digoxin Appreciate cardiology input On warfarin for anticoagulation Monitor INR: 2.8 (2) CAD (coronary artery disease): Plan: -Continue current medications (3) H/O mechanical aortic valve replacement: Plan: - Hx of such in 2005 at OR in [place] - coumadin as above (4) UTI (urinary tract infection): Plan: Urine culture growing gram-negative bacilli Blood cultures no growth to date Continue Rocephin Day #2 Acute Metabolic Encephalopathy Likely due to UTI in setting of Dementia -CT Head:No acute intracranial hemorrhage, no evidence of acute territorial infarction or other acute intracranial disease process. Reorient frequently (5) HTN (hypertension): Plan: - Continue medications as above (6) Back pain: Plan: Chronic No new trauma or injury H/O fall 8 years ago from 10 feet high and landed on concrete. Uses a walker/cane at baseline Does not take chronic pain meds Follow-up as outpatient (7) HLD (hyperlipidemia): Plan: - not on statin therapy DVT Px: Coumadin CODE STATUS Full Code Admission and Anticipated Discharge Date Admission Date: April 09, 2021 Subjective Patient is seen and examined at bedside Difficult to obtain history given hearing impairment and dementia Sitter at bedside Tachycardic on monitor Confused but no agitation per production manager of Systems Review of Systems: All systems reviewed & are unremarkable except as noted in Subjective Physical Exam Physical Exam: Physical Exam: Vitals signs as noted above General Appearance:Thin, no apparent distress Head: normocephalic, Atraumatic Eyes: normal inspection, EOMI Neck: supple, Trachea midline Respiratory/Chest: Normal breath sounds, CTA, No accessory muscle use Cardiovascular: Irregularly irregular, tachycardia, +murmur Abdomen/GI:Soft, Non tender, Bowel sounds present Extremities/Musculoskeletal:normal inspection, no edema Neurologic/Psych:grossly no focal neurological deficits, +Dementia, Hearing impairment Skin: normal color, warm Results & Data Results & Data ([facility]) Vital Signs (Past 12 Hours) Vital Signs Temp Pulse Pulse Resp BP BP Pulse Ox 04/10/21 17:34 145 H 109/61 04/10/21 15:06 110 H 04/10/21 15:00 87 20 109/61 97 04/10/21 11:02 36.5 C 121 H 20 105/77 96 04/10/21 08:33 144 H 123/66 04/10/21 07:52 100 H 04/10/21 07:30 36.6 C 100 H 20 123/66 97 04/10/21 07:26 112 H Laboratory Results Short CBC 04/10/21 Range/Units 06:07 WBC 5.96 (4.8-10.8) K/uL Hgb 11.9 L (14.0-18.0) g/dL Hct 36.2 L (42-52) % Plt Count 164 (130-400) K/uL BMP 04/10/21 06:07 Sodium 136 Potassium 3.8 Chloride 104 Carbon Dioxide 25 BUN 11 Creatinine 0.68 D Glucose 76 Calcium 8.4 L Liver Function 04/10/21 Range/Units 06:07 Total Bilirubin 1.4 H (0.2-1.0) mg/dl AST 13 (13-39) U/L ALT 11 (7-52) U/L Alkaline Phosphatase 86 (34-104) U/L Albumin 3.4 (3.4-5.0) gm/dl (1) UTI (urinary tract infection) Hematuria presence: without hematuria Urinary tract infection type: site unspecified Qualified Code(s): N39.0 - Urinary tract infection, site not specified
[2021-04-11] MEDS: METOPROLOL TARTRATE 25 MG TAB PO SCH ×4 (05:28→23:39)
[2021-04-11 07:26] LABS: Hematocrit (blood only) 36.4 % (42-52); Mean Corpuscular Hemoglobin 30.7 pg (25-34); Mean Corpuscular Volume 93.1 fL (80-100); Mean Platelet Volume 12.4 fL (7.4-10.4); Platelet Count 169 K/uL (130-400); RDW Coefficient of Variation 13.5 % (11.5-14.5); RDW Standard Deviation 45.7 fL (36.4-46.3); Red Blood Count 3.91 M/uL (4.7-6.1); White Blood Count 5.38 K/uL (4.8-10.8)
[2021-04-11 07:34] LABS: INR 2.8 (0.9-1.1); Prothrombin Time 26.6 Seconds (9.0-12.0)
[2021-04-11 07:52] LABS: Calcium 8.3 mg/dl (8.5-10.1); Creatinine Clr Calc Pharmacy 80.6 ml/min; Est GFR (African American) 105.5 ml/min; Potassium 3.6 mmol/L (3.5-5.1)
[2021-04-11] MEDS: MULTIVITAMIN TAB PO SCH (08:30)
[2021-04-11] MEDS: PANTOprazole 40 MG TAB PO SCH (08:30)
--- NOTE | 2021-04-11 09:39 | Cardiology Progress Note ---
Date of Service April 11, 2021 Assessment & Plan (1) Atrial fibrillation: (2) UTI (urinary tract infection): (3) HLD (hyperlipidemia): (4) HTN (hypertension): (5) H/O mechanical aortic valve replacement: (6) CAD (coronary artery disease): (7) Atrial fibrillation with RVR: Plan: E. coli urinary tract infection. As per hospitalist. Back pain. Imaging with numerous thoracolumbar compression deformities. As per hospitalist. Chronic atrial fibrillation. Rates uncontrolled due to the acute illness and noncompliance with medication(s). Continue to hold lisinopril. Titrate beta- shiloh therapy as blood pressure allows. Suspect metoprolol succinate will be better tolerated, perhaps requiring 100-150 mg/day in two divided doses. Continue digoxin. Patient chronically anticoagulated with Coumadin due to the atrial fibrillation as well as mechanical valve in the aortic position. Continue Coumadin anticoagulation. Wide complex tachycardia. 6 beat run. Asymptomatic. Ejection fraction preserved. Supplement potassium and magnesium. Titrate beta-shiloh therapy as above. Continue telemetry. Status post April 30, 2006 aortic valve replacement (On-X MECHANICAL valve). Normal prosthetic aortic valve gradient, trace prosthetic aortic valve regurgi tation via resting echocardiography this admission. Continue Coumadin anticoagulation. Continue lifelong SBE prophylaxis. ASCVD. No angina. Troponin negative. Recommend appropriate medical management including utilization of aspirin (81 mg/day) and statin (see below) Dyslipidemia. LDL cholesterol 82 mg/deciliter on April 10, 2021. AST 13, ALT 11, alk phos 86. Total bilirubin elevated at 1.4, improved. Recommend utilization of statin therapy, targeting an optimal LDL goal of less than 70 mg/deciliter, perhaps with atorvastatin 10-20 mg/day after the more pressing issues are addressed. Supervising Physician Attestation: I have personally performed a history and physical examination on the patient. I agree with the physician data assistant's findings and plan as documented with the following additions. Subjective: Patient resting comfortably Exam: Irregular rhythm Data: Telemetry reveals ongoing atrial fibrillation with rates in the range of 90 to 99 bpm. 6 beat run of wide-complex tachycardia consistent with nonsustained ventricular tachycardia observed at 4:15 AM with spontaneous onset sinus rhythm Assessment and Plan: Chronic atrial fibrillation, elevated ventricular rate in the setting of E. coli urinary tract infection 6 beat run of NSVT History of mechanical AVR -Continue Coumadin, metoprolol, digoxin. Supplement potassium DVT prophylaxis: On full dose anticoagulation with Coumadin. Avni Cross DO Admission and Anticipated Discharge Date Admission Date: April 09, 2021 Subjective Patient seen and examined. Chart, medications, and telemetry reviewed. No reported chest pain, palpitations, shortness of breath, cough, orthopnea, PND, edema, dizziness, near syncope, melena, or hematochezia. INR 2.8 Telemetry: Atrial fibrillation ranging from the 90's to 120 bpm. One six beat run of wide complex tachycardia at 4:15 AM. Review of Systems Review of Systems: A complete and accurate review of systems was unable to be obtained (acute illness, dementia) Physical Exam Physical Exam: General: Alert to person, not to place or time. No acute distress HENT: Normocephalic. Atraumatic. Eyes: PER. Conjunctiva pink, sclera clear. Neck: No carotid bruits. No JVD. No HJR. Heart: Irregularly irregular around 100 bpm. Soft systolic murmur. No rub. PMI is nondisplaced. Lungs: Clear to auscultation anteriorly and laterally. Abdomen: +BS. Soft. Nontender. No masses or organomegaly. Extremities: No clubbing, cyanosis, or edema. Neurologic: No focal deficits. Demented. Pulses: radial=2/4, posterior tibial=0/4. Results & Data ([facility]) Vital Signs (Past 12 Hours) Vital Signs Temp Pulse Pulse Resp BP BP Pulse Ox 04/11/21 08:55 104 H 04/11/21 07:05 36.5 C 102 H 13 96/63 L 97 04/11/21 03:00 36.6 C 130 H 18 112/62 99 04/11/21 00:00 04/10/21 23:50 127 H 04/10/21 22:41 36.6 C 123 H 18 102/60 99 Pulse Ox 04/11/21 08:55 93 04/11/21 07:05 04/11/21 03:00 04/11/21 00:00 99 04/10/21 23:50 04/10/21 22:41 Laboratory Results Laboratory Results - last 24 hr 04/11/21 04/11/21 04/11/21 07:07 07:07 07:07 WBC 5.38 RBC 3.91 L Hgb 12.0 L Hct 36.4 L MCV 93.1 MCH 30.7 MCHC 33.0 RDW Std Deviation 45.7 RDW Coeff of Terrence 13.5 Plt Count 169 MPV 12.4 H PT 26.6 H INR 2.8 H Sodium 139 Potassium 3.6 Chloride 107 Carbon Dioxide 27 Anion Gap 5 BUN 6 Creatinine 0.75 Est Cr Clr Drug Dosing 80.6 Est GFR ( Amer) 105.5 Est GFR (Non-Af Amer) 91.0 BUN/Creatinine Ratio 8.0 L Glucose 83 Calcium 8.3 L (1) UTI (urinary tract infection) Hematuria presence: without hematuria Urinary tract infection type: site unspecified Qualified Code(s): N39.0 - Urinary tract infection, site not specified
[2021-04-11] MEDS ORDERED: POTASSIUM CHLORIDE 10 MEQ TABCR PO ONE (09:53)
[2021-04-11] MEDS: MAGNESIUM OXIDE 400 MG TAB PO SCH (11:12)
[2021-04-11] MEDS: cefTRIAXone SODIUM 1,000 MG in DEXTROSE 5% 50 ML IV SCH (15:25)
[2021-04-11] MEDS: DIGOXIN 0.125 MG TAB PO SCH (15:26)
[2021-04-11] MEDS: WARFARIN SOD 1 MG TAB PO SCH (15:27)
--- NOTE | 2021-04-11 16:26 | Hospitalist Progress Note ---
Date of Service April 11, 2021 Assessment & Plan (1) Atrial fibrillation with RVR: Plan: Afib RVR 6 beats NSVT Normal TSH Continue metoprolol 25 mg every 6 hours IV Lopressor as needed Continue digoxin Appreciate cardiology input Adjust Coumadin dose as needed Monitor INR: 2.8 Monitor electrolytes (2) CAD (coronary artery disease): Plan: -Continue current medications (3) H/O mechanical aortic valve replacement: Plan: - Hx of such in 2005 at OR in [place] - coumadin as above (4) UTI (urinary tract infection): Plan: Urine culture growing E.Coli Blood cultures no growth to date Continue Rocephin Day #3 Acute Metabolic Encephalopathy Likely due to UTI in setting of Dementia -CT Head:No acute intracranial hemorrhage, no evidence of acute territorial infarction or other acute intracranial disease process. Reorient frequently Slowly Improving (5) HTN (hypertension): Plan: - Continue metoprolol Lisinopril on hold (6) Back pain: Plan: Chronic No new trauma or injury H/O fall 8 years ago from 10 feet high and landed on concrete. Uses a walker/cane at baseline Does not take chronic pain meds Follow-up as outpatient (7) HLD (hyperlipidemia): Plan: - not on statin therapy DVT Px: Coumadin CODE STATUS Full Code Admission and Anticipated Discharge Date Admission Date: April 09, 2021 Subjective Patient is seen and examined at bedside Difficult to obtain history given hearing impairment and dementia Mental status seem to be improving Updated patient's family over the phone Urine culture growing E. coli Sitter at bedside Review of Systems Review of Systems: All systems reviewed & are unremarkable except as noted in Subjective Physical Exam Physical Exam: Physical Exam: Vitals signs as noted above General Appearance:Thin, no apparent distress Head: normocephalic, Atraumatic Eyes: normal inspection, EOMI Neck: supple, Trachea midline Respiratory/Chest: Normal breath sounds, CTA, No accessory muscle use Cardiovascular: Irregularly irregular, tachycardia, +murmur Abdomen/GI:Soft, Non tender, Bowel sounds present Extremities/Musculoskeletal:normal inspection, no edema Neurologic/Psych:grossly no focal neurological deficits, +Dementia, Hearing impairment Skin: normal color, warm Results & Data Results & Data ([facility]) Vital Signs (Past 12 Hours) Vital Signs Temp Pulse Pulse Resp BP Pulse Ox Pulse Ox 04/11/21 15:26 94 H 04/11/21 11:06 36.4 C L 93 H 13 110/75 93 04/11/21 08:55 104 H 93 04/11/21 07:05 36.5 C 102 H 13 96/63 L 97 Laboratory Results Short CBC 04/11/21 Range/Units 07:07 WBC 5.38 (4.8-10.8) K/uL Hgb 12.0 L (14.0-18.0) g/dL Hct 36.4 L (42-52) % Plt Count 169 (130-400) K/uL BMP 04/11/21 07:07 Sodium 139 Potassium 3.6 Chloride 107 Carbon Dioxide 27 BUN 6 Creatinine 0.75 Glucose 83 Calcium 8.3 L (1) UTI (urinary tract infection) Hematuria presence: without hematuria Urinary tract infection type: site unspecified Qualified Code(s): N39.0 - Urinary tract infection, site not specified
[2021-04-11] MEDS: MELATONIN 3 MG TAB PO PRN (23:39)
[2021-04-12] MEDS: METOPROLOL TARTRATE 25 MG TAB PO SCH ×4 (06:05→23:28)
[2021-04-12 06:19] LABS: Hematocrit (blood only) 38.3 % (42-52); Hemoglobin 12.7 g/dL (14.0-18.0); Mean Corpuscular Hemoglobin 30.8 pg (25-34); Mean Corpuscular Hgb Conc 33.2 g/dL (32-36); Mean Platelet Volume 12.9 fL (7.4-10.4); Platelet Count 171 K/uL (130-400); RDW Coefficient of Variation 13.4 % (11.5-14.5); RDW Standard Deviation 45.3 fL (36.4-46.3); Red Blood Count 4.12 M/uL (4.7-6.1); White Blood Count 5.61 K/uL (4.8-10.8)
[2021-04-12 06:37] LABS: INR 2.1 (0.9-1.1); Prothrombin Time 20.3 Seconds (9.0-12.0)
[2021-04-12 06:46] LABS: BUN Creatinine Ratio 10.6 (10-20); Calcium 8.3 mg/dl (8.5-10.1); Creatinine Clr Calc Pharmacy 89.2 ml/min; Est GFR (African American) 111.2 ml/min; Est GFR (Non-African American) 95.9 ml/min; Potassium 3.6 mmol/L (3.5-5.1)
[2021-04-12] MEDS: PANTOprazole 40 MG TAB PO SCH (08:41)
[2021-04-12] MEDS: MAGNESIUM OXIDE 400 MG TAB PO SCH (08:41)
[2021-04-12] MEDS: MULTIVITAMIN TAB PO SCH (08:41)
[2021-04-12] MEDS ORDERED: POTASSIUM CHLORIDE CRTAB 20 MEQ TABCR PO ONE (08:52)
[2021-04-12] MEDS: ACETAMINOPHEN 325 MG TAB PO PRN (11:55)
--- NOTE | 2021-04-12 13:41 | Cardiology Progress Note ---
Date of Service April 12, 2021 Assessment & Plan (1) Atrial fibrillation: (2) UTI (urinary tract infection): (3) HLD (hyperlipidemia): (4) HTN (hypertension): (5) H/O mechanical aortic valve replacement: (6) CAD (coronary artery disease): (7) Atrial fibrillation with RVR: Plan: Assessment and Plan: Chronic atrial fibrillation, elevated ventricular rate in the setting of E. coli urinary tract infection 6 beat run of NSVT, resolved History of mechanical AVR -Continue Coumadin, metoprolol, digoxin. Supplement potassium DVT prophylaxis: On full dose anticoagulation with Coumadin. INR therapeutic at 2.1 today. Admission and Anticipated Discharge Date Admission Date: April 09, 2021 Review of Systems Review of Systems: Unobtainable due to mental health condition Physical Exam Physical Exam: General: Awake, alert and oriented x 3. No acute distress. HEENT: Normocephalic, atraumatic. Pupils equal, round and reactive to light and accommodation. Extraocular muscles are intact. Anicteric sclera. Moist mucous membranes. Neck: No JVD. No bruit. Cardiovascular: irregularly irregular, unable to appreciate murmur, rub or gallop. Metallic S2 is present Pulmonary: Clear to auscultation bilaterally. No rales, rhonchi, or wheezing. Abdomen: Bowel sounds x 4, soft. No rebound, guarding or tenderness. No organomegaly. Extremities: No clubbing, cyanosis or edema. +2 pedal pulses bilaterally. Skin: Warm and dry. Results & Data ([facility]) Vital Signs (Past 12 Hours) Vital Signs Temp Pulse Pulse Resp BP Pulse Ox Pulse Ox 04/12/21 10:56 36.4 C L 99 H 14 102/70 97 04/12/21 10:28 92 H 04/12/21 08:00 95 04/12/21 07:04 36.5 C 106 H 13 100/56 L 98 04/12/21 04:30 36.7 C 94 H 16 104/70 96 (1) UTI (urinary tract infection) Hematuria presence: without hematuria Urinary tract infection type: site unspecified Qualified Code(s): N39.0 - Urinary tract infection, site not spe cified
[2021-04-12] MEDS: cefTRIAXone SODIUM 1,000 MG in DEXTROSE 5% 50 ML IV SCH (15:58)
[2021-04-12] MEDS: DIGOXIN 0.125 MG TAB PO SCH (15:59)
[2021-04-12] MEDS ORDERED: WARFARIN SOD 5 MG TAB PO SCH (16:00)
--- NOTE | 2021-04-12 18:54 | Hospitalist Progress Note ---
Date of Service April 12, 2021 Assessment & Plan (1) Atrial fibrillation with RVR: Plan: Afib RVR 6 beats NSVT Normal TSH Continue metoprolol 25 mg every 6 hours IV Lopressor as needed Continue digoxin Appreciate cardiology input Adjust Coumadin dose as needed Monitor INR: 2.8>2.1 Monitor electrolytes Will give 5 mg Coumadin today (2) CAD (coronary artery disease): Plan: -Continue current medications (3) H/O mechanical aortic valve replacement: Plan: - Hx of such in 2005 at [place] in [place] - coumadin as above (4) UTI (urinary tract infection): Plan: Urine culture growing E.Coli Blood cultures no growth to date Continue Rocephin Day #4 Acute Metabolic Encephalopathy Likely due to UTI in setting of Dementia -CT Head:No acute intracranial hemorrhage, no evidence of acute territorial infarction or other acute intracranial disease process. Reorient frequently Slowly Improving (5) HTN (hypertension): Plan: - Continue metoprolol Lisinopril on hold (6) Back pain: Plan: Chronic No new trauma or injury H/O fall 8 years ago from 10 feet high and landed on concrete. Uses a walker/cane at baseline Does not take chronic pain meds Follow-up as outpatient (7) HLD (hyperlipidemia): Plan: - not on statin therapy DVT Px: Coumadin CODE STATUS Full Code Admission and Anticipated Discharge Date Admission Date: April 09, 2021 Subjective Patient is seen and examined at bedside Difficult to obtain history given hearing impairment and dementia Intermittently tachycardic, monitor Sitter at bedside No agitation Discussed with patient's family today Review of Systems Review of Systems: All systems reviewed & are unremarkable except as noted in Subjective Physical Exam Physical Exam: Physical Exam: Vitals signs as noted above General Appearance:Thin, no apparent distress Head: normocephalic, Atraumatic Eyes: normal inspection, EOMI Neck: supple, Trachea midline Respiratory/Chest: Normal breath sounds, CTA, No accessory muscle use Cardiovascular: Irregularly irregular, tachycardia, +murmur Abdomen/GI:Soft, Non tender, Bowel sounds present Extremities/Musculoskeletal:normal inspection, no edema Neurologic/Psych:grossly no focal neurological deficits, +Dementia, Hearing impairment Skin: normal color, warm Results & Data Results & Data ([facility]) Vital Signs (Past 12 Hours) Vital Signs Temp Pulse Pulse Resp BP BP Pulse Ox 04/12/21 16:00 04/12/21 15:59 85 04/12/21 14:56 36.4 C L 83 14 101/69 95 04/12/21 10:56 36.4 C L 99 H 14 102/70 97 04/12/21 10:28 92 H 04/12/21 08:00 04/12/21 07:04 36.5 C 106 H 13 100/56 L 98 Pulse Ox 04/12/21 16:00 96 04/12/21 15:59 04/12/21 14:56 04/12/21 10:56 04/12/21 10:28 04/12/21 08:00 95 04/12/21 07:04 Laboratory Results Short CBC 04/12/21 Range/Units 05:18 WBC 5.61 (4.8-10.8) K/uL Hgb 12.7 L (14.0-18.0) g/dL Hct 38.3 L (42-52) % Plt Count 171 (130-400) K/uL BMP 04/12/21 05:18 Sodium 138 Potassium 3.6 Chloride 106 Carbon Dioxide 27 BUN 7 Creatinine 0.66 Glucose 83 Calcium 8.3 L (1) UTI (urinary tract infection) Hematuria presence: without hematuria Urinary tract infection type: site unspecified Qualified Code(s): N39.0 - Urinary tract infection, site not specified
[2021-04-12] MEDS: MELATONIN 3 MG TAB PO PRN (23:28)
[2021-04-13] MEDS: METOPROLOL TARTRATE 25 MG TAB PO SCH ×4 (06:46→23:02)
[2021-04-13] MEDS: ACETAMINOPHEN 325 MG TAB PO PRN (08:07)
[2021-04-13] MEDS: MAGNESIUM OXIDE 400 MG TAB PO SCH (08:07)
[2021-04-13] MEDS: PANTOprazole 40 MG TAB PO SCH (08:07)
[2021-04-13] MEDS: MULTIVITAMIN TAB PO SCH (08:08)
[2021-04-13 08:10] LABS: INR 1.6 (0.9-1.1); Prothrombin Time 15.4 Seconds (9.0-12.0)
[2021-04-13 08:26] LABS: BUN Creatinine Ratio 13.6 (10-20); Calcium 8.7 mg/dl (8.5-10.1); Est GFR (African American) 116.4 ml/min; Est GFR (Non-African American) 100.4 ml/min
--- NOTE | 2021-04-13 13:16 | Cardiology Progress Note ---
Date of Service April 13, 2021 Assessment & Plan (1) Atrial fibrillation: (2) UTI (urinary tract infection): (3) HLD (hyperlipidemia): (4) HTN (hypertension): (5) H/O mechanical aortic valve replacement: (6) CAD (coronary artery disease): (7) Atrial fibrillation with RVR: Plan: Assessment and Plan: Chronic atrial fibrillation, elevated ventricular rate in the setting of E. coli urinary tract infection 6 beat run of NSVT, resolved History of mechanical AVR -Continue Coumadin, metoprolol, digoxin. Supplement potassium DVT prophylaxis: On full dose anticoagulation with Coumadin. INR subherapeutic at 1.6 today. Admission and Anticipated Discharge Date Admission Date: April 09, 2021 Subjective Patient seen and examined, chart reviewed. Remains confused but denying any active complaints. Telemetry reviewed: Atrial fibrillation with rates in the 80s to 100s Review of Systems Review of Systems: Unobtainable due to cognitive status Physical Exam Physical Exam: General: Awake, alert and oriented x 3. No acute distress. HEENT: Normocephalic, atraumatic. Pupils equal, round and reactive to light and accommodation. Extraocular muscles are intact. Anicteric sclera. Moist mucous membranes. Neck: No JVD. No bruit. Cardiovascular: irregularly irregular, unable to appreciate murmur, rub or gallop. Metallic S2 is present Pulmonary: Clear to auscultation bilaterally. No rales, rhonchi, or wheezing. Abdomen: Bowel sounds x 4, soft. No rebound, guarding or tenderness. No organomegaly. Extremities: No clubbing, cyanosis or edema. +2 pedal pulses bilaterally. Skin: Warm and dry. Results & Data ([facility]) Vital Signs (Past 12 Hours) Vital Signs Temp Pulse Resp BP BP Pulse Ox Pulse Ox 04/13/21 11:03 36.6 C 102 H 18 107/80 98 04/13/21 08:00 98 04/13/21 07:11 36.6 C 108 H 20 118/79 98 04/13/21 03:02 36.6 C 110 H 18 102/66 98 (1) UTI (urinary tract infection) Hematuria presence: without hematuria Urinary tract infection type: site unspecified Qualified Code(s): N39.0 - Urinary tract infection, site not specified
--- NOTE | 2021-04-13 14:31 | Hospitalist Progress Note ---
Date of Service April 13, 2021 Assessment & Plan (1) Atrial fibrillation with RVR: Plan: Afib RVR 6 beats NSVT Normal TSH Continue metoprolol 25 mg every 6 hours IV Lopressor as needed Continue digoxin Appreciate cardiology input Adjust Coumadin dose as needed Monitor INR: 2.8>2.1>1.6 Monitor electrolytes Increase Coumadin 7.5 mg today (2) CAD (coronary artery disease): Plan: -Continue current medications (3) H/O mechanical aortic valve replacement: Plan: - Hx of such in 2005 at [place] in [place] - coumadin as above (4) UTI (urinary tract infection): Plan: Urine culture growing E.Coli Blood cultures no growth to date Continue Rocephin Acute Metabolic Encephalopathy Likely due to UTI in setting of Dementia -CT Head:No acute intracranial hemorrhage, no evidence of acute territorial infarction or other acute intracranial disease process. Reorient frequently Slowly Improving (5) HTN (hypertension): Plan: - Continue metoprolol Lisinopril on hold (6) Back pain: Plan: Chronic No new trauma or injury H/O fall 8 years ago from 10 feet high and landed on concrete. Uses a walker/cane at baseline Does not take chronic pain meds Follow-up as outpatient (7) HLD (hyperlipidemia): Plan: - not on statin therapy DVT Px: Coumadin CODE STATUS Full Code Disposition Patient lives alone Case management to help with discharge planning Admission and Anticipated Discharge Date Admission Date: April 09, 2021 Subjective Patient is seen and examined at bedside Difficult to obtain history given hearing impairment and dementia Pleasantly confused intermittently Sitter at bedside States having minimal left-sided lower back pain Offers no other complaints Review of Systems Review of Systems: All systems reviewed & are unremarkable except as noted in Subjective Physical Exam Physical Exam: Physical Exam: Vitals signs as noted above General Appearance:Thin, no apparent distress Head: normocephalic, Atraumatic Eyes: normal inspection, EOMI Neck: supple, Trachea midline Respiratory/Chest: Normal breath sounds, CTA, No accessory muscle use Cardiovascular: Irregularly irregular, tachycardia, +murmur Abdomen/GI:Soft, Non tender, Bowel sounds present Extremities/Musculoskeletal:normal inspection, no edema Neurologic/Psych:grossly no focal neurological deficits, +Dementia, Hearing impairment Skin: normal color, warm Results & Data Results & Data ([facility]) Vital Signs (Past 12 Hours) Vital Signs Temp Pulse Resp BP BP Pulse Ox Pulse Ox 04/13/21 11:03 36.6 C 102 H 18 107/80 98 04/13/21 08:00 98 04/13/21 07:11 36.6 C 108 H 20 118/79 98 04/13/21 03:02 36.6 C 110 H 18 102/66 98 Laboratory Results BMP 04/13/21 06:50 Sodium 137 Potassium 4.0 Chloride 105 Carbon Dioxide 28 BUN 8 Creatinine 0.59 L Glucose 84 Calcium 8.7 (1) UTI (urinary tract infection) Hematuria presence: without hematuria Urinary tract infection type: site unspecified Qualified Code(s): N39.0 - Urinary tract infection, site not specified
[2021-04-13] MEDS: DIGOXIN 0.125 MG TAB PO SCH (15:00)
[2021-04-13] MEDS: cefTRIAXone SODIUM 1,000 MG in DEXTROSE 5% 50 ML IV SCH (15:45)
[2021-04-13] MEDS ORDERED: WARFARIN SOD 7.5 MG TAB PO SCH (16:00)
[2021-04-13] MEDS: MELATONIN 3 MG TAB PO PRN (23:02)
[2021-04-14] MEDS: METOPROLOL TARTRATE 25 MG TAB PO SCH (05:44)
[2021-04-14 06:17] LABS: INR 2.1 (0.9-1.1)
[2021-04-14 06:26] LABS: BUN Creatinine Ratio 10.8 (10-20); Calcium 8.2 mg/dl (8.5-10.1); Creatinine Clr Calc Pharmacy 92.1 ml/min; Est GFR (African American) 111.9 ml/min; Est GFR (Non-African American) 96.5 ml/min; Potassium 3.6 mmol/L (3.5-5.1)
[2021-04-14] MEDS: PANTOprazole 40 MG TAB PO SCH (08:35)
[2021-04-14] MEDS: MAGNESIUM OXIDE 400 MG TAB PO SCH (08:35)
[2021-04-14] MEDS: MULTIVITAMIN TAB PO SCH (08:35)
[2021-04-14] MEDS: ACETAMINOPHEN 325 MG TAB PO PRN ×2 (09:56→16:47)
[2021-04-14] MEDS ORDERED: METOPROLOL TARTRATE 25 MG TAB PO ONE (10:43)
--- NOTE | 2021-04-14 10:47 | Cardiology Progress Note ---
Date of Service April 14, 2021 Assessment & Plan (1) Atrial fibrillation: (2) UTI (urinary tract infection): (3) HLD (hyperlipidemia): (4) HTN (hypertension): (5) H/O mechanical aortic valve replacement: (6) CAD (coronary artery disease): (7) Atrial fibrillation with RVR: Plan: Assessment and Plan: Chronic atrial fibrillation, elevated ventricular rate in the setting of E. coli urinary tract infection 6 beat run of NSVT, resolved. No recurrence. Antibiotic therapy per hospitalist. Transition metoprolol tartrate 25 mg q6 to 50 mg BID for improved compliance on discharge. History of mechanical AVR. Goal INR 2.5. Continue coumadin. INR 2.1 this mo rning. Given cognitive decline/dementia, will likely need placement on discharge. DVT prophylaxis: On full dose anticoagulation with Coumadin. Case discussed with Dr. Gonzalez. Admission and Anticipated Discharge Date Admission Date: April 09, 2021 Supervising Physician Co-Signing Physician Notes Patient seen and examined, chart, medications, telemetry reviewed. Patient unable to give additional information Plan and recommendations as outlined above goals heart rate control with metoprolol. Patient with long-term anticoagulation requirements given mechanical aortic valve replacement Subjective Patient is resting in bed comfortably. Due to confusion, is 1:1 for assistance. Denies complaints. Hard of hearing and dementia limits review of systems Review of Systems Review of Systems: A complete and accurate review of systems was unable to be obtained (acute illness, dementia) Physical Exam Constitutional: WD/WN, vitals as above no acute distress Eyes: PERRL, conjunctivae normal, anicteric sclerae Neck: trachea midline, no thyromegaly Respiratory: normal respiratory effort, lungs clear to auscultation Cardiovascular: Rate/Rhythm: + tachycardic and + irregularly irregular Heart Sounds: + murmur (II/ systolic murmur) Gastrointestinal (Abdomen): normal bowel sounds, soft, nontender, no hepatosplenomegaly Neurologic: + confused Psychiatric: Orientation: oriented to person and oriented to place Results & Data ([facility]) Vital Signs (Past 12 Hours) Vital Signs Temp Pulse Pulse Resp BP Pulse Ox Pulse Ox 04/14/21 08:00 96 04/14/21 06:59 36.6 C 87 16 110/69 98 04/14/21 04:20 36.8 C 103 H 16 113/71 95 04/14/21 00:00 96 04/13/21 23:50 97 H 04/13/21 23:47 36.9 C 93 H 16 114/76 98 Laboratory Results 04/14/21 04/14/21 Range/Units 05:40 05:40 PT 20.0 H (9.0-12.0) Seconds INR 2.1 H (0.9-1.1) Sodium 139 (136-145) mmol/L Potassium 3.6 (3.5-5.1) mmol/L Chloride 108 H (98-107) mmol/L Carbon Dioxide 28 (21-32) mmol/L Anion Gap 3 (3-11) BUN 7 (6-23) mg/dl Creatinine 0.65 (0.6-1.4) mg/dl Est Cr Clr Drug Dosing 92.1 ml/min Est GFR ( Amer) 111.9 ml/min Est GFR (Non-Af Amer) 96.5 ml/min BUN/Creatinine Ratio 10.8 (10-20) Glucose 82 (70-99(Fasting)) mg/dl Calcium 8.2 L (8.5-10.1) mg/dl Diagnostic Findings Telemetry reviewed - Atrial fibrillation with variable rates ranging 80-110 bpm Medications Administered Current Inpatient Medications Acetaminophen (Acetaminophen 325 Mg Tab) 650 mg PO Q4H PRN PRN Reason: Moderate Pain Stop: 05/09/21 19:03 Last Admin: 04/14/21 09:56 Dose: 650 mg Documented by: Digoxin (Digoxin 0.125 Mg Tab) 0.125 mg PO DAILY@1600 [facility] Stop: 05/09/21 17:59 Last Admin: 04/13/21 15:00 Dose: 0.125 mg Documented by: Ceftriaxone Sodium 1,000 mg/ (Dextrose) 50 mls @ 100 mls/hr IV Q24H [facility]; Protocol Stop: 04/17/21 14:59 Last Infusion: 04/13/21 16:32 Dose: Infused Documented by: Lisinopril (Lisinopril 5 Mg Tab) 5 mg PO DAILY [facility] Stop: 05/10/21 08:59 Last Admin: 04/10/21 07:52 Dose: 5 mg Documented by: Magnesium Oxide (Magnesium Oxide 400 Mg Tab) 400 mg PO QAM [facility] Stop: 05/11/21 09:59 Last Admin: 04/14/21 08:35 Dose: 400 mg Documented by: Melatonin (Melatonin 3 Mg Tab) 3 mg PO HS PRN PRN Reason: Sleep Stop: 05/10/21 00:30 Last Admin: 04/13/21 23:02 Dose: 3 mg Documented by: Metoprolol Tartrate (Metoprolol Tartrate 1 Mg/Ml Vial) 5 mg IV Q6 PRN PRN Reason: tachycardiac Stop: 05/09/21 17:59 Last Admin: 04/10/21 17:34 Dose: 5 mg Documented by: Metoprolol Tartrate (Metoprolol Tartrate 50 Mg Tab) 50 mg PO BID [facility] Stop: 05/14/21 20:59 Multivitamins (Multivitamin Tab) 1 tab PO DAILY [facility] Stop: 05/10/21 08:59 Last Admin: 04/14/21 08:35 Dose: 1 tab Documented by: Olanzapine (Olanzapine 10 Mg/2.1 Ml Sdv) 2.5 mg IM Q4H PRN PRN Reason: Anxiety/Agitation Stop: 05/10/21 00:47 Last Admin: 04/10/21 07:50 Dose: 2.5 mg Documented by: Ondansetron HCl (Ondansetron Inj 2 Mg/Ml 2 Ml Vial) 4 mg IV Q4H PRN PRN Reason: Nausea And Vomiting Stop: 05/09/21 19:03 Pantoprazole Sodium (Pantoprazole 40 Mg Tab) 40 mg PO DAILY [facility] Stop: 05/10/21 08:59 Last Admin: 04/14/21 08:35 Dose: 40 mg Documented by: Warfarin Sodium (Warfarin Sod 5 Mg Tab) 5 mg PO DAILY@1600 [facility] Stop: 05/14/21 15:59 (1) UTI (urinary tract infection) Hematuria presence: without hematuria Urinary tract infection type: site unspecified Qualified Code(s): N39.0 - Urinary tract infection, site not specified
[2021-04-14] MEDS: cefTRIAXone SODIUM 1,000 MG in DEXTROSE 5% 50 ML IV SCH (14:53)
[2021-04-14] MEDS: DIGOXIN 0.125 MG TAB PO SCH (15:00)
[2021-04-14] MEDS ORDERED: WARFARIN SOD 5 MG TAB PO SCH (16:00)
[2021-04-14] MEDS: METOPROLOL TARTRATE 1 MG/ML VIAL IV PRN (16:48)
--- NOTE | 2021-04-14 17:33 | Hospitalist Progress Note ---
Date of Service April 14, 2021 Assessment & Plan (1) Atrial fibrillation with RVR: Plan: Afib RVR 6 beats NSVT Normal TSH IV Lopressor as needed Continue digoxin Appreciate cardiology input Adjust Coumadin dose as needed Monitor INR: 2.8>2.1>1.6>2.1 Monitor electrolytes Continue metoprolol 50 mg twice daily Continue Coumadin (2) CAD (coronary artery disease): Plan: -Continue current medications (3) H/O mechanical aortic valve replacement: Plan: - Hx of such in 2005 at [place] in [place] - coumadin as above (4) UTI (urinary tract infection): Plan: Urine culture growing E.Coli Blood cultures no growth to date Continue Rocephin Acute Metabolic Encephalopathy Likely due to UTI in setting of Dementia -CT Head:No acute intracranial hemorrhage, no evidence of acute territorial infarction or other acute intracranial disease process. Reorient frequently Slowly Improving (5) HTN (hypertension): Plan: - Continue metoprolol Lisinopril on hold (6) Back pain: Plan: Chronic No new trauma or injury H/O fall 8 years ago from 10 feet high and landed on concrete. Uses a walker/cane at baseline Does not take chronic pain meds Follow-up as outpatient (7) HLD (hyperlipidemia): Plan: - not on statin therapy DVT Px: Coumadin CODE STATUS Full Code Disposition Patient lives alone Case management to help with discharge planning Admission and Anticipated Discharge Date Admission Date: April 09, 2021 Subjective Patient is seen and examined at bedside Difficult to obtain history given hearing impairment and dementia Lying comfortably in bed during my encounter Discussed with cardiology today Sitter at bedside Reports chronic back pain Review of Systems Review of Systems: All systems reviewed & are unremarkable except as noted in Subjective Physical Exam Physical Exam: Physical Exam: Vitals signs as noted above General Appearance:Thin, no apparent distress Head: normocephalic, Atraumatic Eyes: normal inspection, EOMI Neck: supple, Trachea midline Respiratory/Chest: Normal breath sounds, CTA, No accessory muscle use Cardiovascular: Irregularly irregular, tachycardia, +murmur Abdomen/GI:Soft, Non tender, Bowel sounds present Extremities/Musculoskeletal:normal inspection, no edema Neurologic/Psych:grossly no focal neurological deficits, +Dementia, Hearing impairment Skin: normal color, warm Results & Data Results & Data ([facility]) Vital Signs (Past 12 Hours) Vital Signs Temp Pulse Pulse Resp BP BP BP 04/14/21 16:48 123 H 123/90 04/14/21 15:02 36.7 C 107 H 19 98/67 L 04/14/21 15:00 107 H 04/14/21 11:49 36.4 C L 89 18 140/86 04/14/21 08:00 04/14/21 06:59 36.6 C 87 16 110/69 Pulse Ox Pulse Ox 04/14/21 16:48 04/14/21 15:02 97 04/14/21 15:00 04/14/21 11:49 96 04/14/21 08:00 96 04/14/21 06:59 98 Laboratory Results BMP 04/14/21 05:40 Sodium 139 Potassium 3.6 Chloride 108 H Carbon Dioxide 28 BUN 7 Creatinine 0.65 Glucose 82 Calcium 8.2 L (1) UTI (urinary tract infection) Hematuria presence: without hematuria Urinary tract infection type: site unspecified Qualified Code(s): N39.0 - Urinary tract infection, site not specified
[2021-04-14] MEDS: MELATONIN 3 MG TAB PO PRN (20:03)
[2021-04-14] MEDS: METOPROLOL TARTRATE 50 MG TAB PO SCH (20:04)
[2021-04-15 06:36] LABS: INR 2.9 (0.9-1.1); Prothrombin Time 26.9 Seconds (9.0-12.0)
[2021-04-15 06:59] LABS: BUN Creatinine Ratio 12.5 (10-20); Calcium 8.4 mg/dl (8.5-10.1); Creatinine Clr Calc Pharmacy 83.9 ml/min; Est GFR (African American) 107.3 ml/min; Est GFR (Non-African American) 92.5 ml/min; Potassium 3.5 mmol/L (3.5-5.1)
[2021-04-15] MEDS: MULTIVITAMIN TAB PO SCH (08:01)
[2021-04-15] MEDS: PANTOprazole 40 MG TAB PO SCH (08:01)
[2021-04-15] MEDS: METOPROLOL TARTRATE 50 MG TAB PO SCH ×2 (08:01→17:57)
[2021-04-15] MEDS: MAGNESIUM OXIDE 400 MG TAB PO SCH (08:01)
[2021-04-15] MEDS ORDERED: POTASSIUM CHLORIDE CRTAB 20 MEQ TABCR PO ONE (08:35)
--- NOTE | 2021-04-15 08:48 | Cardiology Progress Note ---
Date of Service April 15, 2021 Assessment & Plan (1) Atrial fibrillation: (2) UTI (urinary tract infection): (3) HLD (hyperlipidemia): (4) HTN (hypertension): (5) H/O mechanical aortic valve replacement: (6) CAD (coronary artery disease): (7) Atrial fibrillation with RVR: Plan: Chronic atrial fibrillation, elevated ventricular rate in the setting of E. coli urinary tract infection 6 beat run of NSVT, resolved. No recurrence. Antibiotic therapy per hospitalist. Continue metoprolol tartrate 50 mg BID- should HR remain elevated can consider increasing as an outpatient. Would use caution due to the risk of bradycardia and hypotension as an outpatient. History of mechanical AVR. Goal INR 2.5. Continue Coumadin. INR 2.9 this morning. Given cognitive decline/dementia, will likely need placement on discharge. DVT prophylaxis: On full dose anticoagulation with Coumadin. Admission and Anticipated Discharge Date Admission Date: April 09, 2021 Supervising Physician Co-Signing Physician Notes Patient seen and examined at the bedside. Poor historian and hard of hearing. Denies chest pain or unusual shortness of breath. No orthopnea, PND, or lower extremity edema. Tolerating diet and medications. Telemetry reveals atrial fibrillation with heart rate averaging 90-95 bpm. PE: VSS, Heart: Irregular rhythm, normal S1-S2. No murmur. Lungs: Clear bilateral, no rales, rhonchi, wheeze. Extremities: No edema. A/P: Agree with above AP history, physical exam, assessment and plan. Continue Coumadin for goal INR of 2.5 due to atrial fibrillation and mechanical aortic valve replacement. Monitor telemetry while hospitalized. Continue current dose of beta-shiloh. Outpatient cardiology follow-up in 2-4 weeks. Subjective Patient is resting in bed comfortably. Due to confusion, is 1:1 for assistance. Denies complaints. No chest pain or shortness of breath. No palpitations, dizziness of syncope. Hard of hearing and dementia limits review of systems. Tele: Afib 80-90s, 140s with ambulation last evening- Metoprolol tartrate 25mg Q6 transitioned to 50 mg BID yesterday 04/14 INR: 2.9 (04/15) Review of Systems Review of Systems: Unobtainable due to cognitive status A complete and accurate review of systems was unable to be obtained (acute illness, dementia) Physical Exam Physical Exam: General: No acute distress. A+Ox3. HEENT: Normocephalic. Atraumatic. Conjunctiva and sclera clear. NECK: No carotid bruits. No JVD. Carotid upstrokes are brisk. Heart: Irregular rhythm. S1 and S2 noted without murmur, rubs, gallops. Lungs: Clear to auscultation. No wheezes, rhonchi, rales. Abdomen: Normal bowel sounds. Soft. Nontender. No masses or organomegaly. No abdominal bruits. Extremities: No edema. No clubbing or cyanosis. Pulses: radial=2/4, posterior tibial=2/4, dorsalis pedis = 2/4. NEURO: No focal deficits. PSYCH: Normal. Results & Data ([facility]) Vital Signs (Past 12 Hours) Vital Signs Temp Pulse Pulse Resp BP BP Pulse Ox 04/15/21 07:33 82 04/15/21 07:02 36.5 C 110 H 17 121/75 96 04/15/21 03:23 36.4 C L 102 H 18 105/68 95 04/14/21 23:27 36.7 C 98 H 20 125/79 97 04/14/21 22:20 98 H Laboratory Results 04/15/21 04/15/21 Range/Units 06:17 06:17 PT 26.9 H (9.0-12.0) Seconds INR 2.9 H (0.9-1.1) Sodium 139 (136-145) mmol/L Potassium 3.5 (3.5-5.1) mmol/L Chloride 107 (98-107) mmol/L Carbon Dioxide 28 (21-32) mmol/L Anion Gap 4 (3-11) BUN 9 (6-23) mg/dl Creatinine 0.72 (0.6-1.4) mg/dl Est Cr Clr Drug Dosing 83.9 ml/min Est GFR ( Amer) 107.3 ml/min Est GFR (Non-Af Amer) 92.5 ml/min BUN/Creatinine Ratio 12.5 (10-20) Glucose 80 (70-99(Fasting)) mg/dl Calcium 8.4 L (8.5-10.1) mg/dl Diagnostic Findings Echo 04/10/2021: Afib RVR with elevated rates Mild concentric LVH LA mildly dilated LVEF 50-55% Mechanical Aortic Valve trace prosthetic aortic regurg Gradients normal for prosthetic aortic valve Mod MR no evidence of pulm HTN (1) UTI (urinary tract infection) Hematuria presence: without hematuria Urinary tract infection type: site unspecified Qualified Code(s): N39.0 - Urinary tract infection, site not specified
[2021-04-15] MEDS: DIGOXIN 0.125 MG TAB PO SCH (15:50)
[2021-04-15] MEDS: cefTRIAXone SODIUM 1,000 MG in DEXTROSE 5% 50 ML IV SCH (15:51)
[2021-04-15] MEDS ORDERED: WARFARIN SOD 2.5 MG TAB PO SCH (16:00)
--- NOTE | 2021-04-15 17:22 | Hospitalist Progress Note ---
Date of Service April 15, 2021 Assessment & Plan (1) Atrial fibrillation with RVR: Plan: Afib RVR 6 beats NSVT Normal TSH IV Lopressor as needed Continue digoxin Appreciate cardiology input Adjust Coumadin dose as needed Monitor INR: 2.8>2.1>1.6>2.1>2.9 Monitor electrolytes Continue metoprolol 50 mg twice daily Continue Coumadin--adjust dose as needed Needs follow-up with cardiology upon discharge (2) CAD (coronary artery disease): Plan: -Continue current medications (3) H/O mechanical aortic valve replacement: Plan: - Hx of such in 2005 at [facility] in [place] - coumadin as above (4) UTI (urinary tract infection): Plan: Urine culture growing E.Coli Blood cultures no growth to date Continue Rocephin to complete 7 day course Acute Metabolic Encephalopathy Likely due to UTI in setting of Dementia -CT Head:No acute intracranial hemorrhage, no evidence of acute territorial infarction or other acute intracranial disease process. Reorient frequently Slowly Improving (5) HTN (hypertension): Plan: - Continue metoprolol Lisinopril on hold (6) Back pain: Plan: Chronic No new trauma or injury H/O fall 8 years ago from 10 feet high and landed on concrete. Uses a walker/cane at baseline Does not take chronic pain meds Follow-up as outpatient (7) HLD (hyperlipidemia): Plan: - not on statin therapy DVT Px: Coumadin CODE STATUS Full Code Disposition Patient lives alone Case management to help with discharge planning Likely DC tomorrow if stable Admission and Anticipated Discharge Date Admission Date: April 09, 2021 Subjective Patient is seen and examined at bedside Difficult to obtain history given hearing impairment and dementia Poor Sleep Overnight Sitter at bedside Offers no complaints Review of Systems Review of Systems: All systems reviewed & are unremarkable except as noted in Subjective Physical Exam Physical Exam: Physical Exam: Vitals signs as noted above General Appearance:Thin, no apparent distress Head: normocephalic, Atraumatic Eyes: normal inspection, EOMI Neck: supple, Trachea midline Respiratory/Chest: Normal breath sounds, CTA, No accessory muscle use Cardiovascular: Irregularly irregular, tachycardia, +murmur Abdomen/GI:Soft, Non tender, Bowel sounds present Extremities/Musculoskeletal:normal inspection, no edema Neurologic/Psych:grossly no focal neurological deficits, +Dementia, Hearing impairment Skin: normal color, warm Results & Data Results & Data ([facility]) Vital Signs (Past 12 Hours) Vital Signs Temp Pulse Pulse Resp BP BP Pulse Ox 04/15/21 16:48 103 H 04/15/21 15:50 109 H 04/15/21 15:01 36.6 C 99 H 18 107/67 96 04/15/21 14:35 36.7 C 108 H 16 105/62 98 04/15/21 11:51 97 H 04/15/21 11:21 36.6 C 17 108/75 99 04/15/21 07:33 82 04/15/21 07:02 36.5 C 110 H 17 121/75 96 Laboratory Results BMP 04/15/21 06:17 Sodium 139 Potassium 3.5 Chloride 107 Carbon Dioxide 28 BUN 9 Creatinine 0.72 Glucose 80 Calcium 8.4 L (1) UTI (urinary tract infection) Hematuria presence: without hematuria Urinary tract infection type: site unspecified Qualified Code(s): N39.0 - Urinary tract infection, site not specified
[2021-04-16 03:37] VITALS: TEMP 97.7
--- NOTE | 2021-04-16 07:29 | Cardiology Progress Note ---
Date of Service April 16, 2021 Assessment & Plan (1) Atrial fibrillation: (2) UTI (urinary tract infection): (3) HLD (hyperlipidemia): (4) HTN (hypertension): (5) H/O mechanical aortic valve replacement: (6) CAD (coronary artery disease): (7) Atrial fibrillation with RVR: Plan: Chronic atrial fibrillation, elevated ventricular rate in the setting of E. coli urinary tract infection 6 beat run of NSVT, resolved. No recurrence. Antibiotic therapy per hospitalist. HR controlled in 80s over night, continue metoprolol tartrate 50 mg BID. Blood pressures well controlled. Lisinopril 5 mg remains on hold. History of mechanical AVR. Goal INR 2.5. Continue Coumadin. INR 2.5 this morning. Given cognitive decline/dementia, will likely need placement on discharge. Cardiology follow up in 2-4 weeks following DC DVT prophylaxis: On full dose anticoagulation with Coumadin. Admission and Anticipated Discharge Date Admission Date: April 09, 2021 Supervising Physician Co-Signing Physician Notes Patient seen and examined at the bedside. Poor historian and hard of hearing. Pleasant and cooperative. Denies chest pain or unusual shortness of breath. No orthopnea, PND, or lower extremity edema. Tolerating diet and medications. Telemetry reveals atrial fibrillation with heart rate averaging 90-95 bpm. PE: VSS, Heart: Irregular rhythm, normal S1-S2. No murmur. Lungs: Clear bilateral, no rales, rhonchi, wheeze. Extremities: No edema. A/P: Agree with above AP history, physical exam, assessment and plan. Continue Coumadin for goal INR of 2.5 due to atrial fibrillation and mechanical aortic valve replacement. Monitor telemetry while hospitalized. Continue current dose of beta-shiloh. Outpatient cardiology follow-up in 2-4 weeks. Subjective Patient is resting in bed comfortably. Due to confusion, is 1:1 for assistance. Denies complaints. No chest pain or shortness of breath. No palpitations, dizziness of syncope. Hard of hearing and dementia limits review of systems. Tele: Afib 80s, occasional PAC over night. INR 2.5 (04/16) Review of Systems Review of Systems: All systems reviewed & are unremarkable except as noted in HPI & below ROS limited due to dementia/cognitive status Physical Exam Physical Exam: General: No acute distress. A+Ox3. HEENT: Normocephalic. Atraumatic. Conjunctiva and sclera clear. NECK: No carotid bruits. No JVD. Carotid upstrokes are brisk. Heart: Irregular rhythm. S1 and S2 noted without murmur, rubs, gallops. Lungs: Clear to auscultation. No wheezes, rhonchi, rales. Abdomen: Normal bowel sounds. Soft. Nontender. No masses or organomegaly. No abdominal bruits. Extremities: No edema. No clubbing or cyanosis. Pulses: radial=2/4, posterior tibial=2/4, dorsalis pedis = 2/4. NEURO: No focal deficits. PSYCH: Normal. Results & Data ([facility]) Vital Signs (Past 12 Hours) Vital Signs Temp Pulse Resp BP BP Pulse Ox 04/16/21 06:58 36.5 C 92 H 18 118/75 97 04/16/21 03:36 36.5 C 99 H 16 125/79 97 04/15/21 23:00 36.8 C 120 H 18 148/83 H 96 04/15/21 19:56 36.8 C 105 H 18 123/79 98 Diagnostic Findings Echo 04/10/2021: Afib RVR with elevated rates Mild concentric LVH LA mildly dilated LVEF 50-55% Mechanical Aortic Valve trace prosthetic aortic regurg Gradients normal for prosthetic aortic valve Mod MR no evidence of pulm HTN (1) UTI (urinary tract infection) Hematuria presence: without hematuria Urinary tract infection type: site unspecified Qualified Code(s): N39.0 - Urinary tract infection, site not specified
[2021-04-16 07:58] LABS: Hematocrit (blood only) 37.5 % (42-52); Hemoglobin 12.4 g/dL (14.0-18.0); Mean Corpuscular Hemoglobin 31.2 pg (25-34); Mean Corpuscular Hgb Conc 33.1 g/dL (32-36); Mean Corpuscular Volume 94.2 fL (80-100); Mean Platelet Volume 11.7 fL (7.4-10.4); Platelet Count 154 K/uL (130-400); RDW Standard Deviation 47.9 fL (36.4-46.3); Red Blood Count 3.98 M/uL (4.7-6.1); White Blood Count 4.72 K/uL (4.8-10.8)
[2021-04-16] MEDS: METOPROLOL TARTRATE 50 MG TAB PO SCH (08:00)
[2021-04-16] MEDS: PANTOprazole 40 MG TAB PO SCH (08:01)
[2021-04-16] MEDS: MAGNESIUM OXIDE 400 MG TAB PO SCH (08:01)
[2021-04-16] MEDS: MULTIVITAMIN TAB PO SCH (08:01)
[2021-04-16 08:08] LABS: INR 2.5 (0.9-1.1); Prothrombin Time 23.8 Seconds (9.0-12.0)
[2021-04-16 08:17] LABS: BUN Creatinine Ratio 11.4 (10-20); Calcium 8.4 mg/dl (8.5-10.1); Creatinine Clr Calc Pharmacy 85.6 ml/min; Est GFR (African American) 108.5 ml/min; Est GFR (Non-African American) 93.6 ml/min; Potassium 3.7 mmol/L (3.5-5.1)
[2021-04-16] MEDS ORDERED: cefUROXime axetil 250 MG TABLET PO SCH (09:00)
--- NOTE | 2021-04-16 11:38 | Hospitalist Progress Note ---
Date of Service April 16, 2021 Assessment & Plan (1) Atrial fibrillation with RVR: Plan: per Dr. Peres's notes with addendum: Afib RVR 6 beats NSVT Normal TSH Range Examiner consulted Metoprolol 50mg BID started Continued digoxin HR improved INR 2.5 continue coumadin monitor INR Needs follow-up with cardiology upon discharge (2) CAD (coronary artery disease): Plan: -Continue current medications (3) H/O mechanical aortic valve replacement: Plan: - Hx of such in 2005 at [place] in [place] - coumadin as above (4) UTI (urinary tract infection): Plan: Urine culture growing E.Coli Blood cultures no growth to date given Rocephin IV x 6 days finish 4 more days of Cefuroxime PO Acute Metabolic Encephalopathy Likely due to UTI in setting of Dementia -CT Head:No acute intracranial hemorrhage, no evidence of acute territorial infarction or other acute intracranial disease process. Reorient frequently Slowly Improving (5) HTN (hypertension): Plan: - Continue metoprolol Lisinopril held to prevent hypotension BP stable overall (6) Back pain: Plan: Chronic No new trauma or injury H/O fall 8 years ago from 10 feet high and landed on concrete. Uses a walker/cane at baseline Does not take chronic pain meds Follow-up as outpatient (7) HLD (hyperlipidemia): Plan: - not on statin therapy DVT Px: Coumadin CODE STATUS Full Code Disposition transition to [facility] then SNF Admission and Anticipated Discharge Date Admission Date: April 09, 2021 Subjective ff up a fib in RVR, etc seen resting in bed, oriented x 1-2 in good spirits very pleasant states he feels fine overall no chest pain, dyspnea, palpitations, dizziness no abdominal pain, problems with urination, fever/chills no other symptoms states he is ready for discharge today Review of Systems Review of Systems: all noted and negative except for above Physical Exam Physical Exam: General- oriented x 2, not in distress, speaks in sentences with no effort or accessory muscle use Eyes- anicteric Neck- no JVD Lungs- clear breath sounds bilaterally, no rales/wheezes Heart- normal rate, irregularly irregular rhythm; no murmurs Abdomen- normal bowel sounds, nondistended, soft, nontender Extremities- no pretibial edema, no calf tenderness Neuro- alert, oriented x 2; no gross focal neurologic deficits Skin- warm & dry Results & Data Results & Data ([facility]) Vital Signs (Past 12 Hours) Vital Signs Temp Pulse Resp BP BP Pulse Ox 04/16/21 06:58 36.5 C 92 H 18 118/75 97 04/16/21 03:36 36.5 C 99 H 16 125/79 97 all noted and reviewed including below (1) UTI (urinary tract infection) Hematuria presence: without hematuria Urinary tract infection type: site unspecified Qualified Code(s): N39.0 - Urinary tract infection, site not specified
[2021-04-16 11:42] VITALS: O2SAT 99
--- NOTE | 2021-04-16 11:52 | Discharge Summary ---
Date of Service April 16, 2021 Admission HPI Per Admitting Provider This is a 75 yo M with PMHx of mechanical aortic valve replacement in 2005, chronic A. fib on Coumadin, CAD, HTN, HLD who presents to the ER with acute onset of weakness and worsening confusion, possibly with hx of some dementia at baseline. His daughter is present at bedside and supports the history. The patient is also very hard of hearing, but hears best out of his left ear with hearing aid in. Patient routinely follows with the [place] for his medical care. Patient is unable to tell me chronological events today, and looks to his daughter for several of his answers. Daughter is concerned that there is some baseline dementia however that it is worsened, and that when she leaves he will become increasingly confused. Amongst becoming increasingly confused, he has not taken his pills including digoxin. Pt was instructed last week to stop taking Coumadin because his INR with supratherapeutic. Today his INR is 2.5. Pt admits to depressed appetite. He denies any urinary type symptoms although his UA appears to be grossly infected today. He reports left lower back and buttocks pain which is chronic however seems to be slightly worse today. He denies any acute injury or trauma to the area. 8 years ago he fell from 10 feet in the air and hit concrete, and since then his back has never been the same. He never had surgery performed and is not on any chronic pain medication at baseline, only uses Tylenol OTC. Admission Exam (Per Admitting) Constitutional Physical Exam: General: awake, alert, no apparent distress, + thin Head: Normocephalic, atraumatic ENT: PERRL, EOMI, no pharyngeal exudate, mucous membranes moist Chest: Clear to auscultation, on room air, no adventitious breath sounds Cardiac: + Irregularly irregular with heart rate in the 130s, faint murmur, no JVD, normal peripheral pulses, good capillary refill Abdominal: NABS x 4 quadrants, soft, nondistended, nontender to palpation, no rebound or guarding Extremities: Normal inspection, no peripheral edema or erythema, calfs nontender to palpation Psych: Normal mood and affect Neuro: AAO x 3, strength intact bilaterally and rated 5/5, no motor deficits, speech is clear, no peripheral sensory deficits Discharge Data Consultations 04/09/21 15:42 ED Decision to Admit Stat 04/09/21 19:04 Consult Cardiology Routine 04/16/21 10:36 Burn CD for patient Stat Procedures Performed XR chest 1V portable CLINICAL HISTORY: Atypical chest pain TECHNIQUE: Single frontal radiograph of the chest was obtained. Comparison: Comparison is made to chest one view 09/07/2016 FINDINGS: No lines and tubes are seen. Cardiomegaly is noted. Interstitial prominence is seen in the bilateral lower lungs. No evidence of pleural effusion or pneumothorax. IMPRESSION: Interstitial prominence in the bilateral lower lungs may represent scarring or atelectasis. ACT 112: Negative or not required by law. CT head/brain wo con CLINICAL HISTORY: confusion Technique: Contiguous axial CT images of the head were acquired from the base of the skull to the vertex without intravenous contrast administration. Images were viewed in brain, subdural and bone windows. Automated dose lowering techniques and/or adjustment according to patient size were utilized for this exam. Comparison: Comparison is made to CT head 09/08/2016 Findings: Areas of decreased attenuation are present in the periventricular and subcortical white matter bilaterally consistent with small vessel ischemic disease. Generalized cerebral atrophy with commensurate enlargement of the ventricles, sulci, and cisterns is also present. There is no acute intracranial hemorrhage or evidence of acute territorial infarction. No shift of the midline structures, mass effect, or extra-axial abnormalities are shown. Atherosclerotic calcifications are present in the intracranial segments of the internal carotid arteries. Focal encephalomalacia in the left occipital region is unchanged from prior exam. Imaged portions of the paranasal sinuses and mastoid air cells are clear. The orbits appear normal. There are no acute fractures of the calvaria or scalp swelling. Impression: No acute intracranial hemorrhage, no evidence of acute territorial infarction or other acute intracranial disease process. ACT 112: Negative or not required by law. ABDOMEN AND PELVIS CT WITH IV CONTRAST HISTORY: Acute left-sided flank pain with urinary tract infection left flank pain, ?UTI TECHNIQUE: Multiaxial CT images of the abdomen and pelvis were performed following the IV administration of 94 cc of Optiray, A dose lowering technique was utilized adhering to the principles of ALARA. COMPARISON STUDY: CT abdomen and pelvis 09/05/2016 FINDINGS: Moderate cardiomegaly. Aortic and mitral annular with coronary artery calcifications. Trace right pleural effusion. Pulmonary edema with mild bibasilar atelectasis. No pneumatosis or pneumoperitoneum respiratory motion artifact limits the study. Unremarkable spleen, pancreas and adrenal glands. Cholelithiasis without CT evidence of acute cholecystitis. There is no biliary ductal dilation. Unremarkable liver. There is symmetric enhancement of the kidneys. There are a few calculi of the inferior pole right kidney measuring up to 4 mm. 3 mm nonobstructing calculus of the interpolar left kidney. Decreased amount of left renal calculi compared to the prior study. There are a few cysts noted within left kidney measuring up to 1.6 cm within the superior pole. No ureteral calculi or hydronephrosis. Prostamegaly. Urinary bladder wall thickening with partial distention. Mild perivesicular stranding. Atherosclerotic plaque of the abdominal aorta and branch vessels. No aneurysm. No adenopathy. No bowel obstruction. Colonic diverticulosis. Mild wall thickening of the sigmoid colon is likely secondary to partial distention. Normal appendix. Demineralized appearance of the bones. Degenerative changes of the spine, pelvis and hips. Subacute to chronic appearing bilateral rib fractures, most of which are new from prior study. Multilevel intervertebral disc space narrowing, severe at L1-L2. Mild superior endplate compression deformity at T9 similar to prior. Moderate T11 superior endplate compression deformity without retropulsion and mild paravertebral edema. Chronic T12 compression deformity. Mild superior endplate compression deformity of the L1 and L2 vertebral bodies. Severe L4 compression deformity. Dextroscoliosis of the lumbar spine centered at L1-L2. IMPRESSION: 1. Numerous thoracolumbar compression deformities are new from 09/05/2016 and appear to be acute, notably at the T11, L1 and L2 levels with moderate paravertebral edema. No associated retropulsion. 2. Bilateral nephrolithiasis. No ureteral calculi or hydronephrosis. 3. Cardiomegaly with pulmonary edema, trace right pleural effusion with bibasilar atelectasis. 4. Cholelithiasis without CT evidence of acute cholecystitis. 5. No bowel obstruction or bowel wall thickening. 6. Colonic diverticulosis. 7. Prostamegaly with urinary bladder wall thickening and perivesicular stranding. Correlate with urinalysis to exclude cystitis. 8. Additional findings as above. ACT 112: Negative or not required by law. Hospital Course (1) Atrial fibrillation with RVR: per Dr. Peres's notes with addendum: Afib RVR 6 beats NSVT Normal TSH Corporate Financial Analyst consulted Metoprolol 50mg BID started Continued digoxin HR improved INR 2.5 continue coumadin 2.5mg daily repeat INR daily Needs follow-up with cardiology upon discharge (2) CAD (coronary artery disease): -Continue current medications (3) H/O mechanical aortic valve replacement: - Hx of such in 2005 at [place] - coumadin as above (4) UTI (urinary tract infection): Urine culture growing E.Coli Blood cultures no growth to date given Rocephin IV x 6 days finish 4 more days of Cefuroxime PO Acute Metabolic Encephalopathy Likely due to UTI in setting of Dementia -CT Head:No acute intracranial hemorrhage, no evidence of acute territorial infarction or other acute intracranial disease process. Reorient frequently Slowly Improving (5) HTN (hypertension): - Continue metoprolol Lisinopril held to prevent hypotension BP stable overall (6) Back pain: Chronic No new trauma or injury H/O fall 8 years ago from 10 feet high and landed on concrete. Uses a walker/cane at baseline Does not take chronic pain meds Follow-up as outpatient (7) HLD (hyperlipidemia): - not on statin therapy DVT Px: Coumadin CODE STATUS Full Code Disposition transition to [place] [facility] then SNF
[2021-04-16 12:41] VITALS: BP 118/75; PULSE 118
== END 2021-04-16 13:15 | DRG 308 ==
LOC: ED 11:47 → SUATTDRO 15:54 → EDINP 15:54 → 2S 20:39